=== PATIENT | female | born 1970 | race Hispanic/Latino ===

== ENCOUNTER 2017-09-27 10:29 | Inpatient (IN) | payer MEDICARE, OTHER ==
[2017-09-27] MEDS ORDERED: Sodium Chloride 0.9% 1,000 ML IV STA (11:54)
[2017-09-27] MEDS ORDERED: Iohexol 240 (50 ml) ONE (12:03)
[2017-09-27 12:24] LABS: PH,URINE 6.5 (4.7-8.0); URINE BILIRUBIN NEGATIVE (NEGATIVE); URINE BLOOD NEGATIVE (NEGATIVE); URINE GLUCOSE (UA) NEGATIVE (NEGATIVE); URINE LEUKOCYTE ESTERASE TRACE Leu/uL (NEGATIVE); URINE PROTEIN NEGATIVE mg/dL (<30 mg/dL); URINE UROBILINOGEN 0.2 E.U./dL (<1 E.U./dL)
[2017-09-27 12:25] LABS: URINE APPEARANCE CLEAR (CLEAR); URINE COLOR YELLOW (YELLOW)
[2017-09-27 12:28] LABS: URINE AMORPHOUS SEDIMENT FEW; URINE BACTERIA MANY (NEG); URINE RBC 0 - 2 /hpf (0-2)
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
[2017-09-27 12:41] LABS: BASO # 0.08 K/mm3 (0.0-2.0); BASO % 0.8 % (0.0-3.0); EOS # 0.5 (0.0-0.7); EOS % 4.3 % (1.5-5.0); GRAN # 7.49 (1.4-6.5); GRAN % 70.8 % (50.0-68.0); HEMOGLOBIN 11.8 g/dL (12.0-16.0); LYMPH # 2.1 (1.2-3.4); LYMPH % 19.6 % (22.0-35.0); MEAN CELL VOLUME 88.2 fl (80.0-105.0); MEAN CORPUSCULAR HEMOGLOBIN 28.3 pg (25.0-35.0); MEAN CORPUSCULAR HGB CONC 32.1 g/dl (31.0-37.0); MEAN PLATELET VOLUME 8.2 fl (7.0-11.0); MONO # 0.5 (0.1-0.6); MONO % 4.5 % (1.0-6.0); RBC 4.17 10^6/uL (3.5-6.1); RED CELL DISTRIBUTION WIDTH 15.3 % (11.5-14.5); WHITE BLOOD COUNT 10.6 10^3/ul (4.5-11.0)
[2017-09-27 12:47] LABS: VENOUS BLOOD GAS BASE EXCESS -1.1 mmol/L (0.0-2.0); VENOUS BLOOD GAS PO2 69 mm/Hg (30-55); VENOUS BLOOD PH 7.29 (7.32-7.43)
[2017-09-27 12:54] LABS: ALB/GLOB RATIO 1.4 (1.1-1.8); ALT/SGPT 35 U/L (7-56); AST/SGOT 23 U/L (14-36); BLOOD UREA NITROGEN 13 mg/dL (7-21); CALCIUM 8.7 mg/dL (8.4-10.5); GFR AFRICAN-AMERICAN > 60; GFR NON-AFRICAN AMERICAN 54; LIPASE 112 U/L (23-300)
[2017-09-27 12:55] LABS: INR 0.91 (0.93-1.08); PARTIAL THROMBOPLASTIN TIME 38.7 Seconds (25.1-36.5); PROTHROMBIN TIME 10.5 SECONDS (9.4-12.5)
[2017-09-27] MEDS ORDERED: Iohexol 350 MG/100 ML VIAL ONE (13:02)
[2017-09-27 14:54] LABS: BARBITURATES, UR NEGATIVE (NEGATIVE); BENZODIAZEPINES, UR NEGATIVE (NEGATIVE); OPIATES, UR NEGATIVE (NEGATIVE); PHENCYCLIDINE, UR NEGATIVE (NEGATIVE)
--- NOTE | 2017-09-27 15:10 | CT ---
PROCEDURE: CT scan abdomen pelvis dated 09/27/2017 HISTORY: Abdominal pain with bloating, bloating, diarrhea; history of SLE COMPARISON: No prior study available comparison TECHNIQUE: Contiguous axial images of the abdomen and pelvis performed following oral and intravenous injection of approximately 100 cc of Omnipaque 350 contrast material. Additional 2 dimensional sagittal and coronal reformats generated. Radiation dose: Total exam DLP = This CT exam was performed using one or more of the following dose reduction techniques: Automated exposure control, adjustment of the mA and/or kV according to patient size, and/or use of iterative reconstruction technique. FINDINGS: LOWER THORAX: Lung bases are clear. No infiltrate effusion or basilar pneumothorax. There is a small hiatal hernia with slight wall thickening of the distal esophagus that could be due to protrusion of gastric mucosa however possibility of esophagitis not excluded. Clinical correlation recommended. Heart size within range of normal. No significant pericardial effusion. LIVER: Liver exhibits relatively upper limits normal size measuring over 18.0 cm. No obvious hepatic masses or collections. Portal and splenic veins are opacified. . Some very minimal central intrahepatic biliary ductal dilatation. GALLBLADDER AND BILE DUCTS: Cholecystectomy. PANCREAS: Pancreas appears grossly unremarkable without masses collections or calcifications. . SPLEEN: Spleen exhibits normal size and attenuation pattern. ADRENALS: There are no adrenal lesions. KIDNEYS AND URETERS: There are several tiny less than 3 mm bilateral renal calculi. . Probable very tiny cyst posterolateral mid cortex mid pole left kidney. Mild prominence of the left renal pelvis and proximal left ureter however no evidence of calculi seen within the ureters. Urinary BLADDER: Urinary bladder is incompletely distended which presumably accounts in part for thick-walled appearance. Rule out cystitis with followup urinalysis. REPRODUCTIVE: Uterus and adnexal structures appear grossly unremarkable. APPENDIX: Seen on axial coronal sequence image number [id number]. No periappendiceal inflammatory changes however note made of at least 2 small nonspecific mesenteric lymph nodes right lower quadrant of the abdomen ; rule out mesenteric adenitis. BOWEL: Evaluation of the bowel is limited due to the incomplete opacification. . The visualized small bowel exhibit normal contour and caliber. No evidence of acute mechanical small bowel obstruction. Moderate amount stool seen throughout the cecum ascending and transverse colon. Note that most of the descending colon is collapsed which may in part account for wall thickening however the possibility of an inflammatory process given the patient's history of diarrheal illness not excluded. Clinical correlation recommended. There are also colonic diverticula the bulk which arise from the sigmoid colon which felt to be incidental . No significant diverticular changes are seen along the aforementioned segment of descending colon. There is also a very minor wall thickening of the distal sigmoid colon nonspecific though again inflammatory process not excluded. PERITONEUM: Unremarkable. No fluid collection. No free air. LYMPH NODES: Unremarkable. No enlarged lymph nodes. VASCULATURE: No evidence of abdominal aortic or iliac artery aneurysms. BONES: Mild multilevel degenerative spondylosis of the lower thoracic and lumbar spine. OTHER FINDINGS: None. IMPRESSION: There is collapse of the descending colon which may in part account for thick-walled appearance however the patient's history of diarrheal illness the, the possibility of a nonspecific mild colitis must be considered. In addition, there appears to be minor wall thickening of the distal sigmoid colon as well. Clinical correlation recommended. . There is also mild wall thickening of the urinary bladder which is likely due to underdistention no cystitis not excluded. Correlation with urinalysis recommended. Small hiatal hernia with wall thickening of the distal esophagus. Rule out esophagitis. There are several tiny less than 3 mm nonobstructing bilateral renal calculi Cholecystectomy. See above discussion for additional details and findings
[2017-09-27 20:10] VITALS: O2SAT 99
[2017-09-27] MEDS ORDERED: Albuterol HFA 90 mcg/actuation (8 g) IH PRN (21:52)
--- NOTE | 2017-09-27 22:13 | CARD ---
APPROVED REPORT EKG Measurement Heart [id number] <Conclusion> Sinus tachycardia Otherwise normal ECG
[2017-09-27] MEDS ORDERED: Alum-Mag Hydrox-Simethicone Susp (30 mL) PO PRN (23:05)
[2017-09-27] MEDS ORDERED: Magnesium Hydroxide Susp 30 ml UD PO PRN (23:05)
--- NOTE | 2017-09-28 01:58 | PCM.BM ---
<Myla Ellison - Last Filed: 09/28/17 01:55> Treatment Plan Problems - Problems identified on initial assessmt Visual Hallucinations Date Initiated: 09/28/17 Time Initiated: 01:55 Assessment reference: NA Status: Active Alteration in Emotional Status Date Initiated: 09/28/17 Time Initiated: 01:55 Assessment reference: NA Status: Active Ineffective Coping Date Initiated: 09/28/17 Time Initiated: 01:56 Assessment reference: NA Status: Active Treatment assets and liabiliti Patient Assests: cooperative, educated, ADL independent, good support system, negotiates basic needs, cognitively intact Patient Liabilities: financial problems, relationship conflicts, medical problems - Milieu Protocol Maintain good personal hygiene: daily Encourage regular showers, daily Remind patient to perform daily oral care, daily Assist patient to perform ADL's Conduct patient checks and document Observation sheet: Q15 minutes Maintain personal safety: every shift Educate patient to report safety concerns to staff, every shift Monitor environment for contraband/sharps Medication safety: Monitor for expected outcome, potential side effects: every shift, Assess barriers to learning: every shift, Assess readiness for medication education: every shift Discharge/Continuing Care - Education Needs Education Needs: Patient Medication, Patient Diagnosis/Disease Process, Patient Coping Skills, Patient Community resources, Patient Activities of Daily Living, Patient Pain, Patient Nutrition, Patient Health Practices/Safety, Patient Aftercare Safety Plan - Discharge Discharge Criteria: Tolerates medication w/o severe side effects, Free of Suicidal thoughts, Free of paranoid thoughts, Normal sleep pattern, Ability to care for self, Reduction of target symptoms <Iva Guillermo - Last Filed: 09/28/17 12:49> - Diagnosis (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 Interventions: 09/28/17 12:50 Psychoeducation supportive therapy Psychopharmacology/adjustment of medications as needed/ monitoring possible side effects Evaluate pt on daily basis Compliance with medications and follow up appointments Long acting medication if pt is noncompliant with pill form Suicide and homicide risk assessment and prevention, coping strategies, safety plan Relapse prevention Reduction of symptoms Improve functional status Possible assertive community treatment Cognitive behavioral therapy Family involvement Possible social skill training as outpatient (2) Generalized anxiety disorder Status: Acute Interventions: 09/28/17 12:51 Psychoeducation Psychopharmacology/adjustment of medications as needed/ monitoring possible side effects Evaluate pt on daily basis Discussion of importance of being compliant with medications and follow up appointments Suicide and homicide risk assessment and prevention, coping strategies, safety plan Reduction of symptoms Relaxation techniques and breathing exercises Improve functional status Family involvement Cognitive behavioral therapy as outpatient <Dolores Ramos - Last Filed: 09/29/17 16:32> Family Contact - Outside Agency Dr. Gurjit Rai [facility] involvment: Information-sharing Agency contact name: Dr. Gurjit Rai Agency contact number: [phone] <Luz Elena hRodes - Last Filed: 09/29/17 17:50> Family Contact Family involvement: Family/SO is involved Family contact: Patient agrees to contact
[2017-09-28 07:34] VITALS: RESP 20
[2017-09-28 07:55] LABS: GLUCOSE,FASTING 91 mg/dL (65-110); HDL CHOLESTEROL 43 mg/dL (29-60)
[2017-09-28 08:06] LABS: LDL CHOLESTEROL 75 mg/dL (0-129)
[2017-09-28] MEDS ORDERED: Potassium Chloride 20 mEq ER Tab PO STA (08:46)
--- NOTE | 2017-09-28 12:49 | PCM.PSYCH ---
Initial Psychiatric Evaluation - Initial Psychiatric Evaluation Type of Admission: Voluntary Legal Status: Capacity (Patient has capacity to sign consent for treatment) Chief Complaint (in patient's own words): "I was not feeling well, was feeling worm lives in my nose, I also saw germs as well as worms in my stool, I need to to show emergency room doctor what was going on" Patient's Reaction to Hospitalization: patient was admitted to the psychiatric inpatient unit for evaluation and stabilization of psychosis, inability to function, disorganized thoughts and disorganized behavior. History of Present Illness and Precipitating Events: shortly, patient's 47 year old female, reported history of major depressive disorder as well as generalized anxiety disorder, PTSD, patient also has multiple medical issues including Lupus endometriosis, pituitary adenomas/p transsphenoidal resection, and trigeminal neuralgia s/p stereotactic radiosurgery, 1 previous psychiatric admission about a year ago at [facility] for psychosis, patient currently under care of of Dr. Orlando Baeza in the community, patient brought herself to the hospital complaining of parasites live insight her nose and pt took pictures and videos of her stool to show the parasites in the ED, pt had course of the steroids about a week ago prior, pt was compliant with medications, but obviously failed outpatient treatment, patient requires further evaluation and stabilization into the psychiatric inpatient unit, education titration. Patient was seen today at the treatment team meeting groomed, patient presented to be older than her chronological age, acceptable personal hygiene, good ADLs. Patient presented with disorganized thoughts and behavior, patient was fixated on the part sides which are leaving in her nose, as well as in her stool. Patient reported that now she feels little better compared 8 year ago when she required to be admitted to the psychiatric inpatient unit a [facility], patient said "but then I was feeling parasites are all over my body", patient said that back then she was treated with steroids as well. patient reported that one week ago she was treated with steroids, shortly after she started to have hallucinations. Patient reported that she was feeling depressed, hopeless, helpless, but denied thoughts of harming herself or others. Patient denied hearing voices, denied seeing things, but obviously presented to be guarded, paranoid, as well as psychotic. Patient denied history of being abused, denied any flashbacks and nightmares in the past. patient denied using drugs, denied smoking, denied alcohol consumption. No manic symptoms elicited. patient reported that she feels anxious, reported that she is staying home most of the times, patient feels on ease in the social situation, panic attacks more frequent. Past psychiatric history: As described are mentioned above 1 previous psychiatric admission about a year ago with the same presentation a [facility]. Patient reported that she is seeing Dr. Gurjit Rai (psychiatrist ) in the community. patient also was on stimulants by . Amphetamines. 40mg daily. medical history: Patient has significant medical history for pituitary adenoma, status post resection, trigeminal neuralgia, endometriosis, Lupus, hypothyroidism, sinusitis family history: Patient denied, but as per emergency room evaluation, family has strong history of substance abuse but that this questionable needs clarification. 09/27/17 12:30 09/27/17 12:30 Lab Results 09/28/17 07:10: Fasting Glucose 91, Triglycerides 144, Cholesterol 160, LDL Cholesterol Direct 75, HDL Cholesterol 43 09/28/17 07:10: TSH 3rd Generation 0.13 L 09/27/17 20:49: POC Glucose (mg/dL) 80 09/27/17 15:30: Stool Occult Blood Negative 09/27/17 14:00: Urine Opiates Screen Negative, Urine Methadone Screen Negative, Ur Barbiturates Screen Negative, Ur Phencyclidine Scrn Negative, Ur Amphetamines Screen Positive H, U Benzodiazepines Scrn Negative, U Oth Cocaine Metabols Negative, U Cannabinoids Screen Negative 09/27/17 12:30: Free T4 1.22 09/27/17 12:30: TSH 3rd Generation 0.17 L 09/27/17 12:30: pO2 69 H, VBG pH 7.29 L, VBG pCO2 55.0, VBG HCO3 26.4, VBG Total CO2 28.1 H, VBG O2 Sat (Calc) 95.0 H, VBG Base Excess -1.1 L, VBG Potassium 3.4 L, Sodium 138.0, Chloride 107.0, Glucose 125 H, Lactate 0.9, FiO2 21.0, Venous Blood Potassium 3.4 L 09/27/17 12:30: Sodium 140, Chloride 105, Potassium 3.5 L, Carbon Dioxide 25, Anion Gap 13, BUN 13, Creatinine 1.1, Est GFR ( Amer) > 60, Est GFR (Non- Af Amer) 54, Random Glucose 123 H, Calcium 8.7, Total Bilirubin < 0.1 L, AST 23 , ALT 35, Alkaline Phosphatase 91, Total Protein 6.9, Albumin 4.0, Globulin 2.9 , Albumin/Globulin Ratio 1.4, Lipase 112 09/27/17 12:30: PT 10.5, INR 0.91 L, APTT 38.7 H 09/27/17 12:30: WBC 10.6, RBC 4.17, Hgb 11.8 L, Hct 36.8, MCV 88.2, MCH 28.3, MCHC 32.1, RDW 15.3 H, Plt Count 371, MPV 8.2, Gran % 70.8 H, Lymph % (Auto) 19.6 L, [place] % (Auto) 4.5, Eos % (Auto) 4.3, Baso % (Auto) 0.8, Gran # 7.49 H, Lymph # (Auto) 2.1, [place] # (Auto) 0.5, Eos # (Auto) 0.5, Baso # (Auto) 0.08, ESR 18 09/27/17 12:00: Urine Color Yellow, Urine Appearance Clear, Urine pH 6.5, Ur Specific [place] 1.020, Urine Protein Negative, Urine Glucose (UA) Negative, Urine Ketones Negative, Urine Blood Negative, Urine Nitrate Negative, Urine Bilirubin Negative, Urine Urobilinogen 0.2, Ur Leukocyte Esterase Trace H, Urine RBC 0 - 2, Urine WBC 2 - 5, Ur Epithelial Cells 6 - 8, Amorphous Sediment Few, Urine Bacteria Many, Urine Other Fiber Vital Signs Temp Pulse Resp BP Pulse Ox 09/28/17 07:32 97.7 F 94 H 20 130/77 09/27/17 21:00 16 09/27/17 19:09 72 16 122/78 99 09/27/17 17:30 76 16 130/77 98 09/27/17 15:27 79 18 128/69 99 09/27/17 13:00 89 18 131/74 99 09/27/17 11:20 99 H 18 135/79 99 09/27/17 10:39 98.5 F 117 H 16 139/86 97 patient pharmacy was called Patient was on Lexapro 20 mg daily Amphetamine 30 mg daily Klonopin 0.5 mg 3 times a day daily alternating with Ativan 1 mg 3 times Patient reported that she was doing well on Zoloft which she wants to be continued on, we will discontinue Lexapro as well as amphetamines, Ativan will be continued 1 mg 3 times a day, medical consult will be called,Risperdal 0.25 mg twice a day for psychosis will be started. Patient was in agreement with the treatment plan. 09/27/17 12:30 09/27/17 12:30 Lab Results 09/28/17 07:10: Fasting Glucose 91, Triglycerides 144, Cholesterol 160, LDL Cholesterol Direct 75, HDL Cholesterol 43 09/28/17 07:10: TSH 3rd Generation 0.13 L 09/27/17 20:49: POC Glucose (mg/dL) 80 09/27/17 15:30: Stool Occult Blood Negative 09/27/17 14:00: Urine Opiates Screen Negative, Urine Methadone Screen Negative, Ur Barbiturates Screen Negative, Ur Phencyclidine Scrn Negative, Ur Amphetamines Screen Positive H, U Benzodiazepines Scrn Negative, U Oth Cocaine Metabols Negative, U Cannabinoids Screen Negative 09/27/17 12:30: Free T4 1.22 09/27/17 12:30: TSH 3rd Generation 0.17 L 09/27/17 12:30: pO2 69 H, VBG pH 7.29 L, VBG pCO2 55.0, VBG HCO3 26.4, VBG Total CO2 28.1 H, VBG O2 Sat (Calc) 95.0 H, VBG Base Excess -1.1 L, VBG Potassium 3.4 L, Sodium 138.0, Chloride 107.0, Glucose 125 H, Lactate 0.9, FiO2 21.0, Venous Blood Potassium 3.4 L 09/27/17 12:30: Sodium 140, Chloride 105, Potassium 3.5 L, Carbon Dioxide 25, Anion Gap 13, BUN 13, Creatinine 1.1, Est GFR ( Amer) > 60, Est GFR (Non- Af Amer) 54, Random Glucose 123 H, Calcium 8.7, Total Bilirubin < 0.1 L, AST 23 , ALT 35, Alkaline Phosphatase 91, Total Protein 6.9, Albumin 4.0, Globulin 2.9 , Albumin/Globulin Ratio 1.4, Lipase 112 09/27/17 12:30: PT 10.5, INR 0.91 L, APTT 38.7 H 09/27/17 12:30: WBC 10.6, RBC 4.17, Hgb 11.8 L, Hct 36.8, MCV 88.2, MCH 28.3, MCHC 32.1, RDW 15.3 H, Plt Count 371, MPV 8.2, Gran % 70.8 H, Lymph % (Auto) 19.6 L, [place] % (Auto) 4.5, Eos % (Auto) 4.3, Baso % (Auto) 0.8, Gran # 7.49 H, Lymph # (Auto) 2.1, [place] # (Auto) 0.5, Eos # (Auto) 0.5, Baso # (Auto) 0.08, ESR 18 09/27/17 12:00: Urine Color Yellow, Urine Appearance Clear, Urine pH 6.5, Ur Specific [place] 1.020, Urine Protein Negative, Urine Glucose (UA) Negative, Urine Ketones Negative, Urine Blood Negative, Urine Nitrate Negative, Urine Bilirubin Negative, Urine Urobilinogen 0.2, Ur Leukocyte Esterase Trace H, Urine RBC 0 - 2, Urine WBC 2 - 5, Ur Epithelial Cells 6 - 8, Amorphous Sediment Few, Urine Bacteria Many, Urine Other Fiber Vital Signs Temp Pulse Resp BP Pulse Ox 09/28/17 07:32 97.7 F 94 H 20 130/77 09/27/17 21:00 16 09/27/17 19:09 72 16 122/78 99 09/27/17 17:30 76 16 130/77 98 09/27/17 15:27 79 18 128/69 99 09/27/17 13:00 89 18 131/74 99 09/27/17 11:20 99 H 18 135/79 99 09/27/17 10:39 98.5 F 117 H 16 139/86 97 SLE (x25 years), MDD/ALICE, PTSD, endometriosis, pituitary adenoma s/p transsphenoidal resection, and trigeminal neuralgia s/p stereotactic radiosurgery History of hospitalization for hallucinations Current Medications: Active Medications Generic Name Dose Route Start Last Admin Trade Name Freq PRN Reason Stop Dose Admin Acetaminophen 650 mg 09/27/17 23:05 09/28/17 06:19 Tylenol 325mg Tab PO 650 mg Q6H PRN Administration Pain, Mild (1-3) Al Hydrox/Mg Hydrox/Simethicone 30 ml 09/27/17 23:05 Maalox Plus 30 Ml PO DAILY PRN Upset Stomach Albuterol 2 puff 09/27/17 21:52 Ventolin Hfa 90 Mcg/Actuation (8 G) IH [id number] PRN Shortness of Breath Gabapentin 300 mg 09/27/17 19:30 09/28/17 09:25 Neurontin PO 300 mg BID BYRON Administration Protocol Lorazepam 1 mg 09/27/17 22:00 09/28/17 09:25 Ativan PO 1 mg AMHS BYRON Administration Protocol Magnesium Hydroxide 30 ml 09/27/17 23:05 Milk Of Magnesia PO DAILY PRN Constipation Sertraline HCl 25 mg 09/28/17 08:00 09/28/17 09:28 Zoloft PO 25 mg DAILY BYRON Administration Past Psychiatric History - Past Psychiatric History Previous Treatment History: Inpatient Prior Professional Help: see HPI Prior Psychiatric Treatment: see HPI At what hospital: see HPI Duration: see HPI Nature of Treatment: see HPI Explanation of prior treatment: SLE (x25 years), MDD/ALICE, PTSD, endometriosis, pituitary adenoma s/p transsphenoidal resection, and trigeminal neuralgia s/p stereotactic radiosurgery History of hospitalization for hallucinations History of Abuse: see HPI History of ETOH/Drug Use: see HPI History of Family Illness: see HPI Pertinent Medical Hx (Current Medical&Sleep Prob, Allergies): Allergies Allergy/AdvReac Type Severity Reaction Status Date / Time latex Allergy RASH Verified 09/27/17 23:10 metronidazole [From Flagyl] Allergy RASH Verified 09/27/17 23:10 Penicillins Allergy ANGIOEDEMA Verified 09/27/17 23:10 Sulfa (Sulfonamide Allergy ANGIOEDEMA Verified 09/27/17 23:10 Antibiotics) cephalexin [From Keflex] AdvReac DIZZINESS Verified 09/27/17 23:10 Brexpiprazole [Rexulti] 1 mg PO DAILY 09/27/17 Dextroamphetamine/Amphetamine [Adderall 20 mg Tablet] 20 mg PO TID 09/27/17 Escitalopram [Lexapro] 20 mg PO DAILY 09/27/17 Furosemide [Lasix] 10 mg PO PRN PRN 09/27/17 Hydroxychloroquine Sulfate [Plaquenil] 200 mg PO DAILY 09/27/17 LORazepam [Ativan] 1 mg PO TID 09/27/17 Lactobacil 2-S.thermo-Bifido 1 [Vsl#3 Capsule] 1 cap PO DAILY 09/27/17 Levothyroxine [Levoxyl] 0.025 mg PO DAILY 09/27/17 Multivitamin/Iron/Folic Acid [Centrum Women Tablet] 1 tab PO DAILY 09/27/17 RX: Gabapentin [Neurontin] 300 mg PO BID 09/27/17 RX: Vitamin D3/Vitamin K2 (Mk4) [K2 Plus D3 Tablet] 1 tab PO DAILY 09/27/17 Topiramate [Topamax] 25 mg PO DAILY 09/27/17 Ubidecarenone [Coq-10] 1 cap PO DAILY 09/27/17 levoFLOXacin [Levaquin] 500 mg PO DAILY 09/27/17 Review of Systems - Review of Systems Systems not reviewed;Unavailable: Acuity of Condition - EENT Eyes: As Per HPI Ears: As Per HPI Nose/Mouth/Throat: As Per HPI - Breasts Breasts: As Per HPI - Cardiovascular Cardiovascular: As Per HPI - Respiratory Respiratory: As Per HPI - Gastrointestinal Gastrointestinal: As Per HPI - Genitourinary Genitourinary: As Per HPI - Reproductive: Female Reproductive:Female: As Per HPI - Menstruation Menstruation: As Per HPI - Musculoskeletal Musculoskeletal: As Par HPI - Integumentary Integumentary: As Per HPI - Neurological Neurological: As Per HPI - Psychiatric Psychiatric: As Per HPI - Endocrine Endocrine: As Per HPI - Hematologic/Lymphatic Hematologic: As Per HPI Mental Status Examination - Personal Presentation Personal Presentation: Looks stated age - Affect Affect: Constricted, Blunted, Flat - Motor Activity Motor Activity: Psychomotor Retardation - Reliability in Providing Information Reliability in Providing Information: Fair - Speech Speech: Disorganized, Tangential - Mood Mood: Depressed, Anxious - Formal Thought Process Formal Thought Process: Hallucinations, Delusions, Paranoia - Obsessions/Compulsions Obsessions: None Compulsions: None - Cognitive Functions Orientation: Person Sensorium: Alert Attention/Concentration: Easily distracted Abstract Thinking: [place] Estimate of Intelligence: Average Judgement: Intact, as evidence by: Insight regarding need for hospitalization - Risk Risk: Self-mutilation, Diminished functioning - Strength & Assets Inventory Strength & Assets Inventory: Cooperative, Other (no substance abuse h/o) - Limitations Limitations: Other (multiple medical issues) DSM 5 DX - DSM 5 DSM 5 Diagnosis: rule out psychosis due to general medical condition patient has low post, was on steroids Rule out substance and medication induced psychosis, patient was on stimulants rule out major depressive disorder with psychosis rule out generalized anxiety disorder and panic disorder - Recommended/Plan of Treatment Treatment Recommendations and Plan of Treatment: Milieu/structure/supportive therapy consultation for discharge plan and social issues Med management we'll discontinue amphetamine We'll discontinue Lexapro We'll discontinue Rexulti We'll start Risperdal 0.25 mg twice a day Zoloft 25 mg daily for depression and anxiety and panic disorder we'll continue with Ativan 1 mg twice a day We will call medical consultation Family involvement Follow up on labs Will monitor closely Pt was educated about risk/benefits and alternatives of medications, coping strategies (safety plan, suicide prevention), relapse prevention, importance of follow up with psychiatrist and therapist, stay away from drugs/alcohol/smoking Projected ELOS: 7 days Prognosis: guarded Discharge Plan and Discharge Criteria: Pt will be not depressed or manic, will be more hopeful, will be not psychotic or anxious, will be not having thoughts of harming self or others, will be tolerating medications well, will not have major side effects, will be able to function, will not pose threat to self or others. - Smoking Cessation Smoking Cessation Initiated: No Reason for not providing: patient denied smoking
--- NOTE | 2017-09-29 13:10 | PN ---
DATE: 09/29/2017 LOCATION: The patient is in [facility] in [facility]. SUBJECTIVE: The patient was admitted with depression and pain. ALLERGIES: THE PATIENT HAS MULTIPLE ALLERGIES. SHE IS ALLERGIC TO LATEX, METRONIDAZOLE, PENICILLIN, KEFLEX, AND SULFA. PAST MEDICAL HISTORY: The patient has history of systemic lupus. The patient also has a history of hypothyroidism and questionable history of asthma. The patient has history of pain in the legs. She has questionable peripheral neuropathy and retention of water. The patient is seen this morning. She is lying in bed. She states that she has back pain. PHYSICAL EXAMINATION: VITAL SIGNS: The patient's temperature is 98.4, pulse is 103, blood pressure 125/76, O2 saturation is 99% on room air. The patient's respiratory rate is 20 per minute. GENERAL: The patient appears to be comfortable. HEENT: The head is normocephalic. NECK: The thyroid is clinically not enlarged. The patient's JVP is flat. HEART: Normal sinus rhythm. S1 and S2 present. LUNGS: Trachea is central. Breath sounds vesicular. No adventitious sounds heard at this time. ABDOMEN: Soft. Liver and spleen are not palpable. CENTRAL NERVOUS SYSTEM: No focal deficits. The patient has back pain, possibly degenerative arthritis and the patient has history of lupus, so the patient will be put on Plaquenil, which she had before 200 mg daily. She is on Synthroid 25 mcg daily and she will be on a heart-healthy diet. The rest of the medications, the patient is on gabapentin 300 mg b.i.d. The patient is on Ventolin 2 puffs every 6 hours by metered-dose inhaler, Zoloft 25 mg daily, Risperdal 0.25 mg at night. LABORATORY DATA: The patient's blood work, hemoglobin is 11.8. The patient's chemistry, the blood sugar is 91. The triglycerides are 144, cholesterol is 160. The patient's TSH is low at 0.13. The patient is on lower dose of Synthroid. We will just repeat the TSH and we will follow up with the current management. We will give the patient Plaquenil, which is not introduced yet. Also, the patient has back pain, for which we will give the patient 400 mg of Motrin 3 times a day with food and we will follow up. Primitivo Toro MD [facility] # [id number] STEVEN
[2017-09-29 16:48] LABS: SOURCE STOOL
--- NOTE | 2017-09-29 17:11 | PCM.PYCHPN ---
Psychiatric Progress Note - Psychiatric Progress Note Patient seen today, length of contact: 30minutes Patient Chief Complaint: "I was not feeling well, was feeling worms in my nose, I also saw germs as well as worms in my stool, but not anymore" Problems Identified/Issues Discussed: Suicide/ homicide prevention, past psychiatric h/o, current psychiatric symptoms , medical problems, risk/benefits and alternatives of medications, medications compliance, coping strategies, substance abuse h/o, relapse prevention, importance of follow up with psychiatrist and therapist, discharge plan. Medical Problems: SLE (x25 years), MDD/ALICE, PTSD, endometriosis, pituitary adenoma s/p transsphenoidal resection, and trigeminal neuralgia s/p stereotactic radiosurgery History of hospitalization for hallucinations secondary to stimulant-induced psychosis about a year ago and [facility] as per mother Reagan [phone] Diagnostic Results: 09/27/17 12:30 09/27/17 12:30 Lab Results 09/28/17 07:10: Fasting Glucose 91, Triglycerides 144, Cholesterol 160, LDL Cholesterol Direct 75, HDL Cholesterol 43 09/28/17 07:10: RPR Nonreactive 09/28/17 07:10: TSH 3rd Generation 0.13 L 09/27/17 20:49: POC Glucose (mg/dL) 80 09/27/17 15:30: Stool Occult Blood Negative 09/27/17 14:00: Giardia Antigen Not detected 09/27/17 14:00: Stool Leukocytes, Qual Negative 09/27/17 14:00: Urine Opiates Screen Negative, Urine Methadone Screen Negative, Ur Barbiturates Screen Negative, Ur Phencyclidine Scrn Negative, Ur Amphetamines Screen Positive H, U Benzodiazepines Scrn Negative, U Oth Cocaine Metabols Negative, U Cannabinoids Screen Negative 09/27/17 14:00: Stl Cryptosporidium Ag Not detected, Cryptosp/Giardia Source Stool 09/27/17 12:30: Free T4 1.22 09/27/17 12:30: TSH 3rd Generation 0.17 L 09/27/17 12:30: pO2 69 H, VBG pH 7.29 L, VBG pCO2 55.0, VBG HCO3 26.4, VBG Total CO2 28.1 H, VBG O2 Sat (Calc) 95.0 H, VBG Base Excess -1.1 L, VBG Potassium 3.4 L, Sodium 138.0, Chloride 107.0, Glucose 125 H, Lactate 0.9, FiO2 21.0, Venous Blood Potassium 3.4 L 09/27/17 12:30: Sodium 140, Chloride 105, Potassium 3.5 L, Carbon Dioxide 25, Anion Gap 13, BUN 13, Creatinine 1.1, Est GFR ( Amer) > 60, Est GFR (Non- Af Amer) 54, Random Glucose 123 H, Calcium 8.7, Total Bilirubin < 0.1 L, AST 23 , ALT 35, Alkaline Phosphatase 91, Total Protein 6.9, Albumin 4.0, Globulin 2.9 , Albumin/Globulin Ratio 1.4, Lipase 112 09/27/17 12:30: PT 10.5, INR 0.91 L, APTT 38.7 H 09/27/17 12:30: WBC 10.6, RBC 4.17, Hgb 11.8 L, Hct 36.8, MCV 88.2, MCH 28.3, MCHC 32.1, RDW 15.3 H, Plt Count 371, MPV 8.2, Gran % 70.8 H, Lymph % (Auto) 19.6 L, Monroe % (Auto) 4.5, Eos % (Auto) 4.3, Baso % (Auto) 0.8, Gran # 7.49 H, Lymph # (Auto) 2.1, Monroe # (Auto) 0.5, Eos # (Auto) 0.5, Baso # (Auto) 0.08, ESR 18 09/27/17 12:00: Urine Color Yellow, Urine Appearance Clear, Urine pH 6.5, Ur Specific [place] 1.020, Urine Protein Negative, Urine Glucose (UA) Negative, Urine Ketones Negative, Urine Blood Negative, Urine Nitrate Negative, Urine Bilirubin Negative, Urine Urobilinogen 0.2, Ur Leukocyte Esterase Trace H, Urine RBC 0 - 2, Urine WBC 2 - 5, Ur Epithelial Cells 6 - 8, Amorphous Sediment Few, Urine Bacteria Many, Urine Other Fiber Vital Signs Temp Pulse Resp BP Pulse Ox 09/29/17 06:49 98.4 F 103 H 20 117/76 09/28/17 16:00 98 H 146/87 09/28/17 07:32 97.7 F 94 H 20 130/77 04/18/18 21:00 16 09/27/17 19:09 72 16 122/78 99 09/27/17 17:30 76 16 130/77 98 09/27/17 15:27 79 18 128/69 99 09/27/17 13:00 89 18 131/74 99 09/27/17 11:20 99 H 18 135/79 99 09/27/17 10:39 98.5 F 117 H 16 139/86 97 DSM 5 Symptoms Update: shortly, patient's 47 year old female, reported history of major depressive disorder as well as generalized anxiety disorder, PTSD, patient also has multiple medical issues including Lupus endometriosis, pituitary adenomas/p transsphenoidal resection (15 years ago), and trigeminal neuralgia s/p stereotactic radiosurgery, 1 previous psychiatric admission about a year ago at [facility] for psychosis, patient currently under care of of Dr. Orlando Baeza in the community, patient brought herself to the hospital complaining of parasites live insight her nose and pt took pictures and videos of her stool to show the parasites in the ED, pt had course of the steroids about a week ago prior, pt was compliant with medications, but obviously failed outpatient treatment, patient requires further evaluation and stabilization into the psychiatric inpatient unit, education titration. Patient was seen today at the treatment team meeting groomed, patient presented to be older than her chronological age, acceptable personal hygiene, good ADLs. patient submitted 48 hour notice, but during the treatment team meeting patient is willing to stay in the hospital and complete her treatment. patient still presented to be disorganized, difficult to stay focused and concentrate, patient denied any psychotic symptoms but obviously guarded and paranoid. Patient mother Reagan contacted this fiction and nonfiction writer [employer] [phone] as per Reagan patient was misusing and abusing Adderall, patient was concerned about patient, patient mother said that "even though that she is not seeing those creatures, I know it is her had still" patient was educated about treatment plan. patient tolerates medications well, no side effects observed or reported, aims 0 , no EPS. Patient complains of dizziness and vertigo, neurology consult was called. DSM 5 Diagnosis: rule out psychosis due to general medical condition patient has low post, was on steroids Rule out substance and medication induced psychosis, patient was on stimulants rule out major depressive disorder with psychosis rule out generalized anxiety disorder and panic disorder Medication Change: Yes (Risperdal increased, Zoloft increased) Medical Record Reviewed: Yes Consults ordered or reviewed: medical consult was called Urology consult was called Mental Status Examination - Cognitive Function Orientation: Person, Place, Situation Memory: Intact Attention: Poor Concentration: Poor Association: Loose Fund of Knowledge: WNL - Mood Mood: Depressed, Anxious - Affect Affect: Constricted, Blunted, Flat - Formal Thought Process Formal Thought Process: Hallucinations, Delusions, Paranoia - Suicidal Ideation Suicidal Ideation: No - Homicidal Ideation Homicidal Ideation: No Goal/Treatment Plan - Goal/Treatment Plan Need for Continued Stay: Remain at risks for inpatient hospitalization, Severe depression anxiety, Discharge may exacerbated symptoms, Severe functional impairment Progress Toward Problem(s) and Goals/Treatment Plan: Milieu/structure/supportive therapy SW consultation for discharge plan and social issues Med management amphetamine discontinued Lexapro discontinued Rexulti discontinued Risperdal 0.25 mg t the morning time and 0.5 mg at the nighttime for psychosis Zoloft 50 mg daily for depression and anxiety and panic disorder we'll continue with Ativan 1 mg twice a day We will call medical consultation Family involvement Follow up on labs Will monitor closely Pt was educated about risk/benefits and alternatives of medications, coping strategies (safety plan, suicide prevention), relapse prevention, importance of follow up with psychiatrist and therapist, stay away from drugs/alcohol/smoking Estimated Date of D/C: 10/05/17
--- NOTE | 2017-09-30 09:30 | PCM.PYCHPN ---
Psychiatric Progress Note - Psychiatric Progress Note Patient seen today, length of contact: 25 minutes Problems Identified/Issues Discussed: I reviewed assessment and recent notes. Patient has been guarded and disorganized on the unit. Focus is poor and thoughts are scattered. . She appears depressed and blunt during our interaction however reports that she is "okay, better". Oriented x3. Compliant with medications and denies any discomfort, side effects or pain except for back ache which she believes is because the bed is uncomfortable. Sleep has been restless. There were no behavioral issues overnight. Diagnostic Results: rule out psychosis due to general medical condition patient has low post, was on steroids Rule out substance and medication induced psychosis, patient was on stimulants rule out major depressive disorder with psychosis rule out generalized anxiety disorder and panic disorder Medication Change: Yes (Risperdal increased, Zoloft increased) Medical Record Reviewed: Yes Mental Status Examination - Cognitive Function Orientation: Person, Place, Situation Memory: Intact Attention: WNL Concentration: Poor Association: Loose Fund of Knowledge: WNL - Mood Mood: Depressed ("okay, better"), Anxious - Affect Affect: Constricted, Blunted, Flat - Formal Thought Process Formal Thought Process: Hallucinations (denies), Delusions (not elicited today) , Paranoia - Suicidal Ideation Suicidal Ideation: No - Homicidal Ideation Homicidal Ideation: No Goal/Treatment Plan - Goal/Treatment Plan Need for Continued Stay: Remain at risks for inpatient hospitalization, Severe depression anxiety, Discharge may exacerbated symptoms, Severe functional impairment Progress Toward Problem(s) and Goals/Treatment Plan: * c/w current tx and plan * Sonata 5 mg HS prn started 09/30/17 for restless sleep * No new weekend labs thus far * Vitals reviewed and noted below: Selected Entries 09/30/17 07:11 Temperature 97.7 F Pulse Rate 107 H Respiratory 20 Rate Blood Pressure 124/80 Estimated Date of D/C: 10/05/17
--- NOTE | 2017-09-30 12:55 | CP.PCM.CON ---
History of Present Illness - History of Present Illness History of Present Illness: 47 yr old woman who was initially seen in the ER after being reported to have visual hallucinations of seeing parasites in her stool and maggots in her nose , with pmh of SLE for 25 years, PTSD, s/p trigeminal neuralgia with radiosurgery performed and who is also recently been placed on Adderal. There were no tonic clonic seizures reported, nor was there loss of consciousness. The patient has a history of depression, anxiety and adhd, but no history of epilepsy or stroke. PMH/PSH: as above FH/SH: as per chart All: metronidazole, latex, penicillins on exam: Neurology exam is normal but her thought process is tangential and her sensory exam in not accurate. She was able to name and repeat and memory testing was normal. she refused to draw clock or pentagons. Gait was normal. Past Patient History - Infectious Disease Hx of Infectious Diseases: None - Tetanus Immunizations Tetanus Immunization: Unknown - Past Social History Smoking Status: Never Smoked - CARDIAC Hx Cardiac Disorders: No - PULMONARY Hx Respiratory Disorders: No - NEUROLOGICAL Hx Neurological Disorder: No - HEENT Hx HEENT Problems: Yes Hx Sinusitis: Yes - RENAL Hx Chronic Kidney Disease: No - ENDOCRINE/METABOLIC Hx Endocrine Disorders: Yes Hx Hypothyroidism: Yes Hx Systemic Lupus Erythematosus: Yes - HEMATOLOGICAL/ONCOLOGICAL Hx Blood Disorders: Yes Other/Comment: LUPUS - INTEGUMENTARY Hx Dermatological Problems: No - MUSCULOSKELETAL/RHEUMATOLOGICAL Hx Musculoskeletal Disorders: No - GASTROINTESTINAL Hx Gastrointestinal Disorders: Yes - GENITOURINARY/GYNECOLOGICAL Hx Genitourinary Disorders: Yes Other/Comment: PELVIC SURGERY - PSYCHIATRIC Hx Psychophysiologic Disorder: Yes Hx Depression: Yes Hx Post Traumatic Stress Disorder: Yes Hx Substance Use: No - SURGICAL HISTORY Other/Comment: PELVIC, LAPAROSCOPY - ANESTHESIA Hx Anesthesia: Yes Meds Allergies/Adverse Reactions: Allergies Allergy/AdvReac Type Severity Reaction Status Date / Time latex Allergy RASH Verified 09/27/17 23:10 metronidazole [From Flagyl] Allergy RASH Verified 09/27/17 23:10 Penicillins Allergy ANGIOEDEMA Verified 09/27/17 23:10 Sulfa (Sulfonamide Allergy ANGIOEDEMA Verified 09/27/17 23:10 Antibiotics) cephalexin [From Keflex] AdvReac DIZZINESS Verified 09/27/17 23:10 - Medications Medications: Current Medications Acetaminophen (Tylenol 325mg Tab) 650 mg PO Q6H PRN PRN Reason: Pain, Mild (1-3) Last Admin: 09/29/17 22:39 Dose: 650 mg Al Hydrox/Mg Hydrox/Simethicone (Maalox Plus 30 Ml) 30 ml PO DAILY PRN PRN Reason: Upset Stomach Albuterol (Ventolin Hfa 90 Mcg/Actuation (8 G)) 2 puff IH [id number] PRN PRN Reason: Shortness of Breath Gabapentin (Neurontin) 300 mg PO BID BYRON PRN Reason: Protocol Last Admin: 09/30/17 09:35 Dose: 300 mg Lorazepam (Ativan) 1 mg PO AMHS BYRON PRN Reason: Protocol Last Admin: 09/30/17 09:35 Dose: 1 mg Magnesium Hydroxide (Milk Of Magnesia) 30 ml PO DAILY PRN PRN Reason: Constipation Risperidone (Risperdal Tab) 0.5 mg PO HS BYRON PRN Reason: Protocol Last Admin: 09/29/17 21:16 Dose: 0.5 mg Risperidone (Risperdal Tab) 0.25 mg PO DAILY BYRON PRN Reason: Protocol Last Admin: 09/30/17 09:35 Dose: 0.25 mg Sertraline HCl (Zoloft) 50 mg PO DAILY BYRON Last Admin: 09/30/17 09:35 Dose: 50 mg Zaleplon (Sonata) 5 mg PO HS PRN PRN Reason: Insomnia Results - Vital Signs Recent Vital Signs: Last Vital Signs Temp 97.7 F 09/30/17 07:11 Pulse 107 H 09/30/17 07:11 Resp 20 09/30/17 07:11 BP 124/80 09/30/17 07:11 Pulse Ox 99 09/27/17 19:09 - Labs Result Diagrams: 09/27/17 12:30 10/01/17 10:20 Assessment & Plan - Assessment and Plan (Free Text) Assessment: 47 yr old woman with most likely psychosis that could be related to recent Adderal commencement with possibility of epilepsy as well. PLan; 1. EEG 2. MRI Brain with rachell our team will follow Thank you Dr. Austin
--- NOTE | 2017-09-30 13:37 | PN ---
DATE : 09/30/17 SUBJECTIVE: The patient is in Behavioral Care Unit. The patient is admitted with depression. The patient also has back pain. The patient has had history of hypothyroidism and occasional intermittent history of asthma. The patient is seen this morning. She is comfortable, has no acute complaints. PHYSICAL EXAMINATION: VITAL SIGNS: Pulse is 107, blood pressure 124/80, the patient's respirations of 20, O2 sat 97% on room air, temperature 97.7. HEENT: Head is normocephalic. NECK: Thyroid is not enlarged. No elevation of JVP. LUNGS: Trachea is central. Breath sounds are vesicular. No adventitious sounds. HEART: Normal sinus rhythm. Sinus tachycardia. ABDOMEN: Soft. Liver and spleen not palpable. CENTRAL NERVOUS SYSTEM: No focal deficits are noted. MEDICATIONS: The patient's medication consists of Atrovent. The patient is on magnesium, gabapentin, risperidone and albuterol 2 puffs by metered dose inhaler every 6 hours. LABORATORY DATA: The patient's blood work remains stable, CBC and chemistry. ASSESSMENT AND PLAN: The patient's condition is stable. The patient needs a followup with the Behavioral Care Unit. Medical condition seemed to be stable at this time. We will repeat the TSH on the patient because the last TSH was 0.13, which suggested the patient is overtreated with Synthroid. We will discontinue the Synthroid and follow up. Primitivo Toro MD MTDTish
--- NOTE | 2017-10-01 09:34 | PCM.PYCHPN ---
Psychiatric Progress Note - Psychiatric Progress Note Patient seen today, length of contact: 25 minutes Patient Chief Complaint: "okay, better than before" Problems Identified/Issues Discussed: I reviewed assessment and recent notes. Patient has been guarded and quiet on the unit. Focus is poor and thoughts are scattered. She appears depressed and blunt during our interaction however reports that her she is "okay, better than before". Appears internally preoccupied but not noted to be responding to internal stimuli. Denies hallucinations and she is oriented to month, year location. Requested medication to help with anxiety during the day yesterday, reported that vistaril 50 mg x1 was beneficial, though still would like a dose of ativan during the day. Compliant with medications and denies any discomfort, side effects or pain except for back ache which she believes is because the bed is uncomfortable. She slept better last night and appetite is good. There were no behavioral issues over the weekend thus far. Diagnostic Results: rule out psychosis due to general medical condition patient has low post, was on steroids Rule out substance and medication induced psychosis, patient was on stimulants rule out major depressive disorder with psychosis rule out generalized anxiety disorder and panic disorder Medication Change: Yes (Sonata started on 09/30 & Vistaril started on 10/01) Medical Record Reviewed: Yes Mental Status Examination - Cognitive Function Orientation: Person, Place, Situation Memory: Intact Attention: WNL Concentration: Poor Association: Loose Fund of Knowledge: WNL - Mood Mood: Depressed ( "okay, better than before"), Anxious - Affect Affect: Constricted, Blunted, Flat - Formal Thought Process Formal Thought Process: Hallucinations (denied all weekend), Delusions (not elicited today), Paranoia - Suicidal Ideation Suicidal Ideation: No - Homicidal Ideation Homicidal Ideation: No Goal/Treatment Plan - Goal/Treatment Plan Need for Continued Stay: Remain at risks for inpatient hospitalization, Severe depression anxiety, Discharge may exacerbated symptoms, Severe functional impairment Progress Toward Problem(s) and Goals/Treatment Plan: * c/w current tx and plan * Appreciate f/u by Dr. Toro on 09/30/17~rechecking TSH to r/o overtreatment with synthroid * Appreciate f/u by Dr. Austin on 09/30/17 * Sonata 5 mg HS prn started 09/30/17 for restless sleep with good effect * Vistaril 50 mg po q12 prn started on 10/01/17 for anxiety * No new weekend labs thus far * Vitals reviewed and noted below: 10/01/17 07:45 Temperature 98.5 F Pulse Rate 77 Respiratory 20 Rate Blood Pressure 131/84 Estimated Date of D/C: 10/05/17
[2017-10-01 10:52] LABS: BLOOD UREA NITROGEN 19 mg/dL (7-21); CALCIUM 9.5 mg/dL (8.4-10.5); GFR AFRICAN-AMERICAN > 60; GFR NON-AFRICAN AMERICAN > 60
[2017-10-01 11:08] LABS: FREE T4 0.93 ng/dL (0.78-2.19)
--- NOTE | 2017-10-01 12:12 | PN ---
DATE: 10/01/17 SUBJECTIVE: The patient is in [facility] in [facility]. This is a 47-year-old white female. She has depression, suicidal tendency. THE PATIENT IS ALLERGIC TO LATEX, METRONIDAZOLE, PENICILLIN, SULFA AND KEFLEX. The patient has been on multiple medications in the past, Ativan, Risperdal and Zoloft. The patient also has intermittent asthma, for which she takes albuterol. She had diagnosis of mild hypothyroidism, she takes 25 mcg of Synthroid for that. The patient is improving. She is ambulating. She seems to be participating. PHYSICAL EXAMINATION: VITAL SIGNS: The patient's pulse 77, blood pressure 130/84, respirations are 20. The patient has 98% O2 saturation on room air, temperature 98.5. HEENT: The head is normocephalic. LUNGS: Clear. HEART: Normal sinus rhythm. ABDOMEN: Soft. Liver and spleen not palpable. CENTRAL NERVOUS SYSTEM: No focal deficits. LABORATORY DATA: The patient's blood work will be repeated. TSH and free T4 is reordered because the prior test is not consistent with hypothyroidism. ASSESSMENT AND PLAN: She has low TSH which is indicating either the patient is getting excessive medications or the patient had to be withdrawn from Synthroid at this time. The patient is clinically improving. Medically, the patient is stable. She has some gastritis, for which she gets medications and she also has underlying diagnosis of lupus, for which she is on Plaquenil 200 mg daily. We will follow up. Primitivo Toro MD STEVEN
--- NOTE | 2017-10-02 10:13 | PN ---
DATE: 10/02/17 LOCATION: The patient is in Behavioral Care Unit, [facility] in [place], room 516, bed 1. SUBJECTIVE: The patient is seen this morning. She is sleeping. She has no complaints. PHYSICAL EXAMINATION VITAL SIGNS: The patient's pulse is 98, blood pressure 118/74, respirations are 20, O2 sat is 98% on room air, temperature 98.4. LUNGS: Clear. HEART: Normal sinus rhythm. ABDOMEN: Soft. Liver and spleen not palpable. CENTRAL NERVOUS SYSTEM: No focal deficits. ASSESSMENT AND PLAN: The patient has history of depression, suicidal tendency, hypothyroidism, asthma. The patient also has a history of systemic lupus erythematosus. She is on Plaquenil 200 mg daily. The patient gets medications for gastritis; Synthroid 25 mcg, but TSH is low, which suggest the patient has overactive thyroid. Because of the medication, we will have to hold the medicine and continue current management. Primitivo Toro MD STEVEN
--- NOTE | 2017-10-02 14:53 | PCM.PYCHPN ---
Psychiatric Progress Note - Psychiatric Progress Note Patient seen today, length of contact: 30min Patient Chief Complaint: "I feel foggy, I cannot express myself" Problems Identified/Issues Discussed: Suicide/ homicide prevention, past psychiatric h/o, current psychiatric symptoms , medical problems, risk/benefits and alternatives of medications, medications compliance, coping strategies, substance abuse h/o, relapse prevention, importance of follow up with psychiatrist and therapist, discharge plan. Medical Problems: SLE (x25 years), MDD/ALICE, PTSD, endometriosis, pituitary adenoma s/p transsphenoidal resection, and trigeminal neuralgia s/p stereotactic radiosurgery History of hospitalization for hallucinations secondary to stimulant-induced psychosis about a year ago and [facility] as per mother Reagan Diagnostic Results: 09/27/17 12:30 09/27/17 12:30 Lab Results 09/28/17 07:10: Fasting Glucose 91, Triglycerides 144, Cholesterol 160, LDL Cholesterol Direct 75, HDL Cholesterol 43 09/28/17 07:10: RPR Nonreactive 09/28/17 07:10: TSH 3rd Generation 0.13 L 09/27/17 20:49: POC Glucose (mg/dL) 80 09/27/17 15:30: Stool Occult Blood Negative 09/27/17 14:00: Giardia Antigen Not detected 09/27/17 14:00: Stool Leukocytes, Qual Negative 09/27/17 14:00: Urine Opiates Screen Negative, Urine Methadone Screen Negative, Ur Barbiturates Screen Negative, Ur Phencyclidine Scrn Negative, Ur Amphetamines Screen Positive H, U Benzodiazepines Scrn Negative, U Oth Cocaine Metabols Negative, U Cannabinoids Screen Negative 09/27/17 14:00: Stl Cryptosporidium Ag Not detected, Cryptosp/Giardia Source Stool 09/27/17 12:30: Free T4 1.22 09/27/17 12:30: TSH 3rd Generation 0.17 L 09/27/17 12:30: pO2 69 H, VBG pH 7.29 L, VBG pCO2 55.0, VBG HCO3 26.4, VBG Total CO2 28.1 H, VBG O2 Sat (Calc) 95.0 H, VBG Base Excess -1.1 L, VBG Potassium 3.4 L, Sodium 138.0, Chloride 107.0, Glucose 125 H, Lactate 0.9, FiO2 21.0, Venous Blood Potassium 3.4 L 09/27/17 12:30: Sodium 140, Chloride 105, Potassium 3.5 L, Carbon Dioxide 25, Anion Gap 13, BUN 13, Creatinine 1.1, Est GFR ( Amer) > 60, Est GFR (Non- Af Amer) 54, Random Glucose 123 H, Calcium 8.7, Total Bilirubin < 0.1 L, AST 23 , ALT 35, Alkaline Phosphatase 91, Total Protein 6.9, Albumin 4.0, Globulin 2.9 , Albumin/Globulin Ratio 1.4, Lipase 112 09/27/17 12:30: PT 10.5, INR 0.91 L, APTT 38.7 H 09/27/17 12:30: WBC 10.6, RBC 4.17, Hgb 11.8 L, Hct 36.8, MCV 88.2, MCH 28.3, MCHC 32.1, RDW 15.3 H, Plt Count 371, MPV 8.2, Gran % 70.8 H, Lymph % (Auto) 19.6 L, [place] % (Auto) 4.5, Eos % (Auto) 4.3, Baso % (Auto) 0.8, Gran # 7.49 H, Lymph # (Auto) 2.1, [place] # (Auto) 0.5, Eos # (Auto) 0.5, Baso # (Auto) 0.08, ESR 18 09/27/17 12:00: Urine Color Yellow, Urine Appearance Clear, Urine pH 6.5, Ur Specific [place] 1.020, Urine Protein Negative, Urine Glucose (UA) Negative, Urine Ketones Negative, Urine Blood Negative, Urine Nitrate Negative, Urine Bilirubin Negative, Urine Urobilinogen 0.2, Ur Leukocyte Esterase Trace H, Urine RBC 0 - 2, Urine WBC 2 - 5, Ur Epithelial Cells 6 - 8, Amorphous Sediment Few, Urine Bacteria Many, Urine Other Fiber Vital Signs Temp Pulse Resp BP Pulse Ox 09/29/17 06:49 98.4 F 103 H 20 117/76 09/28/17 16:00 98 H 146/87 09/28/17 07:32 97.7 F 94 H 20 130/77 09/27/17 21:00 16 09/27/17 19:09 72 16 122/78 99 09/27/17 17:30 76 16 130/77 98 09/27/17 15:27 79 18 128/69 99 09/27/17 13:00 89 18 131/74 99 09/27/17 11:20 99 H 18 135/79 99 09/27/17 10:39 98.5 F 117 H 16 139/86 97 DSM 5 Symptoms Update: shortly, patient's 47 year old female, reported history of major depressive disorder as well as generalized anxiety disorder, PTSD, patient also has multiple medical issues including Lupus endometriosis, pituitary adenomas/p transsphenoidal resection (15 years ago), and trigeminal neuralgia s/p stereotactic radiosurgery, 1 previous psychiatric admission about a year ago at [facility] for psychosis, patient currently under care of of Dr. Orlando Baeza in the community, patient brought herself to the hospital complaining of parasites live insight her nose and pt took pictures and videos of her stool to show the parasites in the ED, pt had course of the steroids about a week ago prior, pt was compliant with medications, but obviously failed outpatient treatment, patient requires further evaluation and stabilization into the psychiatric inpatient unit, education titration. Patient was seen today at the treatment team meeting, pt was groomed, patient presented to be older than her chronological age, acceptable personal hygiene, good ADLs. patient complained that she feels "shaky, my brain is foggy, I have difficulties to express myself". Patient is convinced that she needs to be resumed on stimulants, this movie writer explained that albuterol could give psychotic symptoms, patient verbalized understanding, this movie writer offered to start Wellbutrin for mood symptoms as well as to help patient was a concentration and memory, patient denied any psychotic symptoms but patient was guarded. Last [place] patient mother approached this movie writer and expressed her highest concerned about patient misusing and abusing stimulants, patient mother reported that patient has two episodes or psychotic breaks of being on stimulants. patient still presented to be disorganized, difficult to stay focused and concentrate, patient denied any psychotic symptoms but obviously guarded and paranoid. patient tolerates medications well, no side effects observed or reported, aims 0 , no EPS. Patient complains of dizziness and vertigo, neurology consult was called. DSM 5 Diagnosis: rule out psychosis due to general medical condition patient has low post, was on steroids Rule out substance and medication induced psychosis, patient was on stimulants rule out major depressive disorder with psychosis rule out generalized anxiety disorder and panic disorder Medication Change: Yes (risperdal increased, wellbutrin started, ) Medical Record Reviewed: Yes Consults ordered or reviewed: medical consult was called correction to my previous note, not urology but Neurology consult was called and appreciated EEG and MRI with contrast ordered, will f/u Mental Status Examination - Cognitive Function Orientation: Person, Place, Situation Memory: Intact Attention: WNL Concentration: Poor Association: Loose Fund of Knowledge: WNL - Mood Mood: Depressed ( "okay, better than before"), Anxious - Affect Affect: Constricted, Blunted, Flat - Formal Thought Process Formal Thought Process: Hallucinations (denied all weekend), Delusions (not elicited today), Paranoia - Suicidal Ideation Suicidal Ideation: No - Homicidal Ideation Homicidal Ideation: No Goal/Treatment Plan - Goal/Treatment Plan Need for Continued Stay: Remain at risks for inpatient hospitalization, Severe depression anxiety, Discharge may exacerbated symptoms, Severe functional impairment Progress Toward Problem(s) and Goals/Treatment Plan: Milieu/structure/supportive therapy SW consultation for discharge plan and social issues Med management amphetamine discontinued Risperdal 0,5 mg t the morning time and 0.5 mg at the nighttime for psychosis Zoloft 50 mg daily for depression and anxiety and panic disorder we'll continue with Ativan 1 mg 3 a dayfor anxiety Neurology consult appreciated, We'll follow up with an variety as well as EEG results We will call medical consultation Family involvement Follow up on labs Will monitor closely Pt was educated about risk/benefits and alternatives of medications, coping strategies (safety plan, suicide prevention), relapse prevention, importance of follow up with psychiatrist and therapist, stay away from drugs/alcohol/smoking family meeting on this October 04 Estimated Date of D/C: 10/05/17
[2017-10-02] MEDS ORDERED: Gadodiamide 287 MG/ML VIAL (15ML) IV ONE (16:07)
--- NOTE | 2017-10-02 17:12 | MRI ---
PROCEDURE: MRI BRAIN WITH AND WITHOUT CONTRAST HISTORY: abnormal sensory exam COMPARISON: None. TECHNIQUE: Multiplanar, multisequence MR images of the brain were obtained with and without intravenous contrast enhancement. 15 mL Omniscan was injected intravenously. FINDINGS: HEMORRHAGE: None DWI: No evidence of an acute or early subacute infarction. BRAIN PARENCHYMA: There are scattered T2/FLAIR hyperintense foci in the subcortical supratentorial white matter. There is no mass, mass effect or abnormal extra-axial fluid collection. Status post transsphenoidal resection of pituitary macroadenoma. The pituitary gland is normal in size with homogeneous enhancement. There is a partially empty sella. ENHANCEMENT: No abnormal intracranial enhancement. VENTRICLES: The ventricles are normal in size, shape and configuration. CRANIUM: There is normal bone marrow signal pattern. ORBITS: Grossly unremarkable. PARANASAL SINUSES/MASTOIDS: Clear VASCULAR SYSTEM: Skull base flow voids intact. OTHER FINDINGS: None . IMPRESSION: 1. No acute intracranial abnormality. 2. Status post trans-sphenoidal resection of pituitary macroadenoma, no evidence of recurrence. 3. Mild supratentorial white matter changes are strictly nonspecific, the differential considerations include migraine headache effect, gliosis, early chronic microangiopathic changes, Lyme disease, vasculitis and demyelinating disease including multiple sclerosis. Clinical correlation and follow-up is advised. .
--- NOTE | 2017-10-03 13:03 | PN ---
DATE: 10/03/17 LOCATION: The patient is in [facility], Behavioral Care Unit. SUBJECTIVE: She was admitted with depression. Patient has underlying history of asthma, hypothyroidism, systemic lupus erythematosus. Patient also has history of gastritis. Patient is improving gradually. OBJECTIVE: VITAL SIGNS: The patient's pulse is 104, blood pressure 124/70, respirations are 20, the patient's O2 sat is 100% on room air. LUNGS: Clear. HEART: Normal sinus rhythm. ABDOMEN: Soft. Liver and spleen not palpable. CENTRAL NERVOUS SYSTEM: No focal deficits. LABORATORY DATA: The patient's lab work, the hemoglobin is 11.8. Chemistry: The patient's TSH is 0.13, which is low and T4 is also low at 0.93. ASSESSMENT AND PLAN: The patient's condition is stable medically. We will continue current management and followup. Primitivo Toro MD MTDD
--- NOTE | 2017-10-03 13:44 | PCM.PYCHPN ---
Psychiatric Progress Note - Psychiatric Progress Note Patient seen today, length of contact: 30min Patient Chief Complaint: "I feel better, I can concentrate now" Problems Identified/Issues Discussed: Suicide/ homicide prevention, past psychiatric h/o, current psychiatric symptoms , medical problems, risk/benefits and alternatives of medications, medications compliance, coping strategies, substance abuse h/o, relapse prevention, importance of follow up with psychiatrist and therapist, discharge plan. Medical Problems: SLE (x25 years), MDD/ALICE, PTSD, endometriosis, pituitary adenoma s/p transsphenoidal resection, and trigeminal neuralgia s/p stereotactic radiosurgery History of hospitalization for hallucinations secondary to stimulant-induced psychosis about a year ago and [facility] as per mother Reagan [phone] Diagnostic Results: 09/27/17 12:30 09/27/17 12:30 Lab Results 09/28/17 07:10: Fasting Glucose 91, Triglycerides 144, Cholesterol 160, LDL Cholesterol Direct 75, HDL Cholesterol 43 09/28/17 07:10: RPR Nonreactive 09/28/17 07:10: TSH 3rd Generation 0.13 L 09/27/17 20:49: POC Glucose (mg/dL) 80 09/27/17 15:30: Stool Occult Blood Negative 09/27/17 14:00: Giardia Antigen Not detected 09/27/17 14:00: Stool Leukocytes, Qual Negative 09/27/17 14:00: Urine Opiates Screen Negative, Urine Methadone Screen Negative, Ur Barbiturates Screen Negative, Ur Phencyclidine Scrn Negative, Ur Amphetamines Screen Positive H, U Benzodiazepines Scrn Negative, U Oth Cocaine Metabols Negative, U Cannabinoids Screen Negative 09/27/17 14:00: Stl Cryptosporidium Ag Not detected, Cryptosp/Giardia Source Stool 09/27/17 12:30: Free T4 1.22 09/27/17 12:30: TSH 3rd Generation 0.17 L 09/27/17 12:30: pO2 69 H, VBG pH 7.29 L, VBG pCO2 55.0, VBG HCO3 26.4, VBG Total CO2 28.1 H, VBG O2 Sat (Calc) 95.0 H, VBG Base Excess -1.1 L, VBG Potassium 3.4 L, Sodium 138.0, Chloride 107.0, Glucose 125 H, Lactate 0.9, FiO2 21.0, Venous Blood Potassium 3.4 L 09/27/17 12:30: Sodium 140, Chloride 105, Potassium 3.5 L, Carbon Dioxide 25, Anion Gap 13, BUN 13, Creatinine 1.1, Est GFR ( Amer) > 60, Est GFR (Non- Af Amer) 54, Random Glucose 123 H, Calcium 8.7, Total Bilirubin < 0.1 L, AST 23 , ALT 35, Alkaline Phosphatase 91, Total Protein 6.9, Albumin 4.0, Globulin 2.9 , Albumin/Globulin Ratio 1.4, Lipase 112 09/27/17 12:30: PT 10.5, INR 0.91 L, APTT 38.7 H 09/27/17 12:30: WBC 10.6, RBC 4.17, Hgb 11.8 L, Hct 36.8, MCV 88.2, MCH 28.3, MCHC 32.1, RDW 15.3 H, Plt Count 371, MPV 8.2, Gran % 70.8 H, Lymph % (Auto) 19.6 L, [place] % (Auto) 4.5, Eos % (Auto) 4.3, Baso % (Auto) 0.8, Gran # 7.49 H, Lymph # (Auto) 2.1, [place] # (Auto) 0.5, Eos # (Auto) 0.5, Baso # (Auto) 0.08, ESR 18 09/27/17 12:00: Urine Color Yellow, Urine Appearance Clear, Urine pH 6.5, Ur Specific [place] 1.020, Urine Protein Negative, Urine Glucose (UA) Negative, Urine Ketones Negative, Urine Blood Negative, Urine Nitrate Negative, Urine Bilirubin Negative, Urine Urobilinogen 0.2, Ur Leukocyte Esterase Trace H, Urine RBC 0 - 2, Urine WBC 2 - 5, Ur Epithelial Cells 6 - 8, Amorphous Sediment Few, Urine Bacteria Many, Urine Other Fiber Vital Signs Temp Pulse Resp BP Pulse Ox 09/29/17 06:49 98.4 F 103 H 20 117/76 09/28/17 16:00 98 H 146/87 09/28/17 07:32 97.7 F 94 H 20 130/77 09/27/17 21:00 16 09/27/17 19:09 72 16 122/78 99 04/18/18 17:30 76 16 130/77 98 09/27/17 15:27 79 18 128/69 99 09/27/17 13:00 89 18 131/74 99 09/27/17 11:20 99 H 18 135/79 99 09/27/17 10:39 98.5 F 117 H 16 139/86 97 MRI October 02, 2017. 1.no acute intracranial abnormality. 2. Status post trans-sphenoidal resection of pituitary microadenoma, no evidence of recurrence. 3. Mild supratentorial white matter changes are strictly nonspecific, the differential consideration include migraine headache affect, gliosis, early chronic microangiographic changes, Lyme disease, vasculitis and demyelinating disease including multiple sclerosis. Clinical correlation and follow up is advised. EEG done and no results yet DSM 5 Symptoms Update: shortly, patient's 47 year old female, reported history of major depressive disorder as well as generalized anxiety disorder, PTSD, patient also has multiple medical issues including Lupus endometriosis, pituitary adenomas/p transsphenoidal resection (15 years ago), and trigeminal neuralgia s/p stereotactic radiosurgery, 1 previous psychiatric admission about a year ago at [facility] for psychosis, patient currently under care of of Dr. Orlando Baeza in the community, patient brought herself to the hospital complaining of parasites live insight her nose and pt took pictures and videos of her stool to show the parasites in the ED, pt had course of the steroids about a week ago prior, pt was compliant with medications, but obviously failed outpatient treatment, patient requires further evaluation and stabilization into the psychiatric inpatient unit, education titration. Patient was seen today together with SW and medical student. pt said that she likes Wellbutrin "I can think straight, I can express myself better". pt denied any psychotic symptoms. pt's mother expressed her concerns about stimulants what pt was on and pt had psychotic symptoms as a result. pt was educated about risk of psychotic symptoms on stimulants, pt verbalized understanding, pt express no desire to be on stimulants any longer, family meeting scheduled for tomorrow. pt said she sleeps better, denied thoughts of harming self or others. patient tolerates medications well, no side effects observed or reported, aims 0 , no EPS. Patient complains of dizziness and vertigo, neurology consult was called. DSM 5 Diagnosis: rule out psychosis due to general medical condition patient has low post, was on steroids Rule out substance and medication induced psychosis, patient was on stimulants rule out major depressive disorder with psychosis rule out generalized anxiety disorder and panic disorder Medication Change: Yes (risperdal increased, wellbutrin started yesterday) Medical Record Reviewed: Yes Consults ordered or reviewed: medical consult was called correction to my previous note, not urology but Neurology consult was called and appreciated EEG and MRI with contrast ordered, will f/u Mental Status Examination - Cognitive Function Orientation: Person, Place, Situation Memory: Intact Attention: WNL Concentration: Poor (some improvements) Association: Loose (some improvement) Fund of Knowledge: WNL - Mood Mood: Depressed ("I feel better"), Anxious - Affect Affect: Constricted, Blunted, Flat - Formal Thought Process Formal Thought Process: Hallucinations (denied all weekend), Delusions (not elicited today), Paranoia - Suicidal Ideation Suicidal Ideation: No - Homicidal Ideation Homicidal Ideation: No Goal/Treatment Plan - Goal/Treatment Plan Need for Continued Stay: Remain at risks for inpatient hospitalization, Severe depression anxiety, Discharge may exacerbated symptoms, Severe functional impairment Progress Toward Problem(s) and Goals/Treatment Plan: Milieu/structure/supportive therapy SW consultation for discharge plan and social issues Med management amphetamine discontinued Risperdal 0,5 mg t the morning time and 0.5 mg at the nighttime for psychosis Zoloft 50 mg daily for depression and anxiety and panic disorder we'll continue with Ativan 1 mg 3 a dayfor anxiety wellbutrin 75mg po bid Neurology consult appreciated, We'll follow up with an variety as well as EEG results We will call medical consultation Family involvement Follow up on labs Will monitor closely Pt was educated about risk/benefits and alternatives of medications, coping strategies (safety plan, suicide prevention), relapse prevention, importance of follow up with psychiatrist and therapist, stay away from drugs/alcohol/smoking family meeting on this October 04 Estimated Date of D/C: 10/05/17
[2017-10-04 07:15] VITALS: BP 130/81; PULSE 89; TEMP 97.8
--- NOTE | 2017-10-05 09:14 | EEG ---
DATE: Technical Information: Electrodes were placed according to the 10-20 [employer] electrode system by research technologist. Total of 23 electrodes (21 EEG and 2 EKG) were placed. EEG activity was digitally recorded referentially to P1/P2 or A1/A2 electrodes. Continuous monitoring with EEG was performed using digital analysis for spike detection. The [employer] spike and seizure detection algorithms were used for digital EEG analysis throughout the monitoring period to screen the EEG in real-time and jamal the data file with pointers to electrographic seizures and interictal discharges. EEG was screened for electrographic seizures and interictal discharges by a technologist. Physician, epileptologist reviewed detections as well as extensive random samples and whole EEG study in detail. Digital EEG Analysis: Was carried out including FFT (Fast Fourier Transform), R2D2 (Rhythmicity Run Detection and Display), Relative Asymmetry Spectrogram, and voltage plot by the [employer]. The qualitative EEG analysis and the voltage plot mapping were used for detection of foci of paroxysmal and abnormal electrical cortical activity. General Description: Background Rhythm: There is a well-formed, 8-10 Hz posterior dominant rhythm that is reactive, symmetric, and attenuates with eye opening. There was a normal amount of frontal beta noted bilaterally. There is no sleep recorded. Activation Procedures: Photic stimulation: There is no driving noted. Hyperventilation: There is slowing noted that is self-remitted. Abnormal Activity: There are no focal epileptiform discharges noted. No clinical or subclinical seizures noted. Impression: This is a normal awake and drowsy EEG. Clinical correlation is required. Sesar Austin MD
--- NOTE | 2017-10-05 12:26 | PCM.PYCHDC ---
Mental Status Examination - Mental Status Examination Orientation: Person, Place, Situation, Time Memory: Intact Mood: Neutral Affect: Constricted (but reactive and mood congruent) Speech: Appropriate Attention: WNL Concentration: WNL Association: WNL Fund of Knowledge: WNL Formal Thought Process: No Impairment Description of patient's judgement and insight: Pt has improved insight into mental and medical illness, pt was compliant with medications and unit rules and regulations, pt was going to groups, was calm, cooperative, socially appropriate, no behavioral incidents, no agitation, no aggression. Psychotic Thoughts and Behaviors: Pt denied v/a/t hallucinations, denied paranoid ideations, pt does not appear to be psychotic, and thought process is goal directed. Suicidal Ideation: No Current Homicidal Ideation?: No Plan: pt adamantly denied thoughts of harming self or others denied intent or plan. Discharge Summary - Discharge Note Reason for Hospitalization: patient was admitted to the psychiatric inpatient unit for evaluation and stabilization of psychosis, inability to function, disorganized thoughts and disorganized behavior. Psychiatric History (includes Medical, Family, Personal Hx): see HPI Laboratory Data: 09/27/17 12:30 10/01/17 10:20 Lab Results 10/01/17 10:20: Free T4 0.93, TSH 3rd Generation 0.13 L 10/01/17 10:20: Sodium 143, Chloride 104, Potassium 3.8, Carbon Dioxide 28, Anion Gap 15, BUN 19, Creatinine 0.8, Est GFR ( Amer) > 60, Est GFR (Non- Af Amer) > 60, Random Glucose 115 H, Calcium 9.5 09/28/17 07:10: Fasting Glucose 91, Triglycerides 144, Cholesterol 160, LDL Cholesterol Direct 75, HDL Cholesterol 43 09/28/17 07:10: RPR Nonreactive 09/28/17 07:10: TSH 3rd Generation 0.13 L 09/27/17 20:49: POC Glucose (mg/dL) 80 09/27/17 15:30: Stool Occult Blood Negative 09/27/17 14:00: Giardia Antigen Not detected 09/27/17 14:00: Stool Leukocytes, Qual Negative 09/27/17 14:00: Urine Opiates Screen Negative, Urine Methadone Screen Negative, Ur Barbiturates Screen Negative, Ur Phencyclidine Scrn Negative, Ur Amphetamines Screen Positive H, U Benzodiazepines Scrn Negative, U Oth Cocaine Metabols Negative, U Cannabinoids Screen Negative 09/27/17 14:00: Stl Cryptosporidium Ag Not detected, Cryptosp/Giardia Source Stool 09/27/17 12:30: Free T4 1.22 09/27/17 12:30: TSH 3rd Generation 0.17 L 09/27/17 12:30: pO2 69 H, VBG pH 7.29 L, VBG pCO2 55.0, VBG HCO3 26.4, VBG Total CO2 28.1 H, VBG O2 Sat (Calc) 95.0 H, VBG Base Excess -1.1 L, VBG Potassium 3.4 L, Sodium 138.0, Chloride 107.0, Glucose 125 H, Lactate 0.9, FiO2 21.0, Venous Blood Potassium 3.4 L 09/27/17 12:30: Sodium 140, Chloride 105, Potassium 3.5 L, Carbon Dioxide 25, Anion Gap 13, BUN 13, Creatinine 1.1, Est GFR ( Amer) > 60, Est GFR (Non- Af Amer) 54, Random Glucose 123 H, Calcium 8.7, Total Bilirubin < 0.1 L, AST 23 , ALT 35, Alkaline Phosphatase 91, Total Protein 6.9, Albumin 4.0, Globulin 2.9 , Albumin/Globulin Ratio 1.4, Lipase 112 09/27/17 12:30: PT 10.5, INR 0.91 L, APTT 38.7 H 09/27/17 12:30: WBC 10.6, RBC 4.17, Hgb 11.8 L, Hct 36.8, MCV 88.2, MCH 28.3, MCHC 32.1, RDW 15.3 H, Plt Count 371, MPV 8.2, Gran % 70.8 H, Lymph % (Auto) 19.6 L, Jenkins % (Auto) 4.5, Eos % (Auto) 4.3, Baso % (Auto) 0.8, Gran # 7.49 H, Lymph # (Auto) 2.1, Jenkins # (Auto) 0.5, Eos # (Auto) 0.5, Baso # (Auto) 0.08, ESR 18 09/27/17 12:00: Urine Color Yellow, Urine Appearance Clear, Urine pH 6.5, Ur Specific [place] 1.020, Urine Protein Negative, Urine Glucose (UA) Negative, Urine Ketones Negative, Urine Blood Negative, Urine Nitrate Negative, Urine Bilirubin Negative, Urine Urobilinogen 0.2, Ur Leukocyte Esterase Trace H, Urine RBC 0 - 2, Urine WBC 2 - 5, Ur Epithelial Cells 6 - 8, Amorphous Sediment Few, Urine Bacteria Many, Urine Other Fiber Vital Signs Temp Pulse Resp BP Pulse Ox 10/04/17 07:15 97.8 F 89 20 130/81 10/03/17 16:32 96 H 120/72 10/03/17 06:59 97.9 F 104 H 20 124/70 10/02/17 16:00 105 H 156/96 H 10/02/17 07:28 98.4 F 98 H 20 118/74 10/01/17 15:00 101 H 130/87 10/01/17 07:45 98.5 F 77 20 131/84 09/30/17 07:11 97.7 F 107 H 20 124/80 09/29/17 16:00 86 136/78 09/29/17 06:49 98.4 F 103 H 20 117/76 09/28/17 16:00 98 H 146/87 09/28/17 07:32 97.7 F 94 H 20 130/77 09/27/17 21:00 16 09/27/17 19:09 72 16 122/78 99 09/27/17 17:30 76 16 130/77 98 09/27/17 15:27 79 18 128/69 99 09/27/17 13:00 89 18 131/74 99 09/27/17 11:20 99 H 18 135/79 99 09/27/17 10:39 98.5 F 117 H 16 139/86 97 MRI of the brain showed old changes and no new findings EEG was normal Consultations:: List each consultation separately and include: 1. Reason for request. 2. Findings. 3. Follow-up Consultations: medical consult was called Neurology consult was called and appreciated EEG and MRI with contrast ordered, see results Summary of Hospital Course include:: 1. Description of specific treatment plan utilized for patients during their course of treatmen. 2. Summarize the time- course for resolution of acute symptoms and/or regressed behaviors. 3. Describe issues identified and worked on during hospitalization. 4. Describe medication utilized. 5. Describe medical problems identified and treated. 6. Reassessment of suicide risk Summary of Hospital Course: shortly, patient's 47 year old female, reported history of major depressive disorder as well as generalized anxiety disorder, PTSD, patient also has multiple medical issues including Lupus endometriosis, pituitary adenomas/p transsphenoidal resection, and trigeminal neuralgia s/p stereotactic radiosurgery, 1 previous psychiatric admission about a year ago at [facility] for psychosis, patient currently under care of of Dr. Orlando Baeza in the community, patient brought herself to the hospital complaining of parasites live insight her nose and pt took pictures and videos of her stool to show the parasites in the ED, pt had course of the steroids about a week ago prior, pt was compliant with medications, but obviously failed outpatient treatment, patient requires further evaluation and stabilization into the psychiatric inpatient unit, evaluation and medications titration. Patient was seen initially at the treatment team meeting, patient looked older than her chronological age, acceptable personal hygiene, good ADLs. Patient presented with disorganized thoughts and behavior, patient was fixated on the part sides which are leaving in her nose, as well as in her stool. Patient reported that now she feels little better compared a year ago when she required to be admitted to the psychiatric inpatient unit a [facility], patient said "then I was feeling parasites are all over my body", patient said that back then she was treated with steroids as well. patient reported that one week ago she was treated with steroids, shortly after she started to have hallucinations. Patient reported that she was feeling depressed, hopeless, helpless, but denied thoughts of harming herself or others. Patient denied hearing voices, denied seeing things, but obviously presented to be guarded, paranoid, as well as psychotic. Patient denied history of being abused, denied any flashbacks and nightmares in the past. patient denied using drugs, denied smoking, denied alcohol consumption. No manic symptoms elicited. patient reported that she feels anxious, reported that she is staying home most of the times, patient feels on ease in the social situation, panic attacks more frequent. Past psychiatric history: As described are mentioned above 1 previous psychiatric admission about a year ago with the same presentation a [facility]. Patient reported that she is seeing Dr. Gurjit Rai (psychiatrist ) in the community. patient also was on stimulants by . Amphetamines. 40mg daily. medical history: Patient has significant medical history for pituitary adenoma, status post resection, trigeminal neuralgia, endometriosis, Lupus, hypothyroidism, sinusitis family history: Patient denied, but as per emergency room evaluation, family has strong history of substance abuse which was confirmed during this hospitalization. pt's sister of overdose of heroin about two years ago, mother has h/o substance abuse. 09/27/17 12:30 09/27/17 12:30 Lab Results 09/28/17 07:10: Fasting Glucose 91, Triglycerides 144, Cholesterol 160, LDL Cholesterol Direct 75, HDL Cholesterol 43 09/28/17 07:10: TSH 3rd Generation 0.13 L 09/27/17 20:49: POC Glucose (mg/dL) 80 09/27/17 15:30: Stool Occult Blood Negative 09/27/17 14:00: Urine Opiates Screen Negative, Urine Methadone Screen Negative, Ur Barbiturates Screen Negative, Ur Phencyclidine Scrn Negative, Ur Amphetamines Screen Positive H, U Benzodiazepines Scrn Negative, U Oth Cocaine Metabols Negative, U Cannabinoids Screen Negative 09/27/17 12:30: Free T4 1.22 09/27/17 12:30: TSH 3rd Generation 0.17 L 09/27/17 12:30: pO2 69 H, VBG pH 7.29 L, VBG pCO2 55.0, VBG HCO3 26.4, VBG Total CO2 28.1 H, VBG O2 Sat (Calc) 95.0 H, VBG Base Excess -1.1 L, VBG Potassium 3.4 L, Sodium 138.0, Chloride 107.0, Glucose 125 H, Lactate 0.9, FiO2 21.0, Venous Blood Potassium 3.4 L 09/27/17 12:30: Sodium 140, Chloride 105, Potassium 3.5 L, Carbon Dioxide 25, Anion Gap 13, BUN 13, Creatinine 1.1, Est GFR ( Amer) > 60, Est GFR (Non- Af Amer) 54, Random Glucose 123 H, Calcium 8.7, Total Bilirubin < 0.1 L, AST 23 , ALT 35, Alkaline Phosphatase 91, Total Protein 6.9, Albumin 4.0, Globulin 2.9 , Albumin/Globulin Ratio 1.4, Lipase 112 09/27/17 12:30: PT 10.5, INR 0.91 L, APTT 38.7 H 04/18/18 12:30: WBC 10.6, RBC 4.17, Hgb 11.8 L, Hct 36.8, MCV 88.2, MCH 28.3, MCHC 32.1, RDW 15.3 H, Plt Count 371, MPV 8.2, Gran % 70.8 H, Lymph % (Auto) 19.6 L, Jenkins % (Auto) 4.5, Eos % (Auto) 4.3, Baso % (Auto) 0.8, Gran # 7.49 H, Lymph # (Auto) 2.1, Jenkins # (Auto) 0.5, Eos # (Auto) 0.5, Baso # (Auto) 0.08, ESR 18 09/27/17 12:00: Urine Color Yellow, Urine Appearance Clear, Urine pH 6.5, Ur Specific [place] 1.020, Urine Protein Negative, Urine Glucose (UA) Negative, Urine Ketones Negative, Urine Blood Negative, Urine Nitrate Negative, Urine Bilirubin Negative, Urine Urobilinogen 0.2, Ur Leukocyte Esterase Trace H, Urine RBC 0 - 2, Urine WBC 2 - 5, Ur Epithelial Cells 6 - 8, Amorphous Sediment Few, Urine Bacteria Many, Urine Other Fiber Vital Signs Temp Pulse Resp BP Pulse Ox 09/28/17 07:32 97.7 F 94 H 20 130/77 09/27/17 21:00 16 09/27/17 19:09 72 16 122/78 99 09/27/17 17:30 76 16 130/77 98 09/27/17 15:27 79 18 128/69 99 09/27/17 13:00 89 18 131/74 99 09/27/17 11:20 99 H 18 135/79 99 09/27/17 10:39 98.5 F 117 H 16 139/86 97 patient pharmacy was called Patient was on Lexapro 20 mg daily Amphetamine 30 mg daily Klonopin 0.5 mg 3 times a day daily alternating with Ativan 1 mg 3 times Patient reported that she was doing well on Zoloft which she wants to be continued on, we will discontinue Lexapro as well as amphetamines, Ativan will be continued 1 mg 3 times a day, medical consult will be called,Risperdal 0.25 mg twice a day for psychosis will be started. Patient was in agreement with the treatment plan. 09/27/17 12:30 09/27/17 12:30 Lab Results 09/28/17 07:10: Fasting Glucose 91, Triglycerides 144, Cholesterol 160, LDL Cholesterol Direct 75, HDL Cholesterol 43 09/28/17 07:10: TSH 3rd Generation 0.13 L 09/27/17 20:49: POC Glucose (mg/dL) 80 09/27/17 15:30: Stool Occult Blood Negative 09/27/17 14:00: Urine Opiates Screen Negative, Urine Methadone Screen Negative, Ur Barbiturates Screen Negative, Ur Phencyclidine Scrn Negative, Ur Amphetamines Screen Positive H, U Benzodiazepines Scrn Negative, U Oth Cocaine Metabols Negative, U Cannabinoids Screen Negative 09/27/17 12:30: Free T4 1.22 09/27/17 12:30: TSH 3rd Generation 0.17 L 09/27/17 12:30: pO2 69 H, VBG pH 7.29 L, VBG pCO2 55.0, VBG HCO3 26.4, VBG Total CO2 28.1 H, VBG O2 Sat (Calc) 95.0 H, VBG Base Excess -1.1 L, VBG Potassium 3.4 L, Sodium 138.0, Chloride 107.0, Glucose 125 H, Lactate 0.9, FiO2 21.0, Venous Blood Potassium 3.4 L 09/27/17 12:30: Sodium 140, Chloride 105, Potassium 3.5 L, Carbon Dioxide 25, Anion Gap 13, BUN 13, Creatinine 1.1, Est GFR ( Amer) > 60, Est GFR (Non- Af Amer) 54, Random Glucose 123 H, Calcium 8.7, Total Bilirubin < 0.1 L, AST 23 , ALT 35, Alkaline Phosphatase 91, Total Protein 6.9, Albumin 4.0, Globulin 2.9 , Albumin/Globulin Ratio 1.4, Lipase 112 09/27/17 12:30: PT 10.5, INR 0.91 L, APTT 38.7 H 09/27/17 12:30: WBC 10.6, RBC 4.17, Hgb 11.8 L, Hct 36.8, MCV 88.2, MCH 28.3, MCHC 32.1, RDW 15.3 H, Plt Count 371, MPV 8.2, Gran % 70.8 H, Lymph % (Auto) 19.6 L, Jenkins % (Auto) 4.5, Eos % (Auto) 4.3, Baso % (Auto) 0.8, Gran # 7.49 H, Lymph # (Auto) 2.1, Jenkins # (Auto) 0.5, Eos # (Auto) 0.5, Baso # (Auto) 0.08, ESR 18 09/27/17 12:00: Urine Color Yellow, Urine Appearance Clear, Urine pH 6.5, Ur Specific [place] 1.020, Urine Protein Negative, Urine Glucose (UA) Negative, Urine Ketones Negative, Urine Blood Negative, Urine Nitrate Negative, Urine Bilirubin Negative, Urine Urobilinogen 0.2, Ur Leukocyte Esterase Trace H, Urine RBC 0 - 2, Urine WBC 2 - 5, Ur Epithelial Cells 6 - 8, Amorphous Sediment Few, Urine Bacteria Many, Urine Other Fiber Vital Signs Temp Pulse Resp BP Pulse Ox 09/28/17 07:32 97.7 F 94 H 20 130/77 09/27/17 21:00 16 09/27/17 19:09 72 16 122/78 99 09/27/17 17:30 76 16 130/77 98 09/27/17 15:27 79 18 128/69 99 09/27/17 13:00 89 18 131/74 99 09/27/17 11:20 99 H 18 135/79 99 09/27/17 10:39 98.5 F 117 H 16 139/86 97 over the course of this hospitalization patient was stabilized on the following medications: Risperdal 0.5 mg twice a day which was slowly titrated, for psychotic symptoms and most ability stabilization Zoloft 50 mg daily for depression and anxiety Sonata 5 mg daily at the nighttime for insomnia Ativan 1 mg 3 times a day was continued for anxiety Stimulants discontinued Wellbutrin extended release 150 mg a day for ADHD as well as for depressive symptoms Patient was tolerating medications well, no side effects observed or reported, aims 0, no EPS. based on the history and presentation patient most likely has delirium due to multiple reasons, patient was on stimulants, as per mother collateral information patient was taking extra amphetamines Priscilla, patient was sleep deprived, medically mueller she was not doing well. patient was seen by neurology team as well as medical team please see consultation also more detailed information. family meeting took place on 10/04/2017 prior to discharge (pt's mother, SW, pt and this senior grant writer participate, see SW note for more detailed information), diagnosis, treatment plan, discharge planning was discussed in details Patient mother as well as patient herself for educated about medications, avoidance of stimulants, no EMDR procedure recommended, patient was advised to take medication as prescribed, patient was in agreement to follow up with outpatient psychiatrist, patient was educated about the importance to have schedule sleep, be responsible and provide appropriate history to the next provider such as psychotic symptoms on stimulants, patient agreed.Discharge took more than 35 minutes. pt's mother was appreciative. Over the course of this hospitalization pt was attending groups, pt also had medication management, had therapeutic milieu. Overall pt improved significantly, pt's affect became brighter, pt was less depressed, has realistic future oriented plans pt has trip scheduled this month to [place], pt also does not appear to be psychotic, or anxious, pt was socially appropriate, no behavioral issues, pts insight improved as well and soon pt deemed to be ready for discharge. At the time of the discharge pt denied been depressed, denied thoughts of harming self or others, denied psychotic symptoms, and pt does not appeared to be psychotic, denied been anxious, pt is not in imminent danger to self or others, will be following up at 's office, information about follow up appointment, time and address provided to the pt, it is patient responsibility to follow up with outpatient clinic, PMD as well as specialists (see SW note for more detailed information). In case pt will need to obtain results of studies pending at discharge pt was provided with contact information of Psychiatric Inpatient unit [phone] as well as Medical Record Department [phone]. pt was provided with prescriptions for all of medications (please see medication reconciliation form) Pt was educated about safety plan in case of worsening of symptoms or in case of suicidal or homicidal ideation call 911 or go to the nearest ER, also was educated to take meds as prescribed and stay away from drugs, pt verbalized understanding. - Diagnosis (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 Priority: High (2) Generalized anxiety disorder Status: Chronic Priority: Medium - Final Diagnosis (DSM 5) Condition upon Discharge: GOOD Disposition: HOME/ ROUTINE Follow-up Treatment Plan: At the time of the discharge pt denied been depressed, denied thoughts of harming self or others, denied psychotic symptoms, and pt does not appeared to be psychotic, denied been anxious, pt is not in imminent danger to self or others, will be following up at 's office, information about follow up appointment, time and address provided to the pt, it is patient responsibility to follow up with outpatient clinic, PMD as well as specialists (see SW note for more detailed information). In case pt will need to obtain results of studies pending at discharge pt was provided with contact information of Psychiatric Inpatient unit [phone] as well as Medical Record Department [phone]. pt was provided with prescriptions for all of medications (please see medication reconciliation form) Pt was educated about safety plan in case of worsening of symptoms or in case of suicidal or homicidal ideation call 911 or go to the nearest ER, also was educated to take meds as prescribed and stay away from drugs, pt verbalized understanding. Prescriptions/Medication Reconciliation: buPROPion XL [Wellbutrin] 150 mg PO 14 #14 t24 Gabapentin [Neurontin] 300 mg PO TID #45 cap LORazepam [Ativan] 1 mg PO TID #45 tab risperiDONE [RisperDAL Tab] 0.5 mg PO AMHS #30 tab Sertraline [Zoloft] 50 mg PO DAILY #14 tab Zaleplon [Sonata] 5 mg PO HS PRN #14 cap PRN Reason: Insomnia - Smoking Cessation Smoking Cessation Medication prescribed: No Reason for not providing: denies smoking - Antipsychotic Medications Pt discharged on 2 or more routine antipsychotic medications: No
== END 2017-10-04 13:14 | disposition home or self-care (01) | DRG 881 ==
LOC: ED 10:29 → ERH 18:36 → PSYC 20:21
PROVIDERS: ADMIT Psychiatry & Neurology Psychiatry; ATTEND Psychiatry & Neurology Psychiatry
DX: F32.9 Major depressive disorder, single episode, unspecified (principal); F41.1 Generalized anxiety disorder; M32.9 Systemic lupus erythematosus, unspecified; E03.9 Hypothyroidism, unspecified; G50.0 Trigeminal neuralgia; J32.9 Chronic sinusitis, unspecified; N80.9 Endometriosis, unspecified; F43.10 Post-traumatic stress disorder, unspecified; J45.20 Mild intermittent asthma, uncomplicated; K29.70 Gastritis, unspecified, without bleeding; Z88.2 Allergy status to sulfonamides; Z88.0 Allergy status to penicillin; Z91.040 Latex allergy status

== ENCOUNTER 2017-12-06 11:27 | Inpatient (IN) | payer MEDICARE, OTHER ==
--- NOTE | 2017-12-06 12:10 | ED PDOC ---
Arrival/HPI - General Chief Complaint: Dizziness/Lightheaded Time Seen by Provider: 12/06/17 11:29 Historian: Patient, Family - History of Present Illness Narrative History of Present Illness (Text): you were treated in the ED today for hx of lupus, PTSD, MDD, Anxiety, Pituitary adenomas s/p transphenoid resection, trigeminal neuralgia, now here with mom who states seeing larvae, dizziness, and generalized body swelling but otherwise without any nausea/vomiting/headache/dizziness/difficulty breathing/ chest pain/abdomen pain/numbness/tingling/loss of limb function/pain with urination/thoughts to harm self or others or hallucinations. 12/06/17 12:15 Time/Duration: 24 hours Symptom Onset: Gradual Symptom Course: Unchanged Quality: Other (no pain) Activities at Onset: Rest Context: Sitting Past Medical History - Provider Review Nursing Documentation Reviewed: Yes - Travel History Have you recently traveled outside [place] w/in the past 3 mons?: No - Infectious Disease Hx of Infectious Diseases: None - Tetanus Immunization Tetanus Immunization: Unknown - Reproductive Menopause: No - Cardiac Hx Cardiac Disorders: No Hx Hypertension: Yes - Pulmonary Hx Respiratory Disorders: No - Neurological Hx Dizziness: Yes Hx Vertigo: Yes Other/Comment: FIBROMYALGIA, LUPUS - HEENT Hx HEENT Disorder: Yes - Renal Hx Renal Disorder: No - Endocrine/Metabolic Hx Endocrine Disorders: Yes Hx Hypothyroidism: Yes Hx Systemic Lupus Erythematosus: Yes - Hematological/Oncological Hx Blood Disorders: Yes Other/Comment: LUPUS - Integumentary Hx Dermatological Disorder: No - Musculoskeletal/Rheumatological Hx Musculoskeletal Disorders: No Hx Rheumatoid Arthritis: Yes - Gastrointestinal Hx Gastrointestinal Disorders: Yes - Genitourinary/Gynecological Hx Genitourinary Disorders: Yes Other/Comment: PELVIC SURGERY - Psychiatric Hx Psychophysiologic Disorder: Yes Hx Depression: Yes Hx Post Traumatic Stress Disorder: Yes Hx Substance Use: No - Surgical History Other/Comment: PELVIC, LAPAROSCOPY - Anesthesia Hx Anesthesia: Yes Hx Anesthesia Reactions: No Hx Malignant Hyperthermia: No Family/Social History - Physician Review Nursing Documentation Reviewed: Yes Family/Social History: No Known Family HX Smoking Status: Never Smoked Hx Alcohol Use: Yes (Previously) Hx Substance Use: No Allergies/Home Meds Allergies/Adverse Reactions: Allergies citalopram Allergy (Mild, Verified 12/06/17 12:05) RASH latex Allergy (Verified 12/06/17 12:04) RASH metronidazole [From Flagyl] Allergy (Verified 12/06/17 12:04) RASH Penicillins Allergy (Verified 12/06/17 12:04) ANGIOEDEMA Sulfa (Sulfonamide Antibiotics) Allergy (Verified 12/06/17 12:04) ANGIOEDEMA cephalexin [From Keflex] Adverse Reaction (Verified 12/06/17 12:04) DIZZINESS Home Medications: Home Meds Medication Instructions Recorded Confirmed Furosemide [Lasix] 10 mg PO PRN PRN 09/27/17 09/27/17 Lactobacil 2-S.thermo-Bifido 1 1 cap PO DAILY 09/27/17 09/27/17 [Vsl#3 Capsule] Levothyroxine [Synthroid] 0.025 mg PO DAILY 09/27/17 12/06/17 Ubidecarenone [Coq-10] 1 cap PO DAILY 09/27/17 12/06/17 Vitamin D3/Vitamin K2 (Mk4) [K2 1 tab PO DAILY 09/27/17 12/06/17 Plus D3 Tablet] Alprazolam [Xanax] 12/06/17 Dextroamphetamine/Amphetamine 20 mg PO BID 12/06/17 12/06/17 [Adderall 20 mg Tablet] Hydroxychloroquine Sulfate 12/06/17 [Plaquenil] Review of Systems - Review of Systems Constitutional: Normal Eyes: Normal ENT: Normal Respiratory: Normal Cardiovascular: Normal Gastrointestinal: Normal Genitourinary Female: Normal Musculoskeletal: Normal Skin: Normal Neurological: Normal Endocrine: Normal Hemo/Lymphatic: Normal Psychiatric: Normal, Other (seeing larvae). absent: Anxiety, Depression, Suicidal Ideation Physical Exam Vital Signs Reviewed: Yes Vital Signs Temp Pulse Resp BP Pulse Ox 12/06/17 20:33 97.9 F 97 H 22 127/81 97 12/06/17 15:01 97.4 F L 82 19 139/83 98 12/06/17 12:30 91 H 18 136/81 98 12/06/17 11:48 97.6 F 98 H 18 158/95 H 98 12/06/17 11:39 97.4 F L 99 H 18 140/94 H 97 Temperature: Afebrile Blood Pressure: Hypertensive Pulse: Regular Respiratory Rate: Normal Appearance: Positive for: Well-Appearing, Non-Toxic, Comfortable Pain Distress: None Mental Status: Positive for: Alert and Oriented X 3 - Systems Exam Head: Present: Atraumatic, Normocephalic Pupils: Present: PERRL Extroacular Muscles: Present: EOMI Conjunctiva: Present: Normal Ears: Present: Normal Mouth: Present: Moist Mucous Membranes Pharnyx: Present: Normal Nose (External): Present: Atraumatic Nose (Internal): Present: Normal Inspection Neck: Present: Normal Range of Motion Respiratory/Chest: Present: Clear to Auscultation, Good Air Exchange Cardiovascular: Present: Regular Rate and Rhythm Abdomen: No: Tenderness, Distention, Normal Bowel Sounds, Peritoneal Signs, Rebound, Guarding, McBurney's Point Tender, Rovsing's Sign Present, Hernias, Feeding Tubes, Ostomy Tubes, Mass/Organomegaly, Scars, Other Back: Present: Normal Inspection Upper Extremity: Present: Normal Inspection Lower Extremity: Present: Normal Inspection Neurological: Present: GCS=15, CN II-XII Intact, Speech Normal, Motor Func Grossly Intact Skin: Present: Warm, Other (generalized swelling) Medical Decision Making ED Course and Treatment: you were treated in the ED today for hx of lupus, PTSD, MDD, Anxiety, Pituitary adenomas s/p transphenoid resection, trigeminal neuralgia, now here with mom who states seeing larvae, dizziness, and generalized body swelling but otherwise without any nausea/vomiting/headache/dizziness/difficulty breathing/ chest pain/abdomen pain/numbness/tingling/loss of limb function/pain with urination/thoughts to harm self or others or hallucinations. You were otherwise breathing easily, talking with mom easily, good strength/sensation, clear lungs , no abdomen tenderness, skin no erythema/fluctuance/crepitus, no nasal lesions and airway is patent in nasal and oral area, no spinal or costal tenderness or redness, no fever temp 97.4, stable heart rate 99, stable breathing rate 18, excellent oxygen level 97% room air, elevated blood pressure 140/94 which we recommend repeat in 2-3 days primary care office to determine further treatment , you have blood tests no infection count 8, stable blood level hemoglobin 11/ platelets 389, stable chemistry, heart blood test negative less than 0.01, alcohol/tylenol/aspirin negative, urine drug test positive amphetamines and benzodiazapines, urine test trace leukocytes, urine test negative, radiology ct head no acute intracranial, chest xray no acute findings, ct abdomen/pelvis findings discussed with patient to ensure followup primary care physician and corresponding specialists to ensure no complications/cancer development, ECG sinus tachycardia, tylenol, meclizine, pepcid, observation done in the ED with improvement and medically cleared. d/w PES stated put on 1-to-1 and plan [facility] evaluation for psychosis. 12/06/17 17:36 12/06/2017 17:[address] IMPRESSION: No acute intracranial abnormality. Incompletely imaged and characterized soft tissue mass in the right pterygopalatine fossa. Patient has history of right temporal craniotomy. Comparison with prior imaging studies would be helpful to assess this finding. If clinically indicated, dedicated MRI of the brain with skullbase protocol without and with intravenous contrast is recommended for definitive characterization. Dictator: Eloisa Pruett MD 12/06/2017 17:36 Abd/Pelvis CT IMPRESSION: 1. Small non-obstructing stones in both kidneys, the largest on the left measures 3 mm. 2. Apparent mild mural thickening of the bladder wall is nonspecific and could be related to underdistention however cystitis cannot be excluded. Please correlate with urine analysis. 3. Small sliding hiatal hernia. Apparent mild mural thickening in the distal esophagus and stomach is normal specific and could be related to under- distention however nonspecific esophagitis/gastritis cannot be excluded. If clinically indicated, correlation with EGD may be performed. Dictator: Eloisa Pruett MD 12/06/2017 17:59 Chest X-ray IMPRESSION: No active disease. Dictator: Eloisa Pruett MD d/w Dr. Allen regarding CT head findings and he recommended ENT thus I spoke to Dr. Cotto who stated patient can have an outpatient MRI and ENT clinic evaluation for Incompletely imaged and characterized soft tissue mass in the right pterygopalatine fossa. 12/06/17 18:12 12/06/17 18:33 12/06/17 20:27 mental health re-evaluation around 1120pm. 12/06/17 22:[address] Goel to fu mental health re-evaluation and disposition. Reassessment Condition: Re-examined, Unchanged - Lab Interpretations Lab Results: 12/06/17 12:04 12/06/17 12:45 Lab Results 12/06/17 12:45: Alcohol, Quantitative < 10 12/06/17 12:45: Salicylates 5, Acetaminophen < 10.0 L 12/06/17 12:45: Sodium 143, Potassium 4.0, Chloride 103, Carbon Dioxide 30, Anion Gap 13, BUN 15, Creatinine 0.7, Est GFR ( Amer) > 60, Est GFR (Non- Af Amer) > 60, Random Glucose 85, Calcium 9.4, Magnesium 2.1, Total Bilirubin 0.4, AST 27, ALT 26, Alkaline Phosphatase 83, Lactate Dehydrogenase 537, Total Creatine Kinase 170, Troponin I < 0.01, NT-Pro-B Natriuret Pep 66.8, Total Protein 7.1, Albumin 3.7, Globulin 3.4, Albumin/Globulin Ratio 1.1 12/06/17 12:30: Urine Opiates Screen Negative, Urine Methadone Screen Negative, Ur Barbiturates Screen Negative, Ur Phencyclidine Scrn Negative, Ur Amphetamines Screen Positive H, U Benzodiazepines Scrn Positive H, U Oth Cocaine Metabols Negative, U Cannabinoids Screen Negative 12/06/17 12:30: Urine Color Yellow, Urine Appearance Clear, Urine pH 7.0, Ur Specific [place] 1.020, Urine Protein Negative, Urine Glucose (UA) Negative, Urine Ketones Negative, Urine Blood Trace-intact H, Urine Nitrate Negative, Urine Bilirubin Negative, Urine Urobilinogen 0.2, Ur Leukocyte Esterase Small H , Urine RBC 2 - 5, Urine WBC 5 - 10, Ur Epithelial Cells 6 - 8, Urine Bacteria Large, Urine Other Uyeast 12/06/17 12:05: PT 11.1, INR 0.97, APTT 31.7 12/06/17 12:04: WBC 8.1 D, RBC 3.90, Hgb 11.3 L, Hct 34.4 L, MCV 88.2, MCH 29.0 , MCHC 32.8, RDW 13.7, Plt Count 389, MPV 8.2, Gran % 60.6, Lymph % (Auto) 26.3 , [place] % (Auto) 5.3, Eos % (Auto) 6.8 H, Baso % (Auto) 1.0, Gran # 4.87, Lymph # (Auto) 2.1, [place] # (Auto) 0.4, Eos # (Auto) 0.6, Baso # (Auto) 0.08 I have reviewed the lab results: Yes - RAD Interpretation Radiology Orders: 12/06/17 13:08 HEAD W/O CONTRAST [CT] Stat CHEST TWO VIEWS (PA/LAT) [RAD] Stat 12/06/17 13:21 ABDOMEN & PELVIS [ABD PELVIS PO & IV CONTRAST] [CT] Stat Swimming Pool Installer And Servicer: ED Physician (cxr no acute), Radiologist (ct head/ap mdm) - EKG Interpretation Interpreted by ED Physician: Yes (sinus tachycardia) - Medication Orders Current Medication Orders: Discontinued Medications Acetaminophen (Tylenol 325mg Tab) 975 mg PO STAT STA Stop: 12/06/17 13:09 Last Admin: 12/06/17 13:13 Dose: Not Given Non-Admin Reason: Patient Refused MAR Pain/Vitals Document 12/06/17 13:13 EAR (Rec: 12/06/17 13:13 EAR [id number]) Pain Reassessment Is This A Pain ReAssessment? Yes Acetaminophen (Tylenol 325mg Tab) 650 mg PO STAT STA Stop: 12/06/17 20:48 Meclizine HCl (Antivert) 50 mg PO STAT STA Stop: 12/06/17 14:52 Last Admin: 12/06/17 15:24 Dose: 50 mg Nitrofurantoin Macrocrystals (Macrobid) 100 mg PO STAT STA PRN Reason: Protocol Stop: 12/06/17 13:20 Last Admin: 12/06/17 13:44 Dose: 100 mg Disposition/Present on Arrival - Present on Arrival Any Indicators Present on Arrival: No History of DVT/PE: No History of Uncontrolled Diabetes: No Urinary Catheter: No History of Decub. Ulcer: No History Surgical Site Infection Following: None - Disposition Have Diagnosis and Disposition been Completed?: Yes Diagnosis: Psychosis Disposition Time: 22:26 Patient Plan: Transfer To (Dr. Goel to [facility] and disposition) Patient Problems: Current Active Problems Problem Status Onset Psychosis Acute Condition: STABLE Referrals: Jimy Phillips MD [Primary Care Provider] - Follow up with primary Forms: [email or web address] ([place])
[2017-12-06 12:37] LABS: BASO # 0.08 K/mm3 (0.0-2.0); EOS # 0.6 (0.0-0.7); EOS % 6.8 % (1.5-5.0); GRAN # 4.87 (1.4-6.5); GRAN % 60.6 % (50.0-68.0); HEMOGLOBIN 11.3 g/dL (12.0-16.0); LYMPH # 2.1 (1.2-3.4); LYMPH % 26.3 % (22.0-35.0); MEAN CELL VOLUME 88.2 fl (80.0-105.0); MEAN CORPUSCULAR HGB CONC 32.8 g/dl (31.0-37.0); MEAN PLATELET VOLUME 8.2 fl (7.0-11.0); MONO # 0.4 (0.1-0.6); MONO % 5.3 % (1.0-6.0); RBC 3.9 10^6/uL (3.5-6.1); RED CELL DISTRIBUTION WIDTH 13.7 % (11.5-14.5); WHITE BLOOD COUNT 8.1 10^3/ul (4.5-11.0)
[2017-12-06 12:52] LABS: INR 0.97 (0.93-1.08); PARTIAL THROMBOPLASTIN TIME 31.7 Seconds (25.1-36.5); PROTHROMBIN TIME 11.1 SECONDS (9.4-12.5)
[2017-12-06 12:54] LABS: ALB/GLOB RATIO 1.1 (1.1-1.8); ALBUMIN 3.7 g/dL (3.0-4.8); ALT/SGPT 26 U/L (7-56); AST/SGOT 27 U/L (14-36); BLOOD UREA NITROGEN 15 mg/dL (7-21); CALCIUM 9.4 mg/dL (8.4-10.5); GFR AFRICAN-AMERICAN > 60; GFR NON-AFRICAN AMERICAN > 60
[2017-12-06 12:56] LABS: ACETAMINOPHEN < 10.0 ug/ml (10.0-20.0); SALICYLATE 5 mg/dL (2.0-20.0)
[2017-12-06 13:12] LABS: B-TYPE NATRIURETIC PEPTIDE 66.8 pg/mL (0-450); TROPONIN I < 0.01 ng/mL
[2017-12-06 13:15] LABS: URINE APPEARANCE CLEAR (CLEAR); URINE BILIRUBIN NEGATIVE (NEGATIVE); URINE BLOOD TRACE-INTACT (NEGATIVE); URINE COLOR YELLOW (YELLOW); URINE GLUCOSE (UA) NEGATIVE (NEGATIVE); URINE LEUKOCYTE ESTERASE SMALL Leu/uL (NEGATIVE); URINE PROTEIN NEGATIVE mg/dL (<30 mg/dL); URINE UROBILINOGEN 0.2 E.U./dL (<1 E.U./dL)
[2017-12-06 13:19] LABS: URINE BACTERIA LARGE (NEG)
[2017-12-06 13:37] LABS: BARBITURATES, UR NEGATIVE (NEGATIVE); BENZODIAZEPINES, UR POSITIVE (NEGATIVE); OPIATES, UR NEGATIVE (NEGATIVE); PHENCYCLIDINE, UR NEGATIVE (NEGATIVE)
[2017-12-06] MEDS: Iohexol 240 (50 ml) ONE (14:00)
[2017-12-06] MEDS ORDERED: Iohexol 350 MG/100 ML VIAL ONE (14:55)
--- NOTE | 2017-12-06 17:21 | CT ---
PROCEDURE: CT HEAD WITHOUT CONTRAST. HISTORY: 47yoF, dizziness COMPARISON: None available. TECHNIQUE: Axial computed tomography images were obtained through the head/brain without intravenous contrast. Radiation dose: Total exam DLP = 828.84 mGy-cm. This CT exam was performed using one or more of the following dose reduction techniques: Automated exposure control, adjustment of the mA and/or kV according to patient size, and/or use of iterative reconstruction technique. FINDINGS: HEMORRHAGE: No intracranial hemorrhage. BRAIN: Robles-white matter differentiation is preserved. There is no mass, mass effect or abnormal extra-axial fluid collection. There is no territorial infarction. VENTRICLES: The ventricles are normal in size, shape and configuration. CALVARIUM: There is right temporal craniotomy. Incompletely imaged is a soft tissue mass in the right pterygopalatine fossa with scalloping of the posterior wall of the right maxilla. PARANASAL SINUSES: Unremarkable as visualized. No significant inflammatory changes. MASTOID AIR CELLS: Predominantly clear. OTHER FINDINGS: None. IMPRESSION: No acute intracranial abnormality. Incompletely imaged and characterized soft tissue mass in the right pterygopalatine fossa. Patient has history of right temporal craniotomy Comparison with prior imaging studies would be helpful to assess this finding. If clinically indicated, dedicated MRI of the brain with skullbase protocol without and with intravenous contrast is recommended for definitive characterization.
--- NOTE | 2017-12-06 17:38 | CT ---
PROCEDURE: CT Abdomen and Pelvis with contrast HISTORY: 47yoF, with posterior kidney pain COMPARISON: 09/27/2017. TECHNIQUE: CT scan of the abdomen and pelvis was performed after administration of intravenous contrast. Oral contrast was not administered. Coronal and sagittal reformatted images were obtained. Contrast dose: 100 cc Omnipaque 350 Radiation dose: Total exam DLP = 1530.61 mGy-cm. This CT exam was performed using one or more of the following dose reduction techniques: Automated exposure control, adjustment of the mA and/or kV according to patient size, and/or use of iterative reconstruction technique. FINDINGS: LOWER THORAX: There is discoid atelectasis/ scarring in the right middle lobe. There is dependent atelectasis in the lung bases. LIVER: There is mild hepatomegaly. No gross lesion or ductal dilatation. GALLBLADDER AND BILE DUCTS: Surgically absent. Mild dilatation of the common bile duct is in keeping with postcholecystectomy status. PANCREAS: Normal in size with homogeneous enhancement. No gross lesion or ductal dilatation. SPLEEN: Normal in size and appearance. ADRENALS: No discrete nodule. KIDNEYS AND URETERS: Normal in size with homogeneous enhancement. There are small nonobstructing stones in the both kidneys, the largest in the left lower pole measures 3 mm. No hydronephrosis. VASCULATURE: No aortic aneurysm. BOWEL: The small bowel loops are normal in caliber. There is sigmoid diverticulosis without CT evidence for acute diverticulitis. APPENDIX: Normal appendix. PERITONEUM: No free fluid. No free air. LYMPH NODES: There are small lymph nodes in the right lower quadrant, likely reactive. BLADDER: The urinary bladder is well distended and there is mild mural thickening without intraluminal stone. REPRODUCTIVE: Unremarkable. BONES: No acute fracture. OTHER FINDINGS: There is a small sliding hiatal hernia. There is apparent mild mural thickening in the distal esophagus and stomach. IMPRESSION: 1. Small nonobstructing stones in both kidneys, the largest on the left measures 3 mm. 2. Apparent mild mural thickening of the bladder wall is nonspecific and could be related to underdistention however cystitis cannot be excluded. Please correlate with urine analysis. 3. Small sliding hiatal hernia. Apparent mild mural thickening in the distal esophagus and stomach is normal specific and could be related to underdistention however nonspecific esophagitis/gastritis cannot be excluded. If clinically indicated, correlation with EGD may be performed.
--- NOTE | 2017-12-06 18:22 | CARD ---
APPROVED REPORT EKG Measurement Heart [id number] <Conclusion> Sinus tachycardia Possible Left atrial enlargement Incomplete right bundle branch block Cannot rule out Anterior infarct, age undetermined Abnormal ECG
--- NOTE | 2017-12-06 22:35 | ED PDOC ---
Physical Exam Vital Signs Temp Pulse Resp BP Pulse Ox 12/06/17 22:57 98 F 92 H 22 121/81 98 12/06/17 20:33 97.9 F 97 H 22 127/81 97 12/06/17 15:01 97.4 F L 82 19 139/83 98 12/06/17 12:30 91 H 18 136/81 98 12/06/17 11:48 97.6 F 98 H 18 158/95 H 98 12/06/17 11:39 97.4 F L 99 H 18 140/94 H 97 Medical Decision Making ED Course and Treatment: 12/06/17 22:30 Case endorsed to me by Dr. Hale,medically cleared as per pending PES re-assesment and disposition. 12/07/17 00:16 Pt re-evaluated by PES screenmarisol Plasencia, who discussed case with psychiatrist senior operations manager. Pt will be admitted to Behavioral [facility] for psychosis under Dr. Guillermo's service. Pt agreeable with plan. - Lab Interpretations Lab Results: 12/06/17 12:04 12/06/17 12:45 Lab Results 12/06/17 12:45: Alcohol, Quantitative < 10 12/06/17 12:45: Salicylates 5, Acetaminophen < 10.0 L 12/06/17 12:45: Sodium 143, Potassium 4.0, Chloride 103, Carbon Dioxide 30, Anion Gap 13, BUN 15, Creatinine 0.7, Est GFR ( Amer) > 60, Est GFR (Non- Af Amer) > 60, Random Glucose 85, Calcium 9.4, Magnesium 2.1, Total Bilirubin 0.4, AST 27, ALT 26, Alkaline Phosphatase 83, Lactate Dehydrogenase 537, Total Creatine Kinase 170, Troponin I < 0.01, NT-Pro-B Natriuret Pep 66.8, Total Protein 7.1, Albumin 3.7, Globulin 3.4, Albumin/Globulin Ratio 1.1 12/06/17 12:30: Urine Opiates Screen Negative, Urine Methadone Screen Negative, Ur Barbiturates Screen Negative, Ur Phencyclidine Scrn Negative, Ur Amphetamines Screen Positive H, U Benzodiazepines Scrn Positive H, U Oth Cocaine Metabols Negative, U Cannabinoids Screen Negative 12/06/17 12:30: Urine Color Yellow, Urine Appearance Clear, Urine pH 7.0, Ur Specific [place] 1.020, Urine Protein Negative, Urine Glucose (UA) Negative, Urine Ketones Negative, Urine Blood Trace-intact H, Urine Nitrate Negative, Urine Bilirubin Negative, Urine Urobilinogen 0.2, Ur Leukocyte Esterase Small H , Urine RBC 2 - 5, Urine WBC 5 - 10, Ur Epithelial Cells 6 - 8, Urine Bacteria Large, Urine Other Uyeast 12/06/17 12:05: PT 11.1, INR 0.97, APTT 31.7 12/06/17 12:04: WBC 8.1 D, RBC 3.90, Hgb 11.3 L, Hct 34.4 L, MCV 88.2, MCH 29.0 , MCHC 32.8, RDW 13.7, Plt Count 389, MPV 8.2, Gran % 60.6, Lymph % (Auto) 26.3 , [place] % (Auto) 5.3, Eos % (Auto) 6.8 H, Baso % (Auto) 1.0, Gran # 4.87, Lymph # (Auto) 2.1, [place] # (Auto) 0.4, Eos # (Auto) 0.6, Baso # (Auto) 0.08 - RAD Interpretation Radiology Orders: 12/06/17 13:08 HEAD W/O CONTRAST [CT] Stat CHEST TWO VIEWS (PA/LAT) [RAD] Stat 12/06/17 13:21 ABDOMEN & PELVIS [ABD PELVIS PO & IV CONTRAST] [CT] Stat - Medication Orders Current Medication Orders: Discontinued Medications Acetaminophen (Tylenol 325mg Tab) 975 mg PO STAT STA Stop: 12/06/17 13:09 Last Admin: 12/06/17 13:13 Dose: Not Given Non-Admin Reason: Patient Refused MAR Pain/Vitals Document 12/06/17 13:13 EAR (Rec: 12/06/17 13:13 EAR [id number]) Pain Reassessment Is This A Pain ReAssessment? Yes Acetaminophen (Tylenol 325mg Tab) 650 mg PO STAT STA Stop: 12/06/17 20:48 Last Admin: 12/06/17 21:00 Dose: Not Given Non-Admin Reason: Patient Asleep MAR Pain/Vitals Document 12/06/17 21:00 RG (Rec: 12/06/17 22:50 RG [id number]) Sleep Is patient sleeping during reassessment? Yes Meclizine HCl (Antivert) 50 mg PO STAT STA Stop: 12/06/17 14:52 Last Admin: 12/06/17 15:24 Dose: 50 mg Nitrofurantoin Macrocrystals (Macrobid) 100 mg PO STAT STA PRN Reason: Protocol Stop: 12/06/17 13:20 Last Admin: 12/06/17 13:44 Dose: 100 mg Disposition/Present on Arrival - Present on Arrival Any Indicators Present on Arrival: No History of DVT/PE: No History of Uncontrolled Diabetes: No Urinary Catheter: No History of Decub. Ulcer: No History Surgical Site Infection Following: None - Disposition Have Diagnosis and Disposition been Completed?: Yes Diagnosis: Psychosis Disposition: HOSPITALIZED Disposition Time: 00:19 Patient Plan: Admission Patient Problems: Current Active Problems Problem Status Onset Psychosis Acute Condition: STABLE Referrals: Jimy Phillips MD [Primary Care Provider] - Follow up with primary Forms: [employer] (German)
[2017-12-07 01:01] VITALS: O2SAT 97
[2017-12-07] MEDS ORDERED: Magnesium Hydroxide Susp 30 ml UD PO PRN (01:37)
[2017-12-07] MEDS ORDERED: Alum-Mag Hydrox-Simethicone Susp (30 mL) PO PRN (01:37)
[2017-12-07 02:45] VITALS: BMI 36.5
--- NOTE | 2017-12-07 04:08 | PCM.BM ---
<Lavon Stauffer - Last Filed: 12/07/17 04:05> Treatment Plan Problems - Problems identified on initial assessmt Delusions Date Initiated: 12/07/17 Time Initiated: :30 Assessment reference: NA Status: Active Priority: 1 Thought process Date Initiated: 12/07/17 Time Initiated: :30 Assessment reference: NA Status: Active Priority: 2 Ineffective coping Date Initiated: 12/07/17 Time Initiated: :30 Assessment reference: NA Status: Active Priority: 3 Treatment assets and liabiliti Patient Assests: cooperative, educated, ADL independent, good support system, negotiates basic needs, cognitively intact Patient Liabilities: medical problems - Milieu Protocol Maintain good personal hygiene: daily Encourage regular showers, daily Remind patient to perform daily oral care, daily Assist patient to perform ADL's Conduct patient checks and document Observation sheet: Q15 minutes Maintain personal safety: every shift Educate patient to report safety concerns to staff, every shift Monitor environment for contraband/sharps Medication safety: Monitor for expected outcome, potential side effects: every shift, Assess barriers to learning: every shift, Assess readiness for medication education: every shift Discharge/Continuing Care - Education Needs Education Needs: Patient Medication, Patient Diagnosis/Disease Process, Patient Coping Skills, Patient Pain - Discharge Discharge Criteria: Tolerates medication w/o severe side effects, Free of paranoid thoughts, Free of agitation, Ability to care for self <Luz Elena Rhodes - Last Filed: 12/07/17 16:42> Family Contact Family involvement: Family/SO is involved Family contact: Patient declines to allow family contact at present - Outside Agency Agency 1 Care involvment: Information-sharing Agency contact name: Dr. 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 Interventions: 12/07/17 16:45 Psychoeducation/psychotherapy Psychopharmacology/adjustment of medications as needed/ monitoring possible side effects Evaluate pt on daily basis Compliance with medications and follow up appointments Long acting medication if pt is noncompliant with pill form Suicide and homicide risk assessment and prevention, coping strategies, safety plan Relapse prevention Reduction of symptoms Improve functional status Possible assertive community treatment Cognitive behavioral therapy Family involvement Possible social skill training as outpatient (2) Generalized anxiety disorder Status: Chronic Interventions: 12/07/17 16:45 Psychoeducation Psychopharmacology/adjustment of medications as needed/ monitoring possible side effects Evaluate pt on daily basis Discussion of importance of being compliant with medications and follow up appointments Suicide and homicide risk assessment and prevention, coping strategies, safety plan Reduction of symptoms Relaxation techniques and breathing exercises Improve functional status Family involvement Cognitive behavioral therapy as outpatient <Dolores Ramos - Last Filed: 12/08/17 11:24>
[2017-12-07 07:31] LABS: HDL CHOLESTEROL 49 mg/dL (29-60)
[2017-12-07 07:44] LABS: LDL CHOLESTEROL 74 mg/dL (0-129)
[2017-12-07] MEDS: Levothyroxine 25 MCG TAB PO SCH (12:51)
--- NOTE | 2017-12-07 16:44 | PCM.PSYCH ---
Initial Psychiatric Evaluation - Initial Psychiatric Evaluation Type of Admission: Voluntary Legal Status: Capacity (Patient has capacity to sign consent for treatment) Chief Complaint (in patient's own words): "I'm not allowing you to call my mother, everything is her fault, she said that they have symptoms, but I have none" Patient's Reaction to Hospitalization: pt was admitted for evaluation and stabilization of psychosis, disorganized thoughts and behavior. History of Present Illness and Precipitating Events: shortly, patient's 47 year old female, reported history of major depressive disorder as well as generalized anxiety disorder, PTSD, pt also had h /o stimulant induced psychosis, patient also has multiple medical issues including Lupus endometriosis, pituitary adenomas/p transsphenoidal resection, and trigeminal neuralgia s/p stereotactic radiosurgery, 2 previous psychiatric admissions one 09/2017 and about a year ago at [facility] for psychosis, patient currently under care of of Dr. Alison Rai in the community, patient brought by her mother because pt had multiple somatic complaints and complaining of parasites live insight her nose and pt took pictures and videos showing obsessively to her mother and others (pt had similar presentation last admission in September), pt was compliant with medications, but obviously failed outpatient treatment, patient requires further evaluation and stabilization into the psychiatric inpatient unit, medication titration. of note patient tried to elope from the emergency room, initially [facility] screening initiated, but patient signed voluntary consent for treatment. pt's pharmacy was called yesterday Jonathan patient was on Lexapro 20 mg twice a day Xanax 2 mg 3 times a day Neurontin 300 mg twice a day Lunesta was prescribed but patient never picked it up This commercial underwriter attempted to speak to the patient today at the morning time, good ADLs, acceptable personal hygiene, patient is laying on her bed, refused to talk , appears to be depressed and angry, patient was blaming her mother for this admission. appeared to be irritable, annoyed, was giving only yes or no answers. as per PES report, pt was psychotic has had feeling that worms in her nose, visual hallucinations (bumps on rodriguez) in the past 3 weeks, mood swings/changes , social isolation, unable to function/get out of bed, bizarre bx. (taking pics all over her body and showing mother), repeatedly states she is sick, pt. is causing self injury to nose due to tactile hallucinations/worms in nose/ believes worms are also on her fingers. Pt under care of psychiatrist Dr. Rai. Pt. was last seen on 11/27/17 and has follow-up appt. on 12/11/17. Pt. has been compliant with psychiatrist, but not w/ psychotherapist. RADHA Baker from [facility] was last seen on 10/30/17 and pt. is suppose to see therapist 1x a week. no detox or rehab in the past. UDS + for amphetamines and benzodiazepines. Hx of stimulant abuse. Stimulant abuse induced psychosis hx. Patient reported that she was feeling depressed, hopeless, helpless, but denied thoughts of harming herself or others. Patient denied hearing voices, denied seeing things, but obviously presented to be guarded, paranoid, as well as psychotic. Patient denied history of being abused, denied any flashbacks and nightmares in the past. patient denied using drugs, denied smoking, denied alcohol consumption. but amphetamines positive in urine No manic symptoms elicited. patient reported that she feels anxious, reported that she is staying home most of the times, patient feels on ease in the social situation, panic attacks more frequent. Past psychiatric history: As described two admissions in the past, [facility] and [facility] with same presentation. medical history: Patient has significant medical history for pituitary adenoma, status post resection, trigeminal neuralgia, endometriosis, Lupus, hypothyroidism, sinusitis family history: Patient denied, but as per emergency room evaluation, family has strong history of substance abuse. 12/06/17 12:04 12/06/17 12:45 Lab Results 12/07/17 07:00: TSH 3rd Generation 0.65 12/07/17 07:00: Triglycerides 123, Cholesterol 158, LDL Cholesterol Direct 74, HDL Cholesterol 49 12/06/17 12:45: Alcohol, Quantitative < 10 12/06/17 12:45: Salicylates 5, Acetaminophen < 10.0 L 12/06/17 12:45: Sodium 143, Potassium 4.0, Chloride 103, Carbon Dioxide 30, Anion Gap 13, BUN 15, Creatinine 0.7, Est GFR ( Amer) > 60, Est GFR (Non- Af Amer) > 60, Random Glucose 85, Calcium 9.4, Magnesium 2.1, Total Bilirubin 0.4, AST 27, ALT 26, Alkaline Phosphatase 83, Lactate Dehydrogenase 537, Total Creatine Kinase 170, Troponin I < 0.01, NT-Pro-B Natriuret Pep 66.8, Total Protein 7.1, Albumin 3.7, Globulin 3.4, Albumin/Globulin Ratio 1.1 12/06/17 12:30: Urine Opiates Screen Negative, Urine Methadone Screen Negative, Ur Barbiturates Screen Negative, Ur Phencyclidine Scrn Negative, Ur Amphetamines Screen Positive H, U Benzodiazepines Scrn Positive H, U Oth Cocaine Metabols Negative, U Cannabinoids Screen Negative 12/06/17 12:30: Urine Color Yellow, Urine Appearance Clear, Urine pH 7.0, Ur Specific [place] 1.020, Urine Protein Negative, Urine Glucose (UA) Negative, Urine Ketones Negative, Urine Blood Trace-intact H, Urine Nitrate Negative, Urine Bilirubin Negative, Urine Urobilinogen 0.2, Ur Leukocyte Esterase Small H , Urine RBC 2 - 5, Urine WBC 5 - 10, Ur Epithelial Cells 6 - 8, Urine Bacteria Large, Urine Other Uyeast 12/06/17 12:05: PT 11.1, INR 0.97, APTT 31.7 12/06/17 12:04: WBC 8.1 D, RBC 3.90, Hgb 11.3 L, Hct 34.4 L, MCV 88.2, MCH 29.0 , MCHC 32.8, RDW 13.7, Plt Count 389, MPV 8.2, Gran % 60.6, Lymph % (Auto) 26.3 , [place] % (Auto) 5.3, Eos % (Auto) 6.8 H, Baso % (Auto) 1.0, Gran # 4.87, Lymph # (Auto) 2.1, [place] # (Auto) 0.4, Eos # (Auto) 0.6, Baso # (Auto) 0.08 Vital Signs Temp Pulse Resp BP Pulse Ox 12/07/17 16:00 83 131/95 H 12/07/17 12:50 134/82 12/07/17 06:53 98.2 F 71 19 134/82 12/07/17 04:00 97.5 F L 85 20 165/111 H 12/07/17 02:17 97.5 F L 12/07/17 01:00 98.4 F 88 18 128/83 97 12/06/17 22:57 98 F 92 H 22 121/81 98 12/06/17 20:33 97.9 F 97 H 22 127/81 97 12/06/17 15:01 97.4 F L 82 19 139/83 98 12/06/17 12:30 91 H 18 136/81 98 12/06/17 11:48 97.6 F 98 H 18 158/95 H 98 12/06/17 11:39 97.4 F L 99 H 18 140/94 H 97 Current Medications: Active Medications Generic Name Dose Route Start Last Admin Trade Name Freq PRN Reason Stop Dose Admin Acetaminophen 650 mg 12/07/17 01:37 12/07/17 12:49 Tylenol 325mg Tab PO 650 mg Q4 PRN Administration Pain, moderate (4-7) Al Hydrox/Mg Hydrox/Simethicone 30 ml 12/07/17 01:37 Maalox Plus 30 Ml PO DAILY PRN Upset Stomach Alprazolam 2 mg 12/07/17 08:00 12/07/17 12:49 Xanax PO 2 mg TID BYRON Administration Protocol Escitalopram Oxalate 20 mg 12/07/17 08:00 12/07/17 08:46 Lexapro PO 20 mg BID BYRON Administration Gabapentin 300 mg 12/07/17 08:00 12/07/17 12:51 Neurontin PO 300 mg TID BYRON Administration Protocol Hydroxychloroquine Sulfate 200 mg 12/07/17 11:30 12/07/17 12:49 Plaquenil PO 200 mg DAILY BYRON Administration Protocol Levothyroxine Sodium 25 mcg 12/07/17 11:30 12/07/17 12:51 Synthroid PO 25 mcg DAILY BYRON Administration Lorazepam 2 mg 12/07/17 01:39 Ativan PO Q6 PRN Agitation Protocol Lorazepam 2 mg 12/07/17 01:39 Ativan IM Q6 PRN Agitation Protocol Magnesium Hydroxide 30 ml 12/07/17 01:37 Milk Of Magnesia PO DAILY PRN Constipation Risperidone 0.5 mg 12/07/17 10:00 12/07/17 09:13 Risperdal Tab PO 0.5 mg AMHS BYRON Administration Protocol Zaleplon 5 mg 12/07/17 02:26 Sonata PO HS PRN Insomnia Ziprasidone 20 mg 12/07/17 01:37 Geodon Cap PO Q6 PRN Agitation Protocol Ziprasidone 20 mg 12/07/17 01:37 Geodon Inj IM Q6 PRN Agitation Protocol Past Psychiatric History - Past Psychiatric History Previous Treatment History: Inpatient Prior Professional Help: see HPI Prior Psychiatric Treatment: see HPI At what hospital: see HPI Duration: see HPI Nature of Treatment: see HPI Explanation of prior treatment: see HPI History of Abuse: see HPI denied History of ETOH/Drug Use: see HPI History of Family Illness: see HPI Pertinent Medical Hx (Current Medical&Sleep Prob, Allergies): Allergies Allergy/AdvReac Type Severity Reaction Status Date / Time citalopram Allergy Mild RASH Verified 12/07/17 02:46 latex Allergy RASH Verified 12/06/17 12:04 metronidazole [From Flagyl] Allergy RASH Verified 12/06/17 12:04 Penicillins Allergy ANGIOEDEMA Verified 12/06/17 12:04 Sulfa (Sulfonamide Allergy ANGIOEDEMA Verified 12/06/17 12:04 Antibiotics) cephalexin [From Keflex] AdvReac DIZZINESS Verified 12/06/17 12:04 Furosemide [Lasix] 10 mg PO PRN PRN 09/27/17 Lactobacil 2-S.thermo-Bifido 1 [Vsl#3 Capsule] 1 cap PO DAILY 09/27/17 Levothyroxine [Synthroid] 0.025 mg PO DAILY 09/27/17 Ubidecarenone [Coq-10] 1 cap PO DAILY 09/27/17 Vitamin D3/Vitamin K2 (Mk4) [K2 Plus D3 Tablet] 1 tab PO DAILY 09/27/17 Gabapentin [Neurontin] 300 mg PO TID #45 cap 10/04/17 Zaleplon [Sonata] 5 mg PO HS PRN #14 cap 10/04/17 Alprazolam [Xanax] 2 mg PO TID 12/06/17 Dextroamphetamine/Amphetamine [Adderall 20 mg Tablet] 20 mg PO BID 12/06/17 Hydroxychloroquine Sulfate [Plaquenil] 1 tab PO DAILY 12/06/17 DSM 5 DX - DSM 5 DSM 5 Diagnosis: psychosis nos r/o stimulant psychosis - Recommended/Plan of Treatment Treatment Recommendations and Plan of Treatment: Milieu/structure/supportive therapy Medical consult will be called SW consultation for discharge plan and social issues Med management, meds resumed, risperdal added Family involvement Follow up on labs Will monitor closely Pt was educated about risk/benefits and alternatives of medications, coping strategies (safety plan, suicide prevention), relapse prevention, importance of follow up with psychiatrist and therapist, stay away from drugs/alcohol/smoking Projected ELOS: 10days Prognosis: guarded Discharge Plan and Discharge Criteria: Pt will be not depressed or manic, will be more hopeful, will be not psychotic or anxious, will be not having thoughts of harming self or others, will be tolerating medications well, will not have major side effects, will be able to function, will not pose threat to self or others. - Smoking Cessation Smoking Cessation Initiated: No Reason for not providing: denied smoking
--- NOTE | 2017-12-07 19:25 | CP.PCM.CON ---
History of Present Illness - History of Present Illness History of Present Illness: 47 year old female with past medical history of lupus, hypothyroidism, endometriosis, major depressive disorder, generalized anxiety disorder, and PTSD who was brought to the Emergency Room by her mother. Apparently, patient was brought into the ER because she was complaining to the mother and the family that there were parasites living in her nose. Patient refused to talk and all history is obtained from the chart. Review of Systems - Review of Systems Systems not reviewed;Unavailable: Uncooperative Past Patient History - Infectious Disease Hx of Infectious Diseases: None - Tetanus Immunizations Tetanus Immunization: Unknown - Past Social History Smoking Status: Never Smoked - CARDIAC Hx Hypertension: Yes - PULMONARY Hx Respiratory Disorders: No - NEUROLOGICAL Hx Dizziness: Yes Hx Vertigo: Yes Other/Comment: FIBROMYALGIA, LUPUS - HEENT Hx HEENT Problems: Yes - RENAL Hx Chronic Kidney Disease: No - ENDOCRINE/METABOLIC Hx Endocrine Disorders: Yes Hx Hypothyroidism: Yes Hx Systemic Lupus Erythematosus: Yes - HEMATOLOGICAL/ONCOLOGICAL Hx Blood Disorders: Yes Other/Comment: LUPUS - INTEGUMENTARY Hx Dermatological Problems: No - MUSCULOSKELETAL/RHEUMATOLOGICAL Hx Rheumatoid Arthritis: Yes - GASTROINTESTINAL Hx Gastrointestinal Disorders: Yes - GENITOURINARY/GYNECOLOGICAL Hx Genitourinary Disorders: Yes Other/Comment: PELVIC SURGERY - PSYCHIATRIC Hx Substance Use: No - SURGICAL HISTORY Other/Comment: PELVIC, LAPAROSCOPY - ANESTHESIA Hx Anesthesia: Yes Meds Allergies/Adverse Reactions: Allergies Allergy/AdvReac Type Severity Reaction Status Date / Time citalopram Allergy Mild RASH Verified 12/07/17 02:46 latex Allergy RASH Verified 12/06/17 12:04 metronidazole [From Flagyl] Allergy RASH Verified 12/06/17 12:04 Penicillins Allergy ANGIOEDEMA Verified 12/06/17 12:04 Sulfa (Sulfonamide Allergy ANGIOEDEMA Verified 12/06/17 12:04 Antibiotics) cephalexin [From Keflex] AdvReac DIZZINESS Verified 12/06/17 12:04 - Medications Medications: Current Medications Acetaminophen (Tylenol 325mg Tab) 650 mg PO Q4 PRN PRN Reason: Pain, moderate (4-7) Last Admin: 12/07/17 12:49 Dose: 650 mg Al Hydrox/Mg Hydrox/Simethicone (Maalox Plus 30 Ml) 30 ml PO DAILY PRN PRN Reason: Upset Stomach Alprazolam (Xanax) 2 mg PO TID BYRON PRN Reason: Protocol Last Admin: 12/07/17 17:15 Dose: 2 mg Escitalopram Oxalate (Lexapro) 20 mg PO BID BYRON Last Admin: 12/07/17 17:15 Dose: 20 mg Gabapentin (Neurontin) 300 mg PO TID BYRON PRN Reason: Protocol Last Admin: 12/07/17 17:22 Dose: 300 mg Hydroxychloroquine Sulfate (Plaquenil) 200 mg PO DAILY BYRON PRN Reason: Protocol Last Admin: 12/07/17 12:49 Dose: 200 mg Levothyroxine Sodium (Synthroid) 25 mcg PO DAILY BYRON Last Admin: 12/07/17 12:51 Dose: 25 mcg Lorazepam (Ativan) 2 mg PO Q6 PRN; Protocol PRN Reason: Agitation Lorazepam (Ativan) 2 mg IM Q6 PRN; Protocol PRN Reason: Agitation Magnesium Hydroxide (Milk Of Magnesia) 30 ml PO DAILY PRN PRN Reason: Constipation Risperidone (Risperdal Tab) 0.5 mg PO AMHS BYRON PRN Reason: Protocol Last Admin: 12/07/17 09:13 Dose: 0.5 mg Zaleplon (Sonata) 5 mg PO HS PRN PRN Reason: Insomnia Ziprasidone (Geodon Cap) 20 mg PO Q6 PRN; Protocol PRN Reason: Agitation Ziprasidone (Geodon Inj) 20 mg IM Q6 PRN; Protocol PRN Reason: Agitation Results - Vital Signs Recent Vital Signs: Last Vital Signs Temp 98.2 F 12/07/17 06:53 Pulse 83 12/07/17 16:00 Resp 19 12/07/17 06:53 BP 131/95 H 12/07/17 16:00 Pulse Ox 97 12/07/17 01:00 - Labs Result Diagrams: 12/06/17 12:04 12/06/17 12:45 Labs: Laboratory Results - last 24 hr 12/07/17 12/07/17 12/07/17 07:00 07:00 07:00 Triglycerides 123 Cholesterol 158 LDL Cholesterol Direct 74 HDL Cholesterol 49 TSH 3rd Generation 0.65 RPR Nonreactive Assessment & Plan - Assessment and Plan (Free Text) Assessment: Psychosis Hypothyroidism UTI Lupus H/O trigeminal neuralgia s/p surgery H/O pituitary adenoma s/p surgery Plan: We will check TSH and free T4. Will start the patient on Cipro. Awaiting results of the urine culture. We will check with the patient tomorrow if she takes plaquenil for the lupus. continue psychiatric evaluation and treatment.
[2017-12-08] MEDS: Levothyroxine 25 MCG TAB PO SCH (08:25)
--- NOTE | 2017-12-08 10:08 | PN ---
DATE: 12/08/2017 LOCATION: The patient is in [facility] in [place] room 513, bed 2, in Behavioral Care Unit. SUBJECTIVE: The patient was admitted with acute psychosis, is complaining of foreign body bugs in her nose. She has multiple complaints of pain in the back. The patient has past history of systemic lupus erythematosus. The patient has history of craniotomy in the right-side zoroastrian area. 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 The patient had surgery through the nose for the pituitary gland. The patient has had treatment for fibromyalgias. The patient has had treatment to remove the gallbladder, cholecystectomy. The patient has only one child, the child is 19 years old. The patient was seen this morning. She seemed to be cooperative, answers questions. PHYSICAL EXAMINATION: VITAL SIGNS: The pulse is 95, blood pressure 115/65, respirations 19, and temperature 98.1. HEENT: The patient's head appears to be normocephalic, cannot see any scar around the right zoroastrian area. NECK: Thyroid is not enlarged, but clinically she has been treated for mild hypothyroidism. LUNGS: Clear. HEART: Normal sinus rhythm. S1 and S2 present. ABDOMEN: Soft. Liver and spleen not palpable. CENTRAL NERVOUS SYSTEM: The patient has no focal neurological deficit, but speech seems to be slurred. LABORATORY DATA: The patient's blood work shows that the hemoglobin is 11.3, patient's eosinophil count is 6.8. She has an allergy. The patient's chemistry shows that blood sugar is 91. All other chemical parameters are within normal range. T4 is 1.03. The patient's cholesterol is 158. MEDICATIONS: At this time, the patient is on Ativan, the patient is on Geodon, Lexapro, gabapentin, Plaquenil, Risperdal, and Sonata. The patient's diet is heart-healthy diet. We will continue thyroid medications and follow up, the patient's blood pressure is stable and the patient's thyroid function studies are within normal range. Primitivo Toro MD [facility] # [id number]
--- NOTE | 2017-12-08 14:15 | PCM.PYCHPN ---
Psychiatric Progress Note - Psychiatric Progress Note Patient seen today, length of contact: 30min Patient Chief Complaint: "I'm not confused, I was very sick that is why Amphetamines were started for me " Problems Identified/Issues Discussed: Suicide/ homicide prevention, past psychiatric h/o, current psychiatric symptoms , medical problems, risk/benefits and alternatives of medications, medications compliance, coping strategies, substance abuse h/o, relapse prevention, importance of follow up with psychiatrist and therapist, discharge plan. Medical Problems: see HPI Diagnostic Results: 12/06/17 12:04 12/06/17 12:45 Lab Results 12/08/17 06:00: Fasting Glucose 91 12/08/17 06:00: 25-OH Vitamin D Total 31.7 12/08/17 06:00: Free T4 1.03 12/07/17 07:00: RPR Nonreactive 12/07/17 07:00: TSH 3rd Generation 0.65 12/07/17 07:00: Triglycerides 123, Cholesterol 158, LDL Cholesterol Direct 74, HDL Cholesterol 49 12/06/17 12:45: Alcohol, Quantitative < 10 12/06/17 12:45: Salicylates 5, Acetaminophen < 10.0 L 12/06/17 12:45: Sodium 143, Potassium 4.0, Chloride 103, Carbon Dioxide 30, Anion Gap 13, BUN 15, Creatinine 0.7, Est GFR ( Amer) > 60, Est GFR (Non- Af Amer) > 60, Random Glucose 85, Calcium 9.4, Magnesium 2.1, Total Bilirubin 0.4, AST 27, ALT 26, Alkaline Phosphatase 83, Lactate Dehydrogenase 537, Total Creatine Kinase 170, Troponin I < 0.01, NT-Pro-B Natriuret Pep 66.8, Total Protein 7.1, Albumin 3.7, Globulin 3.4, Albumin/Globulin Ratio 1.1 12/06/17 12:30: Urine Opiates Screen Negative, Urine Methadone Screen Negative, Ur Barbiturates Screen Negative, Ur Phencyclidine Scrn Negative, Ur Amphetamines Screen Positive H, U Benzodiazepines Scrn Positive H, U Oth Cocaine Metabols Negative, U Cannabinoids Screen Negative 12/06/17 12:30: Urine Color Yellow, Urine Appearance Clear, Urine pH 7.0, Ur Specific [place] 1.020, Urine Protein Negative, Urine Glucose (UA) Negative, Urine Ketones Negative, Urine Blood Trace-intact H, Urine Nitrate Negative, Urine Bilirubin Negative, Urine Urobilinogen 0.2, Ur Leukocyte Esterase Small H , Urine RBC 2 - 5, Urine WBC 5 - 10, Ur Epithelial Cells 6 - 8, Urine Bacteria Large, Urine Other Uyeast 12/06/17 12:05: PT 11.1, INR 0.97, APTT 31.7 12/06/17 12:04: WBC 8.1 D, RBC 3.90, Hgb 11.3 L, Hct 34.4 L, MCV 88.2, MCH 29.0 , MCHC 32.8, RDW 13.7, Plt Count 389, MPV 8.2, Gran % 60.6, Lymph % (Auto) 26.3 , [place] % (Auto) 5.3, Eos % (Auto) 6.8 H, Baso % (Auto) 1.0, Gran # 4.87, Lymph # (Auto) 2.1, [place] # (Auto) 0.4, Eos # (Auto) 0.6, Baso # (Auto) 0.08 Vital Signs Temp Pulse Resp BP Pulse Ox 12/08/17 06:41 98.1 F 95 H 18 115/65 12/07/17 16:00 83 131/95 H 12/07/17 12:50 134/82 12/07/17 06:53 98.2 F 71 19 134/82 12/07/17 04:00 97.5 F L 85 20 165/111 H 12/07/17 02:17 97.5 F L 12/07/17 01:00 98.4 F 88 18 128/83 97 12/06/17 22:57 98 F 92 H 22 121/81 98 12/06/17 20:33 97.9 F 97 H 22 127/81 97 12/06/17 15:01 97.4 F L 82 19 139/83 98 12/06/17 12:30 91 H 18 136/81 98 12/06/17 11:48 97.6 F 98 H 18 158/95 H 98 12/06/17 11:39 97.4 F L 99 H 18 140/94 H 97 DSM 5 Symptoms Update: shortly, patient's 47 year old female, reported history of major depressive disorder as well as generalized anxiety disorder, PTSD, pt also had h /o stimulant induced psychosis, patient also has multiple medical issues including Lupus endometriosis, pituitary adenomas/p transsphenoidal resection, and trigeminal neuralgia s/p stereotactic radiosurgery, 2 previous psychiatric admissions one 09/2017 and about a year ago at for psychosis, patient currently under care of of Dr. Alison Rai in the community, patient brought by her mother because pt had multiple somatic complaints and complaining of parasites live insight her nose and pt took pictures and videos showing obsessively to her mother and others (pt had similar presentation last admission in September), pt was compliant with medications, but obviously failed outpatient treatment, patient requires further evaluation and stabilization into the psychiatric inpatient unit, medication titration. of note patient tried to elope from the emergency room, initially screening initiated, but patient signed voluntary consent for treatment. pt was seen at the treatment team meeting, pt presented to be disorganized, feels that something is wrong with her nose, she feels that her right side of her face is "swollen", pt's face is symmetrical, pt also c/o some invisible "rash". pt said she was feeling "very sick" that is why amphetamines were prescribed by Dr.Paul Rai. pt c/o frequent urinations, PMD was called. pt is drowsy, psychotic, disorganized. Pt tolerates meds well, no side effects observed or reported. AIMS 0, no EPS. pt did not want her mother to be involved, seems to be angry towards her "it is her fault". IMpression:substance induced mood disorder (amphetamines) r/o shcizoaffective Medication Change: Yes (risperdal incrased) Medical Record Reviewed: Yes Consults ordered or reviewed: medical and neurology consults initiated Mental Status Examination - Cognitive Function Orientation: Person, Place, Situation Memory: Intact Attention: Poor Concentration: Poor Association: Loose Fund of Knowledge: WNL - Mood Mood: Depressed, Anxious - Affect Affect: Constricted - Formal Thought Process Formal Thought Process: Hallucinations, Delusions, Paranoia, Loosening of associations, Circumstantial - Suicidal Ideation Suicidal Ideation: No - Homicidal Ideation Homicidal Ideation: No Goal/Treatment Plan - Goal/Treatment Plan Need for Continued Stay: Remain at risks for inpatient hospitalization, Severe depression anxiety, Discharge may exacerbated symptoms, Severe functional impairment Progress Toward Problem(s) and Goals/Treatment Plan: Milieu/structure/supportive therapy Medical consult will be called SW consultation for discharge plan and social issues Med management, meds resumed, risperdal increased pharmacy was called [phone] Family involvement Follow up on labs Will monitor closely Pt was educated about risk/benefits and alternatives of medications, coping strategies (safety plan, suicide prevention), relapse prevention, importance of follow up with psychiatrist and therapist, stay away from drugs/alcohol/smoking Estimated Date of D/C: 12/15/17
--- NOTE | 2017-12-08 16:07 | CON ---
NEUROLOGY CONSULTATION REASON FOR CONSULTATION: Generalized weakness and change in mental status. HISTORY OF PRESENT ILLNESS: This is a 47-year-old woman with past medical history of major depressive disorder as well as generalized anxiety disorder; PTSD, amphetamine-induced psychosis; history of lupus; endometriosis; pituitary adenoma, status post transsphenoidal resection; and trigeminal neuralgia, status post which were all seen on CAT scan of her head, who is currently here for psychosis and is complaining of parasites living inside her nose and took pictures and videos other people. Her CAT did show residual effects of craniotomy that she has for pituitary adenoma, otherwise no acute intracranial abnormalities. She has very flat and bizarre affect. PAST MEDICAL HISTORY: As above. ALLERGIES: ALLERGIC TO CITALOPRAM, LATEX, METRONIDAZOLE, AND PENICILLIN. REVIEW OF SYSTEMS: A 14-point review of systems negative except as per the HPI. FAMILY HISTORY: Noncontributory. SOCIAL HISTORY: No illicit drug use, smoking, or EtOH abuse at this time. MEDICATIONS: Reviewed by nurse per reconciliation sheet. LABORATORY DATA: U-tox is positive for benzos and amphetamines. No new labs on today otherwise. PHYSICAL EXAMINATION: VITAL SIGNS: Temperature 98.1, pulse rate of 83, blood pressure 150/65, respiratory rate 18. GENERAL: The patient is sitting up in bed, in no acute distress. HEENT: Head is atraumatic and normocephalic. PERRLA. Extraocular muscles intact. NECK: Supple. No JVD. No adenopathy noted. LUNGS: Clear to auscultation. No adventitious sounds. HEART: S1 and S2. Normal rate and rhythm. No murmurs, rubs, or gallops. ABDOMEN: Soft, nontender, and nondistended. Bowel sounds are present. EXTREMITIES: No clubbing. No cyanosis. Peripheral pulses are 2+ felt bilaterally. NEUROLOGIC: The patient is drowsy, but psychotic and disorganized thoughts. Cranial nerves II through XII are intact. Motor exam: Moves all extremities equally and follows simple commands. Sensory exam: Light touch, pinprick, proprioception, and vibration are intact. DTRs are 2+ throughout. Coordination: [id number] intact. No dysmetria noted. Gait is deferred for now. IMPRESSION: Change in mental status as well as her overall lethargy is likely secondary to amphetamine-induced psychosis, which she is withdrawing from. In addition, she does have a history of trigeminal neuralgia, for which she is on gabapentin 300 mg p.o. t.i.d. At this time, we will recommend to; 1. Continue with psychiatric management in regards to her underlying psychosis. 2. Continue with gabapentin 300 mg p.o. t.i.d. for neuropathic relief. 3. Continue with her Plaquenil for lupus. 4. Continue with levothyroxine 25 mcg p.o. daily for hypothyroidism. 5. Xanax 2 mg p.o. t.i.d. for underlying anxiety and continue with current psychiatric management. Thank you for this consult. Justin Aragon MD
[2017-12-09] MEDS: Levothyroxine 25 MCG TAB PO SCH (08:49)
--- NOTE | 2017-12-09 12:24 | PCM.PYCHPN ---
Psychiatric Progress Note - Psychiatric Progress Note Patient seen today, length of contact: 30min Patient Chief Complaint: "I feel little better" Problems Identified/Issues Discussed: Suicide/ homicide prevention, past psychiatric h/o, current psychiatric symptoms , medical problems, risk/benefits and alternatives of medications, medications compliance, coping strategies, substance abuse h/o, relapse prevention, importance of follow up with psychiatrist and therapist, discharge plan. Medical Problems: see HPI Diagnostic Results: 12/06/17 12:04 12/06/17 12:45 Lab Results 12/08/17 06:00: Fasting Glucose 91 12/08/17 06:00: 25-OH Vitamin D Total 31.7 12/08/17 06:00: Free T4 1.03 12/07/17 07:00: RPR Nonreactive 12/07/17 07:00: TSH 3rd Generation 0.65 12/07/17 07:00: Triglycerides 123, Cholesterol 158, LDL Cholesterol Direct 74, HDL Cholesterol 49 12/06/17 12:45: Alcohol, Quantitative < 10 12/06/17 12:45: Salicylates 5, Acetaminophen < 10.0 L 12/06/17 12:45: Sodium 143, Potassium 4.0, Chloride 103, Carbon Dioxide 30, Anion Gap 13, BUN 15, Creatinine 0.7, Est GFR ( Amer) > 60, Est GFR (Non- Af Amer) > 60, Random Glucose 85, Calcium 9.4, Magnesium 2.1, Total Bilirubin 0.4, AST 27, ALT 26, Alkaline Phosphatase 83, Lactate Dehydrogenase 537, Total Creatine Kinase 170, Troponin I < 0.01, NT-Pro-B Natriuret Pep 66.8, Total Protein 7.1, Albumin 3.7, Globulin 3.4, Albumin/Globulin Ratio 1.1 12/06/17 12:30: Urine Opiates Screen Negative, Urine Methadone Screen Negative, Ur Barbiturates Screen Negative, Ur Phencyclidine Scrn Negative, Ur Amphetamines Screen Positive H, U Benzodiazepines Scrn Positive H, U Oth Cocaine Metabols Negative, U Cannabinoids Screen Negative 12/06/17 12:30: Urine Color Yellow, Urine Appearance Clear, Urine pH 7.0, Ur Specific [place] 1.020, Urine Protein Negative, Urine Glucose (UA) Negative, Urine Ketones Negative, Urine Blood Trace-intact H, Urine Nitrate Negative, Urine Bilirubin Negative, Urine Urobilinogen 0.2, Ur Leukocyte Esterase Small H , Urine RBC 2 - 5, Urine WBC 5 - 10, Ur Epithelial Cells 6 - 8, Urine Bacteria Large, Urine Other Uyeast 12/06/17 12:05: PT 11.1, INR 0.97, APTT 31.7 12/06/17 12:04: WBC 8.1 D, RBC 3.90, Hgb 11.3 L, Hct 34.4 L, MCV 88.2, MCH 29.0 , MCHC 32.8, RDW 13.7, Plt Count 389, MPV 8.2, Gran % 60.6, Lymph % (Auto) 26.3 , [place] % (Auto) 5.3, Eos % (Auto) 6.8 H, Baso % (Auto) 1.0, Gran # 4.87, Lymph # (Auto) 2.1, [place] # (Auto) 0.4, Eos # (Auto) 0.6, Baso # (Auto) 0.08 Vital Signs Temp Pulse Resp BP Pulse Ox 12/08/17 06:41 98.1 F 95 H 18 115/65 12/07/17 16:00 83 131/95 H 12/07/17 12:50 134/82 12/07/17 06:53 98.2 F 71 19 134/82 12/07/17 04:00 97.5 F L 85 20 165/111 H 12/07/17 02:17 97.5 F L 12/07/17 01:00 98.4 F 88 18 128/83 97 12/06/17 22:57 98 F 92 H 22 121/81 98 12/06/17 20:33 97.9 F 97 H 22 127/81 97 12/06/17 15:01 97.4 F L 82 19 139/83 98 12/06/17 12:30 91 H 18 136/81 98 12/06/17 11:48 97.6 F 98 H 18 158/95 H 98 12/06/17 11:39 97.4 F L 99 H 18 140/94 H 97 DSM 5 Symptoms Update: shortly, patient's 47 year old female, reported history of major depressive disorder as well as generalized anxiety disorder, PTSD, pt also had h /o stimulant induced psychosis, patient also has multiple medical issues including Lupus endometriosis, pituitary adenomas/p transsphenoidal resection, and trigeminal neuralgia s/p stereotactic radiosurgery, 2 previous psychiatric admissions one 09/2017 and about a year ago at [facility] for psychosis, patient currently under care of of Dr. Gurjit Rai a local psychiatrist, patient brought by her mother because pt had multiple somatic complaints and complaining of parasites live insight her nose and pt took pictures and videos showing obsessively to her mother and others (pt had similar presentation last admission in September), pt was compliant with medications , but obviously failed outpatient treatment, patient requires further evaluation and stabilization into the psychiatric inpatient unit, medication titration. of note patient tried to elope from the emergency room, initially [facility] screening initiated, but patient signed voluntary consent for treatment. pt was seen in her room today, pt appeared with some improvement with her cognition, pt was able to participate in interview. pt said that she feels "little better", pt reported she had interrupted sleep, reported to feel depressed, but denied thoughts of harming self or others' as per staff pt is calm, but seclusive in her room, not participating in unit activities, pt is still paranoid and guarded. pt was seen by , neurologist 12/08/17, input appreciated, impression: trigeminal neuralgia and stimulant withdrawals. findings discussed with pt. pt was educated that stimulants are not good choice of medication for her. pt just glanced at this clinical writer. Patient's pharmacy contacted 12/08/17 patient was on following medications: prescriber Dr.Paul Rai Lunesta 3 mg at the nighttime Lexapro 20 mg daily, Adderall 20 mg 2 pills at the morning time and 1 pill at the nighttime filled in 11/27/2017, before that Adderall XL was prescribed to the patient patient filled that medication on patient was on clindamycin 300 mg twice a day Filled on 11/21/2017 patient also was on Xanax 2 mg 3 times a day patient also was on Z-[place] in 2017 Neurontin 300 mg 3 times a day. pt c/o frequent urinations, PMD was called, abx started. pt is drowsy, psychotic, disorganized. Pt tolerates meds well, no side effects observed or reported. AIMS 0, no EPS. pt did not want her mother to be involved, seems to be angry towards her "it is her fault". IMpression: substance induced mood disorder (amphetamines) r/o shcizoaffective Medication Change: Yes (sonata incresaed, riseprdal increased) Medical Record Reviewed: Yes Mental Status Examination - Cognitive Function Orientation: Person, Place, Situation Memory: Intact Attention: Poor Concentration: Poor Association: Loose Fund of Knowledge: WNL - Mood Mood: Depressed, Anxious - Affect Affect: Constricted - Formal Thought Process Formal Thought Process: Hallucinations, Delusions, Paranoia, Loosening of associations, Circumstantial - Suicidal Ideation Suicidal Ideation: No - Homicidal Ideation Homicidal Ideation: No Goal/Treatment Plan - Goal/Treatment Plan Need for Continued Stay: Remain at risks for inpatient hospitalization, Severe depression anxiety, Discharge may exacerbated symptoms, Severe functional impairment Progress Toward Problem(s) and Goals/Treatment Plan: Milieu/structure/supportive therapy Medical consult will be called SW consultation for discharge plan and social issues Med management Risperdal 1 mg twice a day at the morning time at the nighttime for psychosis and mood stabilization Lexapro 20 mg daily for depression and anxiety Sonata 10 mg at the nighttime for insomnia Xanax 2 mg 3 times a day for anxiety will be continued as of now Patient was seen by neurologist as well as primary care physician pharmacy was called [phone], see notes 12/09/17 pt was on adderral high doses prescribed by Dr.Paul Rai Family involvement Follow up on labs Will monitor closely Pt was educated about risk/benefits and alternatives of medications, coping strategies (safety plan, suicide prevention), relapse prevention, importance of follow up with psychiatrist and therapist, stay away from drugs/alcohol/smoking Estimated Date of D/C: 12/15/17
--- NOTE | 2017-12-09 19:25 | CP.PCM.PN ---
Subjective - Date & Time of Evaluation Date of Evaluation: 12/09/17 Time of Evaluation: 07:45 - Subjective Subjective: Patient is feeling better. Objective - Vital Signs/Intake and Output Vital Signs (last 24 hours): Temp Pulse Resp BP Pulse Ox 98.4 F 93 H 16 122/74 97 12/09/17 06:27 12/09/17 15:58 12/09/17 06:27 12/09/17 15:58 12/07/17 01:00 - Medications Medications: Current Medications Acetaminophen (Tylenol 325mg Tab) 650 mg PO Q4 PRN PRN Reason: Pain, moderate (4-7) Last Admin: 12/09/17 04:10 Dose: 650 mg Al Hydrox/Mg Hydrox/Simethicone (Maalox Plus 30 Ml) 30 ml PO DAILY PRN PRN Reason: Upset Stomach Alprazolam (Xanax) 2 mg PO TID BYRON PRN Reason: Protocol Last Admin: 12/09/17 18:48 Dose: 2 mg Escitalopram Oxalate (Lexapro) 20 mg PO DAILY BYRON Gabapentin (Neurontin) 300 mg PO TID BYRON PRN Reason: Protocol Last Admin: 12/09/17 18:48 Dose: 300 mg Hydroxychloroquine Sulfate (Plaquenil) 200 mg PO DAILY BYRON PRN Reason: Protocol Last Admin: 12/09/17 08:49 Dose: 200 mg Levothyroxine Sodium (Synthroid) 25 mcg PO DAILY [facility] Last Admin: 12/09/17 08:49 Dose: 25 mcg Lorazepam (Ativan) 2 mg PO Q6 PRN; Protocol PRN Reason: Agitation Lorazepam (Ativan) 2 mg IM Q6 PRN; Protocol PRN Reason: Agitation Magnesium Hydroxide (Milk Of Magnesia) 30 ml PO DAILY PRN PRN Reason: Constipation Nitrofurantoin Macrocrystals (Macrobid) 100 mg PO Q12 BYRON PRN Reason: Protocol Stop: 12/14/17 06:01 Last Admin: 12/09/17 18:49 Dose: 100 mg Risperidone (Risperdal Tab) 1 mg PO HS BYRON PRN Reason: Protocol Last Admin: 12/08/17 21:30 Dose: 1 mg Risperidone (Risperdal Tab) 1 mg PO DAILY BYRON PRN Reason: Protocol Sodium Chloride (Flushing Nasal [place]) 0 ml NS QID PRN PRN Reason: Nasal congestion Zaleplon (Sonata) 5 mg PO HS PRN PRN Reason: Insomnia Last Admin: 12/08/17 21:42 Dose: 5 mg Ziprasidone (Geodon Cap) 20 mg PO Q6 PRN; Protocol PRN Reason: Agitation Ziprasidone (Geodon Inj) 20 mg IM Q6 PRN; Protocol PRN Reason: Agitation - Labs Labs: PT 11.1 SECONDS (9.4-12.5) 12/06/17 12:05 INR 0.97 (0.93-1.08) 12/06/17 12:05 APTT 31.7 Seconds (25.1-36.5) 12/06/17 12:05 - Constitutional Appears: No Acute Distress - Respiratory Exam Respiratory Exam: Clear to Ausculation Bilateral, NORMAL BREATHING PATTERN - Cardiovascular Exam Cardiovascular Exam: +S1, +S2 - GI/Abdominal Exam GI & Abdominal Exam: Soft, Normal Bowel Sounds. absent: Tenderness Assessment and Plan - Assessment and Plan (Free Text) Assessment: Hypothyroidism Lupus Pituitary adenoma s/p craniotomy Trigeminal Neuralgia s/p stereotatic radiosurgery Depression Plan: Urine culture shows contamination. Will repeat urinalysis. continue Synthroid for hypothyroidism continue Plaquenil for Lupus
[2017-12-10] MEDS: Iohexol 240 (50 ml) ONE (08:06)
--- NOTE | 2017-12-10 08:39 | PN ---
DATE: 12/10/2017 SUBJECTIVE: The patient is in [facility] in [place] in the Behavioral Care Unit. The patient was admitted with medical problems combined with acute psychosis. The patient has past history of lupus. The patient has had history of trigeminal neuralgia, hypothyroidism. ALLERGIES: THE PATIENT ALSO HAS HISTORY OF ALLERGY TO CITALOPRAM, LATEX, METRONIDAZOLE, PENICILLIN, SULFA AND KEFLEX. He was seen this morning eating her breakfast. She is comfortable. She has no complaints. PHYSICAL EXAMINATION: VITAL SIGNS: The patient's pulse is 89, blood pressure 39/94, respirations are 20, O2 sat is 97% on room air, the patient's temperature 97.9. HEENT: The patient's head is normocephalic, but the patient has had procedure for trigeminal neuralgia. LUNGS: Clear. HEART: Normal sinus rhythm. ABDOMEN: Soft. Liver and spleen not palpable. CONSTRUCTION FLAGGER: She is conscious, rationale, oriented. Able to answer all questions. No focal neurological deficits. LABORATORY DATA: The patient's blood work, hemoglobin is 11.3. The patient's white count is normal. Chemistry, the patient's blood work is stable. MEDICATIONS: Her medications consist of Ativan. The patient is on Geodon, Lexapro. The patient is on nitrofurantoin for cystitis. Her condition is improving. The patient is also getting gabapentin for neuralgia. ASSESSMENT AND PLAN: We will continue current management. Her diet is heart-healthy diet. We will follow up. Primitivo Toro MD
[2017-12-10] MEDS: Levothyroxine 25 MCG TAB PO SCH (08:59)
--- NOTE | 2017-12-10 10:17 | PCM.PYCHPN ---
Psychiatric Progress Note - Psychiatric Progress Note Patient seen today, length of contact: 30min Patient Chief Complaint: "I feel little better" Problems Identified/Issues Discussed: Suicide/ homicide prevention, past psychiatric h/o, current psychiatric symptoms , medical problems, risk/benefits and alternatives of medications, medications compliance, coping strategies, substance abuse h/o, relapse prevention, importance of follow up with psychiatrist and therapist, discharge plan. Medical Problems: see HPI Diagnostic Results: 12/06/17 12:04 12/06/17 12:45 Lab Results 12/08/17 06:00: Fasting Glucose 91 12/08/17 06:00: 25-OH Vitamin D Total 31.7 12/08/17 06:00: Free T4 1.03 12/07/17 07:00: RPR Nonreactive 12/07/17 07:00: TSH 3rd Generation 0.65 12/07/17 07:00: Triglycerides 123, Cholesterol 158, LDL Cholesterol Direct 74, HDL Cholesterol 49 12/06/17 12:45: Alcohol, Quantitative < 10 12/06/17 12:45: Salicylates 5, Acetaminophen < 10.0 L 12/06/17 12:45: Sodium 143, Potassium 4.0, Chloride 103, Carbon Dioxide 30, Anion Gap 13, BUN 15, Creatinine 0.7, Est GFR ( Amer) > 60, Est GFR (Non- Af Amer) > 60, Random Glucose 85, Calcium 9.4, Magnesium 2.1, Total Bilirubin 0.4, AST 27, ALT 26, Alkaline Phosphatase 83, Lactate Dehydrogenase 537, Total Creatine Kinase 170, Troponin I < 0.01, NT-Pro-B Natriuret Pep 66.8, Total Protein 7.1, Albumin 3.7, Globulin 3.4, Albumin/Globulin Ratio 1.1 12/06/17 12:30: Urine Opiates Screen Negative, Urine Methadone Screen Negative, Ur Barbiturates Screen Negative, Ur Phencyclidine Scrn Negative, Ur Amphetamines Screen Positive H, U Benzodiazepines Scrn Positive H, U Oth Cocaine Metabols Negative, U Cannabinoids Screen Negative 12/06/17 12:30: Urine Color Yellow, Urine Appearance Clear, Urine pH 7.0, Ur Specific [place] 1.020, Urine Protein Negative, Urine Glucose (UA) Negative, Urine Ketones Negative, Urine Blood Trace-intact H, Urine Nitrate Negative, Urine Bilirubin Negative, Urine Urobilinogen 0.2, Ur Leukocyte Esterase Small H , Urine RBC 2 - 5, Urine WBC 5 - 10, Ur Epithelial Cells 6 - 8, Urine Bacteria Large, Urine Other Uyeast 12/06/17 12:05: PT 11.1, INR 0.97, APTT 31.7 12/06/17 12:04: WBC 8.1 D, RBC 3.90, Hgb 11.3 L, Hct 34.4 L, MCV 88.2, MCH 29.0 , MCHC 32.8, RDW 13.7, Plt Count 389, MPV 8.2, Gran % 60.6, Lymph % (Auto) 26.3 , [place] % (Auto) 5.3, Eos % (Auto) 6.8 H, Baso % (Auto) 1.0, Gran # 4.87, Lymph # (Auto) 2.1, [place] # (Auto) 0.4, Eos # (Auto) 0.6, Baso # (Auto) 0.08 Vital Signs Temp Pulse Resp BP Pulse Ox 12/08/17 06:41 98.1 F 95 H 18 115/65 12/07/17 16:00 83 131/95 H 12/07/17 12:50 134/82 12/07/17 06:53 98.2 F 71 19 134/82 12/07/17 04:00 97.5 F L 85 20 165/111 H 12/07/17 02:17 97.5 F L 12/07/17 01:00 98.4 F 88 18 128/83 97 12/06/17 22:57 98 F 92 H 22 121/81 98 12/06/17 20:33 97.9 F 97 H 22 127/81 97 12/06/17 15:01 97.4 F L 82 19 139/83 98 12/06/17 12:30 91 H 18 136/81 98 12/06/17 11:48 97.6 F 98 H 18 158/95 H 98 12/06/17 11:39 97.4 F L 99 H 18 140/94 H 97 UA showed contamination Ua was repeated pt was seen by DSM 5 Symptoms Update: shortly, patient's 47 year old female, reported history of major depressive disorder as well as generalized anxiety disorder, PTSD, pt also had h /o stimulant induced psychosis, patient also has multiple medical issues including Lupus endometriosis, pituitary adenomas/p transsphenoidal resection, and trigeminal neuralgia s/p stereotactic radiosurgery, 2 previous psychiatric admissions one 09/2017 and about a year ago at [facility] for psychosis, patient currently under care of of Dr. Gurjit Rai a local psychiatrist, patient brought by her mother because pt had multiple somatic complaints and complaining of parasites live insight her nose and pt took pictures and videos showing obsessively to her mother and others (pt had similar presentation last admission in September), pt was compliant with medications , but obviously failed outpatient treatment, patient requires further evaluation and stabilization into the psychiatric inpatient unit, medication titration. of note patient tried to elope from the emergency room, initially [facility] screening initiated, but patient signed voluntary consent for treatment. pt was seen in her room today, pt appeared with improvement with her cognition, pt was able to participate in interview. pt said that she feels "little better", pt reported she had interrupted sleep, reported to feel less depressed, but denied thoughts of harming self or others. as per staff pt is calm, more visible in the unit, pt is guarded but no agitation or aggression. pt was seen by , neurologist 12/08/17, input appreciated, impression: trigeminal neuralgia and stimulant withdrawals. findings discussed with pt. pt was educated that stimulants are not good choice of medication for her. pt just glanced at this engineering writer. Patient's pharmacy contacted 12/08/17 patient was on following medications: prescriber Dr.Paul Rai Lunesta 3 mg at the nighttime Lexapro 20 mg daily, Adderall 20 mg 2 pills at the morning time and 1 pill at the nighttime filled in 11/27/2017, before that Adderall XL was prescribed to the patient patient filled that medication on patient was on clindamycin 300 mg twice a day Filled on 11/21/2017 patient also was on Xanax 2 mg 3 times a day patient also was on Z-[place] in 2017 Neurontin 300 mg 3 times a day. Pt tolerates meds well, no side effects observed or reported. AIMS 0, no EPS. Pt's mother contacted this engineering writer 12/09/17, reported that pt has ENT surgeon on MondayDecember 12 and pt was waiting for this appt for "months", pt's right "sinusis bone collapsed, he was keep asking if Jacqui snorted cocaine, which she did not", pt was on Intranasal steroids prior to come to the hospital, pt also was on antibiotics for severe sinus infection and "because her nasal bone collapsed she cannot have sufficient nasal drainage", pt did not give permission to disclose any info to her mother which this engineering writer respected, but pt's mother disclosed info above. will consider to d/c pt on Monday am. IMpression: substance induced mood disorder (amphetamines) r/o shcizoaffective Medication Change: Yes (sonata incresaed, riseprdal increased yesterday) Medical Record Reviewed: Yes Mental Status Examination - Cognitive Function Orientation: Person, Place, Situation Memory: Intact Attention: Poor (some improvement) Concentration: Poor (some improvement) Association: Loose (some improvement) Fund of Knowledge: WNL - Mood Mood: Depressed (improvement), Anxious (patient denied being depressed) - Affect Affect: Constricted (but more reactive today) - Formal Thought Process Formal Thought Process: Hallucinations (denied), Delusions, Paranoia, Loosening of associations, Circumstantial - Suicidal Ideation Suicidal Ideation: No - Homicidal Ideation Homicidal Ideation: No Goal/Treatment Plan - Goal/Treatment Plan Need for Continued Stay: Remain at risks for inpatient hospitalization, Severe depression anxiety, Discharge may exacerbated symptoms, Severe functional impairment Progress Toward Problem(s) and Goals/Treatment Plan: Milieu/structure/supportive therapy Medical consult will be called SW consultation for discharge plan and social issues Med management Risperdal 1 mg twice a day at the morning time at the nighttime for psychosis and mood stabilization Lexapro 20 mg daily for depression and anxiety Sonata 10 mg at the nighttime for insomnia Xanax 2 mg 3 times a day for anxiety will be continued as of now Patient was seen by neurologist as well as primary care physician pharmacy was called [phone], see notes 12/09/17 pt was on adderral high doses prescribed by Dr.Paul Rai, Adderall was discontinued Patient has appointment with ENT surgeon on December 12. If patient will do well, we'll consider to discharge patient under her mother custody in order for the patient to have that appointment. Family involvement Follow up on labs Will monitor closely Pt was educated about risk/benefits and alternatives of medications, coping strategies (safety plan, suicide prevention), relapse prevention, importance of follow up with psychiatrist and therapist, stay away from drugs/alcohol/smoking Estimated Date of D/C: 12/12/17
[2017-12-10 20:31] LABS: URINE BILIRUBIN NEGATIVE (NEGATIVE); URINE BLOOD TRACE-LYSED (NEGATIVE); URINE GLUCOSE (UA) NEGATIVE (NEGATIVE); URINE LEUKOCYTE ESTERASE SMALL Leu/uL (NEGATIVE); URINE PROTEIN NEGATIVE mg/dL (<30 mg/dL); URINE UROBILINOGEN 0.2 E.U./dL (<1 E.U./dL)
[2017-12-10 20:48] LABS: URINE APPEARANCE CLOUDY (CLEAR); URINE COLOR YELLOW (YELLOW)
[2017-12-10 20:59] LABS: URINE BACTERIA MOD (NEG)
[2017-12-11] MEDS: Levothyroxine 25 MCG TAB PO SCH (08:43)
--- NOTE | 2017-12-11 11:08 | PN ---
DATE: 12/11/2017 SUBJECTIVE: Patient is in [facility], room 513, bed 2. Patient was admitted with psychosis. Patient has medical conditions. She has been treated for trigeminal neuralgia, pituitary adenoma. Patient has history of neuropathy. Patient also has a history of hypothyroidism, past history of cholecystectomy. Seen this morning, she is comfortable, she is able to ambulate. PHYSICAL EXAMINATION: VITAL SIGNS: Pulse is 73, blood pressure , respirations are 20 per minute, O2 sat 97% on room air. HEENT: Head is normocephalic. There is no evidence of any scar on the right hinduism. Patient states she had some surgical procedure, probably a needle procedure was done to ambulate the trigeminal nerve. NECK: Thyroid is not enlarged. Carotid pulses are present. LUNGS: Trachea central. Breath sounds are vesicular. No adventitious sounds. HEART: Normal sinus rhythm. No murmurs. ABDOMEN: Soft. Liver and spleen not palpable. CENTRAL NERVOUS SYSTEM: No focal deficits are noted at this time. LABORATORY DATA: There is no change in blood work. MEDICATIONS: Consist of Ativan. Patient is on Geodon, Lexapro, Macrodantin, magnesium oxide. Patient is also getting Synthroid 25 mcg daily, Plaquenil for management of lupus 200 mg daily. Patient's condition is improving. We will follow up. Primitivo Toro MD
--- NOTE | 2017-12-11 16:00 | PCM.PYCHPN ---
Psychiatric Progress Note - Psychiatric Progress Note Patient seen today, length of contact: 30min Patient Chief Complaint: "I feel better, I want to go tomorrow" Problems Identified/Issues Discussed: Suicide/ homicide prevention, past psychiatric h/o, current psychiatric symptoms , medical problems, risk/benefits and alternatives of medications, medications compliance, coping strategies, substance abuse h/o, relapse prevention, importance of follow up with psychiatrist and therapist, discharge plan. Medical Problems: see HPI Diagnostic Results: 12/06/17 12:04 12/06/17 12:45 Lab Results 12/08/17 06:00: Fasting Glucose 91 12/08/17 06:00: 25-OH Vitamin D Total 31.7 12/08/17 06:00: Free T4 1.03 12/07/17 07:00: RPR Nonreactive 12/07/17 07:00: TSH 3rd Generation 0.65 12/07/17 07:00: Triglycerides 123, Cholesterol 158, LDL Cholesterol Direct 74, HDL Cholesterol 49 12/06/17 12:45: Alcohol, Quantitative < 10 12/06/17 12:45: Salicylates 5, Acetaminophen < 10.0 L 12/06/17 12:45: Sodium 143, Potassium 4.0, Chloride 103, Carbon Dioxide 30, Anion Gap 13, BUN 15, Creatinine 0.7, Est GFR ( Amer) > 60, Est GFR (Non- Af Amer) > 60, Random Glucose 85, Calcium 9.4, Magnesium 2.1, Total Bilirubin 0.4, AST 27, ALT 26, Alkaline Phosphatase 83, Lactate Dehydrogenase 537, Total Creatine Kinase 170, Troponin I < 0.01, NT-Pro-B Natriuret Pep 66.8, Total Protein 7.1, Albumin 3.7, Globulin 3.4, Albumin/Globulin Ratio 1.1 12/06/17 12:30: Urine Opiates Screen Negative, Urine Methadone Screen Negative, Ur Barbiturates Screen Negative, Ur Phencyclidine Scrn Negative, Ur Amphetamines Screen Positive H, U Benzodiazepines Scrn Positive H, U Oth Cocaine Metabols Negative, U Cannabinoids Screen Negative 12/06/17 12:30: Urine Color Yellow, Urine Appearance Clear, Urine pH 7.0, Ur Specific [place] 1.020, Urine Protein Negative, Urine Glucose (UA) Negative, Urine Ketones Negative, Urine Blood Trace-intact H, Urine Nitrate Negative, Urine Bilirubin Negative, Urine Urobilinogen 0.2, Ur Leukocyte Esterase Small H , Urine RBC 2 - 5, Urine WBC 5 - 10, Ur Epithelial Cells 6 - 8, Urine Bacteria Large, Urine Other Uyeast 12/06/17 12:05: PT 11.1, INR 0.97, APTT 31.7 12/06/17 12:04: WBC 8.1 D, RBC 3.90, Hgb 11.3 L, Hct 34.4 L, MCV 88.2, MCH 29.0 , MCHC 32.8, RDW 13.7, Plt Count 389, MPV 8.2, Gran % 60.6, Lymph % (Auto) 26.3 , Cobb % (Auto) 5.3, Eos % (Auto) 6.8 H, Baso % (Auto) 1.0, Gran # 4.87, Lymph # (Auto) 2.1, Cobb # (Auto) 0.4, Eos # (Auto) 0.6, Baso # (Auto) 0.08 Vital Signs Temp Pulse Resp BP Pulse Ox 12/08/17 06:41 98.1 F 95 H 18 115/65 12/07/17 16:00 83 131/95 H 12/07/17 12:50 134/82 12/07/17 06:53 98.2 F 71 19 134/82 12/07/17 04:00 97.5 F L 85 20 165/111 H 12/07/17 02:17 97.5 F L 12/07/17 01:00 98.4 F 88 18 128/83 97 12/06/17 22:57 98 F 92 H 22 121/81 98 12/06/17 20:33 97.9 F 97 H 22 127/81 97 12/06/17 15:01 97.4 F L 82 19 139/83 98 12/06/17 12:30 91 H 18 136/81 98 12/06/17 11:48 97.6 F 98 H 18 158/95 H 98 12/06/17 11:39 97.4 F L 99 H 18 140/94 H 97 UA showed contamination Ua was repeated pt was seen by DSM 5 Symptoms Update: shortly, patient's 47 year old female, reported history of major depressive disorder as well as generalized anxiety disorder, PTSD, pt also had h /o stimulant induced psychosis, patient also has multiple medical issues including Lupus endometriosis, pituitary adenomas/p transsphenoidal resection, and trigeminal neuralgia s/p stereotactic radiosurgery, 2 previous psychiatric admissions one 09/2017 and about a year ago at [facility] for psychosis, patient currently under care of of Dr. Gurjit Rai a local psychiatrist, patient brought by her mother because pt had multiple somatic complaints and complaining of parasites live insight her nose and pt took pictures and videos showing obsessively to her mother and others (pt had similar presentation last admission in September), pt was compliant with medications , but obviously failed outpatient treatment, patient requires further evaluation and stabilization into the psychiatric inpatient unit, medication titration. of note patient tried to elope from the emergency room, initially [facility] screening initiated, but patient signed voluntary consent for treatment. pt was seen in her room today, pt appeared with improvement with her cognition, but drowsy, pt said that risperdal 1mg is "too strong for me, I feel drowsy". pt willing to decrease dose to the previous dose 0.5mg po bid. patient still does not want this process description writer to contact her family, patient reported that she feels much better, patient wants to go and see her outpatient EMT surgeon tomorrow at 10 AM. Patient does not want this process description writer to disclose any information about her treatment to her mother. he shouldn't reported her sleep improved, reported to feel less depressed, but denied thoughts of harming self or others. as per staff pt is calm, more visible in the unit, no agitation or aggression. pt was seen by , neurologist 12/08/17, input appreciated, impression: trigeminal neuralgia and stimulant withdrawals. findings discussed with pt. pt was educated that stimulants are not good choice of medication for her. pt just glanced at this process description writer. Patient's pharmacy contacted 12/08/17 patient was on following medications: prescriber Dr.Paul Rai Lunesta 3 mg at the nighttime Lexapro 20 mg daily, Adderall 20 mg 2 pills at the morning time and 1 pill at the nighttime filled in 11/27/2017, before that Adderall XL was prescribed to the patient patient filled that medication on patient was on clindamycin 300 mg twice a day Filled on 11/21/2017 patient also was on Xanax 2 mg 3 times a day patient also was on [place] in 2017 Neurontin 300 mg 3 times a day. Pt tolerates meds well, no side effects observed or reported. AIMS 0, no EPS. Pt's mother contacted this process description writer 12/09/17, reported that pt has ENT surgeon on MondayDecember 12 and pt was waiting for this appt for "months", pt's right "sinusis bone collapsed, he was keep asking if Jacqui snorted cocaine, which she did not", pt was on Intranasal steroids prior to come to the hospital, pt also was on antibiotics for severe sinus infection and "because her nasal bone collapsed she cannot have sufficient nasal drainage", pt did not give permission to disclose any info to her mother which this process description writer respected, but pt's mother disclosed info above. pt will be d/c pt on Monday am. prescription for risperdal only given to the pt. the rest of meds pt filled less than 2 weeks ago. pt was advised to stay off the stimulants, pt verbalized understanding. pt was also provided with copy of the CT scan of the head. IMpression: substance induced psychotic disorder (amphetamines) r/o shcizoaffective Medication Change: Yes (sonata incresaed, riseprdal increased yesterday) Medical Record Reviewed: Yes Mental Status Examination - Cognitive Function Orientation: Person, Place, Situation Memory: Intact Attention: Poor (improvement) Concentration: Poor (improvement) Association: Loose (improvement) Fund of Knowledge: WNL - Mood Mood: Depressed (improvement), Anxious (patient denied being anxious) - Affect Affect: Constricted (but more reactive today) - Formal Thought Process Formal Thought Process: Hallucinations (denied), Delusions (denied), Paranoia ( denied) - Suicidal Ideation Suicidal Ideation: No - Homicidal Ideation Homicidal Ideation: No Goal/Treatment Plan - Goal/Treatment Plan Need for Continued Stay: Remain at risks for inpatient hospitalization, Severe depression anxiety, Discharge may exacerbated symptoms, Severe functional impairment Progress Toward Problem(s) and Goals/Treatment Plan: Milieu/structure/supportive therapy Medical consult will be called SW consultation for discharge plan and social issues Med management Risperdal 0.5 mg twice a day at the morning time at the nighttime for psychosis and mood stabilization Lexapro 20 mg daily for depression and anxiety Sonata 10 mg at the nighttime for insomnia Xanax 2 mg 3 times a day for anxiety will be continued as of now Patient was seen by neurologist as well as primary care physician pharmacy was called [phone], see notes 12/09/17 pt was on adderral high doses prescribed by Dr.Paul Rai, Adderall was discontinued Patient has appointment with ENT surgeon on December 12. pt will be d/c 12/12/17 under her mother custody in order for the patient to have ENT surgical appt Family involvement Follow up on labs Will monitor closely Pt was educated about risk/benefits and alternatives of medications, coping strategies (safety plan, suicide prevention), relapse prevention, importance of follow up with psychiatrist and therapist, stay away from drugs/alcohol/smoking Estimated Date of D/C: 12/12/17
[2017-12-11 19:19] VITALS: PULSE 98
[2017-12-12 06:55] VITALS: BP 130/80; RESP 16; TEMP 97.9
--- NOTE | 2017-12-12 08:17 | PN ---
DATE: 12/12/2017 LOCATION: The patient is in [facility] Unit. SUBJECTIVE: The patient is being treated for psychosis. She has medical problems. She has history of trigeminal neuralgia, lupus erythematosus, hypothyroidism. The patient has history of gallbladder surgery. She also has history of dizziness. She is pending an ENT consult as an outpatient. She will be discharged according to the behavioral care physician this morning. Medically, she is clear. Her urinary tract infection was treated with Macrobid and the patient has responded very well. PHYSICAL EXAMINATION: VITAL SIGNS: The patient's pulse is 98, blood pressure 130/80, respirations were 16, temperature 97.9. HEENT: On examination, the patient's head is normocephalic. I do not see any scars on the head. NECK: The thyroid is not clinically enlarged. JVP is flat. HEART: Normal sinus rhythm. S1, S2 present. LUNGS: Clear. ABDOMEN: Soft. Liver and spleen not palpable. BRICK OR BLOCK MAKER: She is conscious, rationale, oriented and pleasant at this time. LABORATORY DATA: The patient's lab work is not significant. ASSESSMENT AND PLAN: The medications will be continued. She is on Ativan. The patient is on Lexapro. The patient's Geodon will be terminated when the patient leaves the hospital. She will be followed up by the private physician of her choice. Primitivo Toro MD
[2017-12-12] MEDS: Levothyroxine 25 MCG TAB PO SCH (08:24)
--- NOTE | 2017-12-12 17:35 | PCM.PYCHDC ---
Mental Status Examination - Mental Status Examination Orientation: Person, Place, Situation, Time Memory: Intact Mood: Neutral Affect: Constricted Attention: WNL (improved) Concentration: WNL (improved) Association: Loose (but improved significantly) Fund of Knowledge: WNL Formal Thought Process: Circumstantial Description of patient's judgement and insight: Pt has improved insight into mental and medical illness, pt was compliant with medications and unit rules and regulations, pt was going to groups, was calm, cooperative, socially appropriate, no behavioral incidents, no agitation, no aggression. Psychotic Thoughts and Behaviors: Pt denied v/a/t hallucinations, denied paranoid ideations,patient's psychotic symptoms are much better. Suicidal Ideation: No Current Homicidal Ideation?: No Plan: pt adamantly denied thoughts of harming self or others denied intent or plan. Discharge Summary - Discharge Note Reason for Hospitalization: pt was admitted for evaluation and stabilization of psychosis, disorganized thoughts and behavior, which mostly related to stimulant patient used as well as patient was prescribed steroids for her sinus infection.. Psychiatric History (includes Medical, Family, Personal Hx): see HPI Laboratory Data: 12/06/17 12:04 12/06/17 12:45 Lab Results 12/10/17 19:45: Urine Color Yellow, Urine Appearance Cloudy, Urine pH 6.0, Ur Specific [place] >= 1.030, Urine Protein Negative, Urine Glucose (UA) Negative, Urine Ketones Negative, Urine Blood Trace-lysed H, Urine Nitrate Negative, Urine Bilirubin Negative, Urine Urobilinogen 0.2, Ur Leukocyte Esterase Small H , Urine RBC 1 - 3, Urine WBC 5 - 10, Ur Epithelial Cells 10 - 12, Urine Bacteria Mod 12/08/17 06:00: Fasting Glucose 91 12/08/17 06:00: 25-OH Vitamin D Total 31.7 12/08/17 06:00: Free T4 1.03 12/07/17 07:00: RPR Nonreactive 12/07/17 07:00: TSH 3rd Generation 0.65 12/07/17 07:00: Triglycerides 123, Cholesterol 158, LDL Cholesterol Direct 74, HDL Cholesterol 49 12/06/17 12:45: Alcohol, Quantitative < 10 12/06/17 12:45: Salicylates 5, Acetaminophen < 10.0 L 12/06/17 12:45: Sodium 143, Potassium 4.0, Chloride 103, Carbon Dioxide 30, Anion Gap 13, BUN 15, Creatinine 0.7, Est GFR ( Amer) > 60, Est GFR (Non- Af Amer) > 60, Random Glucose 85, Calcium 9.4, Magnesium 2.1, Total Bilirubin 0.4, AST 27, ALT 26, Alkaline Phosphatase 83, Lactate Dehydrogenase 537, Total Creatine Kinase 170, Troponin I < 0.01, NT-Pro-B Natriuret Pep 66.8, Total Protein 7.1, Albumin 3.7, Globulin 3.4, Albumin/Globulin Ratio 1.1 12/06/17 12:30: Urine Opiates Screen Negative, Urine Methadone Screen Negative, Ur Barbiturates Screen Negative, Ur Phencyclidine Scrn Negative, Ur Amphetamines Screen Positive H, U Benzodiazepines Scrn Positive H, U Oth Cocaine Metabols Negative, U Cannabinoids Screen Negative 12/06/17 12:30: Urine Color Yellow, Urine Appearance Clear, Urine pH 7.0, Ur Specific [place] 1.020, Urine Protein Negative, Urine Glucose (UA) Negative, Urine Ketones Negative, Urine Blood Trace-intact H, Urine Nitrate Negative, Urine Bilirubin Negative, Urine Urobilinogen 0.2, Ur Leukocyte Esterase Small H , Urine RBC 2 - 5, Urine WBC 5 - 10, Ur Epithelial Cells 6 - 8, Urine Bacteria Large, Urine Other Uyeast 12/06/17 12:05: PT 11.1, INR 0.97, APTT 31.7 12/06/17 12:04: WBC 8.1 D, RBC 3.90, Hgb 11.3 L, Hct 34.4 L, MCV 88.2, MCH 29.0 , MCHC 32.8, RDW 13.7, Plt Count 389, MPV 8.2, Gran % 60.6, Lymph % (Auto) 26.3 , Moore % (Auto) 5.3, Eos % (Auto) 6.8 H, Baso % (Auto) 1.0, Gran # 4.87, Lymph # (Auto) 2.1, Moore # (Auto) 0.4, Eos # (Auto) 0.6, Baso # (Auto) 0.08 Vital Signs Temp Pulse Resp BP Pulse Ox 12/12/17 06:54 97.9 F 98 H 16 130/80 12/11/17 16:00 98 H 135/89 12/11/17 07:18 97.3 F L 73 134/73 12/10/17 15:00 96 H 131/74 12/10/17 07:00 97.9 F 89 20 139/94 H 97 12/10/17 06:40 97.9 F 89 20 139/94 H 97 12/09/17 15:58 93 H 122/74 12/09/17 06:27 98.4 F 87 16 121/69 12/08/17 16:00 97 H 145/95 H 12/08/17 06:41 98.1 F 95 H 18 115/65 12/07/17 16:00 83 131/95 H 12/07/17 12:50 134/82 12/07/17 06:53 98.2 F 71 19 134/82 12/07/17 04:00 97.5 F L 85 20 165/111 H 12/07/17 02:17 97.5 F L 12/07/17 01:00 98.4 F 88 18 128/83 97 12/06/17 22:57 98 F 92 H 22 121/81 98 12/06/17 20:33 97.9 F 97 H 22 127/81 97 12/06/17 15:01 97.4 F L 82 19 139/83 98 12/06/17 12:30 91 H 18 136/81 98 12/06/17 11:48 97.6 F 98 H 18 158/95 H 98 12/06/17 11:39 97.4 F L 99 H 18 140/[address] scan of the head was done U findings, please see CT scan reported for more detailed information, patient was seen by neurology team Consultations:: List each consultation separately and include: 1. Reason for request. 2. Findings. 3. Follow-up Consultations: medical and neurology consults appreciated see notes for more detailed information Summary of Hospital Course include:: 1. Description of specific treatment plan utilized for patients during their course of treatmen. 2. Summarize the time- course for resolution of acute symptoms and/or regressed behaviors. 3. Describe issues identified and worked on during hospitalization. 4. Describe medication utilized. 5. Describe medical problems identified and treated. 6. Reassessment of suicide risk Summary of Hospital Course: shortly, patient's 47 year old female, reported history of major depressive disorder as well as generalized anxiety disorder, PTSD, pt also had h /o stimulant induced psychosis, patient also has multiple medical issues including Lupus endometriosis, pituitary adenomas/p transsphenoidal resection, and trigeminal neuralgia s/p stereotactic radiosurgery, 2 previous psychiatric admissions one 09/2017 and about a year ago at [facility] for psychosis, patient currently under care of of Dr. Alison Rai in the community, patient brought by her mother because pt had multiple somatic complaints and complaining of parasites live insight her nose and pt took pictures and videos showing obsessively to her mother and others (pt had similar presentation last admission in September), pt was compliant with medications, but obviously failed outpatient treatment, patient requires further evaluation and stabilization into the psychiatric inpatient unit, medication titration. of note patient tried to elope from the emergency room, initially [facility] screening initiated, but patient signed voluntary consent for treatment. at the time of initial evaluation patient presented with good ADLs, acceptable personal hygiene, patient is laying on her bed, refused to talk, appears to be depressed and angry, patient was blaming her mother for this admission. appeared to be irritable, annoyed, was giving only yes or no answers. as per PES report, pt was psychotic has had feeling that worms in her nose, visual hallucinations (bumps on rodriguez) in the past 3 weeks, mood swings/changes , social isolation, unable to function/get out of bed, bizarre bx. (taking pics all over her body and showing mother), repeatedly states she is sick, pt. is causing self injury to nose due to tactile hallucinations/worms in nose/ believes worms are also on her fingers. Pt under care of psychiatrist Dr. Rai. Pt. was last seen on 11/27/17 and has follow-up appt. on 12/11/17. Pt. has been compliant with psychiatrist, but not w/ psychotherapist. RADHA Baker from [facility] was last seen on 10/30/17 and pt. is suppose to see therapist 1x a week. as per pharmacy report patient was prescribed high doses of stimulants as well urine drug screen was positive for Stimulants no detox or rehab in the past. UDS + for amphetamines and benzodiazepines. Hx of stimulant abuse. Stimulant abuse induced psychosis hx. Patient reported that she was feeling depressed, hopeless, helpless, but denied thoughts of harming herself or others. Patient denied hearing voices, denied seeing things, but obviously presented to be guarded, paranoid, as well as psychotic. Patient denied history of being abused, denied any flashbacks and nightmares in the past. patient denied using drugs, denied smoking, denied alcohol consumption. but amphetamines positive in urine No manic symptoms elicited. patient reported that she feels anxious, reported that she is staying home most of the times, patient feels on ease in the social situation, panic attacks more frequent. Past psychiatric history: As described two admissions in the past, [facility] [place] and [facility] with same presentation. medical history: Patient has significant medical history for pituitary adenoma, status post resection, trigeminal neuralgia, endometriosis, Lupus, hypothyroidism, sinusitis family history: Patient denied, but as per emergency room evaluation, family has strong history of substance abuse. 12/06/17 12:04 12/06/17 12:45 Lab Results 12/07/17 07:00: TSH 3rd Generation 0.65 12/07/17 07:00: Triglycerides 123, Cholesterol 158, LDL Cholesterol Direct 74, HDL Cholesterol 49 12/06/17 12:45: Alcohol, Quantitative < 10 12/06/17 12:45: Salicylates 5, Acetaminophen < 10.0 L 12/06/17 12:45: Sodium 143, Potassium 4.0, Chloride 103, Carbon Dioxide 30, Anion Gap 13, BUN 15, Creatinine 0.7, Est GFR ( Amer) > 60, Est GFR (Non- Af Amer) > 60, Random Glucose 85, Calcium 9.4, Magnesium 2.1, Total Bilirubin 0.4, AST 27, ALT 26, Alkaline Phosphatase 83, Lactate Dehydrogenase 537, Total Creatine Kinase 170, Troponin I < 0.01, NT-Pro-B Natriuret Pep 66.8, Total Protein 7.1, Albumin 3.7, Globulin 3.4, Albumin/Globulin Ratio 1.1 12/06/17 12:30: Urine Opiates Screen Negative, Urine Methadone Screen Negative, Ur Barbiturates Screen Negative, Ur Phencyclidine Scrn Negative, Ur Amphetamines Screen Positive H, U Benzodiazepines Scrn Positive H, U Oth Cocaine Metabols Negative, U Cannabinoids Screen Negative 12/06/17 12:30: Urine Color Yellow, Urine Appearance Clear, Urine pH 7.0, Ur Specific [place] 1.020, Urine Protein Negative, Urine Glucose (UA) Negative, Urine Ketones Negative, Urine Blood Trace-intact H, Urine Nitrate Negative, Urine Bilirubin Negative, Urine Urobilinogen 0.2, Ur Leukocyte Esterase Small H , Urine RBC 2 - 5, Urine WBC 5 - 10, Ur Epithelial Cells 6 - 8, Urine Bacteria Large, Urine Other Uyeast 12/06/17 12:05: PT 11.1, INR 0.97, APTT 31.7 12/06/17 12:04: WBC 8.1 D, RBC 3.90, Hgb 11.3 L, Hct 34.4 L, MCV 88.2, MCH 29.0 , MCHC 32.8, RDW 13.7, Plt Count 389, MPV 8.2, Gran % 60.6, Lymph % (Auto) 26.3 , Moore % (Auto) 5.3, Eos % (Auto) 6.8 H, Baso % (Auto) 1.0, Gran # 4.87, Lymph # (Auto) 2.1, Moore # (Auto) 0.4, Eos # (Auto) 0.6, Baso # (Auto) 0.08 Vital Signs Temp Pulse Resp BP Pulse Ox 12/07/17 16:00 83 131/95 H 12/07/17 12:50 134/82 12/07/17 06:53 98.2 F 71 19 134/82 12/07/17 04:00 97.5 F L 85 20 165/111 H 12/07/17 02:17 97.5 F L 12/07/17 01:00 98.4 F 88 18 128/83 97 12/06/17 22:57 98 F 92 H 22 121/81 98 12/06/17 20:33 97.9 F 97 H 22 127/81 97 12/06/17 15:01 97.4 F L 82 19 139/83 98 12/06/17 12:30 91 H 18 136/81 98 12/06/17 11:48 97.6 F 98 H 18 158/95 H 98 12/06/17 11:39 97.4 F L 99 H 18 140/94 H 97 this admission patient did not allow this display card writer to talk to her mother, did not give consent pt was seen by , neurologist 12/08/17, input appreciated, impression: trigeminal neuralgia and stimulant withdrawals. findings discussed with pt. pt was educated that stimulants are not good choice of medication for her, and causing psychosis. Patient's pharmacy contacted 12/08/17 patient was on following medications: prescriber Dr.Paul Rai Lunesta 3 mg at the nighttime Lexapro 20 mg daily, Adderall 20 mg 2 pills at the morning time and 1 pill at the nighttime filled in 11/27/2017, before that Adderall XL was prescribed to the patient patient filled that medication on patient was on clindamycin 300 mg twice a day Filled on 11/21/2017 patient also was on Xanax 2 mg 3 times a day patient also was on [place] in 2017 Neurontin 300 mg 3 times a day. Pt's mother contacted this display card writer 12/09/17, reported that pt has ENT surgeon on MondayDecember 12 and pt was waiting for this appt for "months", pt's right "sinusis bone collapsed, he was keep asking if Jacqui snorted cocaine, which she did not", pt was on Intranasal steroids prior to come to the hospital, pt also was on antibiotics for severe sinus infection and "because her nasal bone collapsed she cannot have sufficient nasal drainage", pt did not give permission to disclose any info to her mother which this display card writer respected, but pt's mother disclosed info above. will consider to d/c pt on Monday am. overall patient improved on Risperdal 0.5 mg twice a day, patient was on 1 mg twice a day but patient reported that she was feeling "too sedated". Patient was advised not to take any stimulants patient verbalize understanding pt mother came and pick pt up today and took pt to see to ENT surgeon as per PMD , pt should not be d/c on abx. At the time of the discharge pt denied been depressed, denied thoughts of harming self or others, denied psychotic symptoms, and pt does not appeared to be psychotic, denied been anxious, pt is not in imminent danger to self or others, will be following up at 's office, information about follow up appointment, time and address provided to the pt, it is patient responsibility to follow up with outpatient clinic, PMD as well as specialists (see SW note for more detailed information). In case pt will need to obtain results of studies pending at discharge pt was provided with contact information of Psychiatric Inpatient unit [phone] as well as Medical Record Department [phone]. patient was advised to stay away from stimulants pt was provided with prescriptions for risperdal only, pt had all meds filled less than 2 weeks ago, one month of meds given to the pt. (please see medication reconciliation form) Pt was educated about safety plan in case of worsening of symptoms or in case of suicidal or homicidal ideation call 911 or go to the nearest ER, also was educated to take meds as prescribed and stay away from drugs, pt verbalized understanding. 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 Priority: High (2) Generalized anxiety disorder Status: Chronic Priority: Medium - Final Diagnosis (DSM 5) Condition upon Discharge: IMPROVED DSM 5: pt also was prescribed steroids prior to come to the hospital for sinus infection Disposition: HOME/ ROUTINE Follow-up Treatment Plan: At the time of the discharge pt denied been depressed, denied thoughts of harming self or others, denied psychotic symptoms, and pt does not appeared to be psychotic, denied been anxious, pt is not in imminent danger to self or others, will be following up at 's office, information about follow up appointment, time and address provided to the pt, it is patient responsibility to follow up with outpatient clinic, PMD as well as specialists (see SW note for more detailed information). In case pt will need to obtain results of studies pending at discharge pt was provided with contact information of Psychiatric Inpatient unit [phone] as well as Medical Record Department [phone]. patient was advised to stay away from stimulants pt was provided with prescriptions for risperdal only, pt had all meds filled less than 2 weeks ago, one month of meds given to the pt. (please see medication reconciliation form) Pt was educated about safety plan in case of worsening of symptoms or in case of suicidal or homicidal ideation call 911 or go to the nearest ER, also was educated to take meds as prescribed and stay away from drugs, pt verbalized understanding. Prescriptions/Medication Reconciliation: Risperidone [Risperdal] 0.5 mg PO AMHS #30 tablet - Smoking Cessation Smoking Cessation Medication prescribed: No Reason for not providing: denied smoking - Antipsychotic Medications Pt discharged on 2 or more routine antipsychotic medications: No
== END 2017-12-12 12:02 | disposition home or self-care (01) | DRG 897 ==
LOC: ED 11:27 → ERH 12-07 00:19 → PSYC 12-07 01:26
PROVIDERS: ADMIT Psychiatry & Neurology Psychiatry; ATTEND Psychiatry & Neurology Psychiatry
DX: F15.159 Other stimulant abuse with stimulant-induced psychotic disorder, unspecified (principal); N39.0 Urinary tract infection, site not specified; E03.9 Hypothyroidism, unspecified; F41.0 Panic disorder [episodic paroxysmal anxiety]; F32.9 Major depressive disorder, single episode, unspecified; F41.1 Generalized anxiety disorder; F43.10 Post-traumatic stress disorder, unspecified; I10 Essential (primary) hypertension; M06.9 Rheumatoid arthritis, unspecified; N20.0 Calculus of kidney; K44.9 Diaphragmatic hernia without obstruction or gangrene; M32.9 Systemic lupus erythematosus, unspecified; G50.0 Trigeminal neuralgia; G62.9 Polyneuropathy, unspecified; M79.7 Fibromyalgia; Z88.0 Allergy status to penicillin; Z86.018 Personal history of other benign neoplasm